=== PATIENT | female | born 1965 | race Caucasian/White ===

== ENCOUNTER → 2023-05-01 10:44 | Outpatient (BNVA) | payer OTHER, SELFPAY | PROVIDERS: Visit Provider Physician Assistant Surgical ==

== ENCOUNTER → 2023-05-14 11:07 | Outpatient (BNVA) | payer OTHER, SELFPAY | PROVIDERS: Visit Provider Surgery ==

== ENCOUNTER 2023-05-21 09:03 | Outpatient (REF) | payer OTHER, SELFPAY ==
--- NOTE | ~2023-05-21 | XR_ITS ---
EXAMINATION: XR CHEST CLINICAL INFORMATION: Morbid obesity. Preop. COMPARISON: None available. TECHNIQUE: 2 views of the chest were obtained. FINDINGS: No significant abnormality is noted involving the heart, lungs, mediastinum, bony thorax or soft tissues. XR/XR chest 2V IMPRESSION: No acute disease.
--- NOTE | 2023-05-21 09:13 | ECG_ITS ---
Test Reason : MORBID OBESITY Blood Pressure : / mmHG Vent. Rate : 080 BPM Atrial Rate : 080 BPM P-R Int : 138 ms QRS Dur : 084 ms QT Int : 394 ms P-R-T Axes : 031 083 018 degrees QTc Int : 454 ms Artifact in tracing Normal sinus rhythm Nonspecific T wave abnormality Abnormal ECG No previous ECGs available Referred By: Trav Florentino Electronically Signed By:CORRINA RUFF
[2023-05-21 09:32] LABS: MANUAL DIFF FLAG NO
[2023-05-21 09:46] LABS: Basophils Percent Auto 0.4 % (0-2); Eosinophils Absolute Auto 0.1 X10*3/uL (0.0-0.4); Eosinophils Percent Auto 0.7 % (0-4); Hematocrit 38.1 % (37.0-47.0); Imm Gran Abs Auto 0.02 X10*3/uL (0.00-0.03); Imm Gran Pct Auto 0.2 % (0.0-0.4); Lymphocytes Absolute Auto 1.6 X10*3/uL (1.2-4.9); Lymphocytes Percent Auto 16.3 % (20-40); Mean Corpuscular HGB Conc 34.1 g/dl (31.0-35.0); Mean Corpuscular Hemoglobin 27.8 pg (27.0-33.0); Mean Corpuscular Volume 81.4 fL (80.0-98.0); Mean Platelet Volume 12.5 fL (9.4-12.3); Monocytes Absolute Auto 0.8 X10*3/uL (0.1-1.2); Monocytes Percent Auto 8.2 % (2-11); Neutrophils Absolute Auto 7.2 x10*3/uL (2.0-8.3); Neutrophils Percent Auto 74.2 % (45-73); Platelet Count 185 X10*3/uL (160-400); Red Blood Count 4.68 X10*6/uL (4.20-5.50); Red Cell Distribution Width 13.2 % (11.0-16.0); White Blood Count 9.7 X10*3/uL (4.8-10.8)
[2023-05-21 10:15] LABS: Estimated Average Glucose 114 mg/dL; Hemoglobin A1c % 5.6 %
[2023-05-21 11:19] LABS: Folate 10.3 ng/mL (> or = 4.0); Vitamin B12 399 pg/mL (200-900)
[2023-05-21 12:02] LABS: Alanine Aminotransferase 20 U/L (0-31); Albumin Level 4.3 g/dL (3.5-5.0); Alkaline Phosphatase 89 U/L (39-117); Anion Gap 14 (12-20); Aspartate Amino Transferase 21 U/L (5-31); Blood Urea Nitrogen 16 mg/dL (9-16); Carbon Dioxide 30 mmol/L (22-29); Chloride 102 mmol/L (96-108); Cholesterol 157 mg/dL; Estimated Glomerular Filt Rate > 60; Glucose Random 108 mg/dL (60-115); HDL Cholesterol 33 mg/dL; Iron 46 mcg/dL (30-160); LDL Cholesterol Calculated 100 mg/dl; Percent Iron Saturation 17 % (15-50); Potassium 3.6 mmol/L (3.3-5.1); Sodium 142 mmol/L (135-145); Total Iron Binding Capacity 264 mcg/dL (228-428); Total Protein 7.5 g/dL (6.5-8.0); Triglycerides 120 mg/dL; Unsaturated Iron Binding 218 ug/dL
[2023-05-21 12:21] LABS: Ferritin 161 ng/mL (10-250); TSH reflex Free T4 2.05 uIU/mL (0.32-4.0); Vitamin D 25-OH Total 40.5 ng/mL (>30)
[2023-05-21 12:42] LABS: Insulin 13 uU/mL (2-29)
[2023-05-22 20:38] LABS: Calcium (PTHI) 9.5 mg/dL (8.6-10.4); PTHI 76 pg/mL (16-77)
[2023-05-24 06:13] LABS: Zinc 79 mcg/dL (60-130)
[2023-05-24 23:48] LABS: Vitamin A 48 mcg/dL (38-98)
[2023-05-25 14:48] LABS: Vitamin B1 9 nmol/L (8-30)
== END 2023-05-21 09:04 | disposition home or self-care (01) ==
LOC: HO.LAB 09:03
PROVIDERS: PCP Internal Medicine; Visit Provider Surgery
DX: E03.9 Hypothyroidism, unspecified (principal); E66.01 Morbid (severe) obesity due to excess calories; I10 Essential (primary) hypertension; E78.5 Hyperlipidemia, unspecified
CPT/HCPCS: 36415; 71046; 80053; 80061; 82306; 82607; 82728; 82746; 83036; 83525; 83540; 83970; 84425; 84443; 84590; 84630; 85025; 86140; 93005

== ENCOUNTER 2023-05-28 08:38 | Outpatient (REF) | payer OTHER, SELFPAY ==
--- NOTE | ~2023-05-28 | US_ITS ---
EXAMINATION: US COMPLETE ABDOMEN WITH LIVER ELASTOGRAPHY CLINICAL INFORMATION: Morbid obesity. COMPARISON: None available. TECHNIQUE: Real-time imaging of the abdominal viscera. Noninvasive ultrasound liver fibrosis assessment is performed using Tree ElastPQ point quantification shear wave elastography (2D-SWE) with a C5-2 MHz transducer. Multiple elastography samples are obtained. FINDINGS: PANCREAS: Normal. The visualized pancreatic head and body are normal in appearance. The remainder of the pancreas is obscured from visualization by the overlying bowel gas. ABDOMINAL AORTA: The proximal, middle, and distal aortic segments are normal in caliber. INFERIOR VENA CAVA: Visualized portions are normal. LIVER: The liver has diffuse increased echogenicity consistent with fatty infiltration/hepatocellular disease. No focal mass or intrahepatic bile duct dilatation is seen. The right lobe measures 15.7 cm in length. The left lobe measures 8.9 cm in length. Portal flow is hepatopedal. Shear wave liver elastography median stiffness is 2.04 m/s (reference: normal median stiffness is 1.3 m/s or less). IQR/median stiffness to assess sampling precision is 0.19 (reference: good quality data set is IQR/median stiffness of 0.15 or less). Elasticity measurements were limited due to difficulty to get accurate areas to sample. GALLBLADDER: Cholelithiasis is present. There appears to be an echogenic focus consistent with cholesterol crystal. With the gallbladder wall not being thickened and with lack of multiple echogenic foci with twinkle artifact I do not feel that this is related to adenomyomatosis. COMMON BILE DUCT: Normal in caliber measuring 0.5 cm in diameter. RIGHT KIDNEY: Normal. No hydronephrosis. No renal calculi or focal parenchymal lesions. The kidney measures 10.6 cm in maximum dimension. LEFT KIDNEY: Normal without hydronephrosis. No renal calculi or focal parenchymal lesions identified. The kidney measures 11.3 cm in maximum dimension. SPLEEN: Normal. The spleen measures 11.4 cm in maximum dimension. FREE FLUID: None. US/US abdomen comp w elastography IMPRESSION: 1. Diffuse increased echogenicity of the liver consistent with fatty infiltration/hepatocellular disease. Cholelithiasis with cholesterol polyp. 2. Liver elastography: Although measurements are suggestive of compensated advanced chronic liver disease, there is statistical variability of the sampling which decreases accuracy. REFERENCE: Society of Radiologists in Ultrasound Liver Stiffness Thresholds (2020): LIVER STIFFNESS THRESHOLDS: *Liver Stiffness equal or less than 1.3 m/s: High probability of being normal. *Liver Stiffness less than 1.7 m/s: In the absence of other known clinical signs, rules out compensated advanced chronic liver disease. *Liver Stiffness 1.7-2.1 m/s: Suggestive of compensated advanced chronic liver disease but need further test for confirmation. *Liver Stiffness over 2.1 m/s: Rules in compensated advanced chronic liver disease. *Liver Stiffness over 2.4 m/s: Suggestive of clinically significant portal hypertension. QUALITY OF DATA SET: *IQR/Median value equal or less than 0.15 implies a quality data set. *IQR/Median value over 0.15 implies a poor quality data set. SIGNIFICANT CHANGE FROM PRIOR EXAM: Significant change if liver stiffness measurement is 10% or greater from prior exam. OTHER CONSIDERATIONS: The stage of liver fibrosis may be overestimated in the setting of acute hepatitis, liver inflammation, elevated liver function tests, hepatic vascular congestion, obstructive cholestasis, non-fasting state, and infiltrative diseases such as amyloidosis and lymphoma. In some patients with NAFLD, the liver stiffness thresholds for compensated advanced chronic liver disease may be lower. In causes other than viral hepatitis and NAFLD, liver stiffness thresholds are not well established.
== END 2023-05-28 08:39 | disposition home or self-care (01) ==
LOC: HO.US 08:38
PROVIDERS: PCP Internal Medicine; Visit Provider Surgery
DX: E66.01 Morbid (severe) obesity due to excess calories (principal); E03.9 Hypothyroidism, unspecified; I10 Essential (primary) hypertension
CPT/HCPCS: 76705; 76981

== ENCOUNTER 2023-06-05 13:14 | Outpatient (AMB) | payer OTHER, SELFPAY ==
--- NOTE | 2023-06-05 13:06 | MHC.AMNUTRGE ---
Intake VS Expanded 06/05/23 13:11 Height 5 ft 3 in Weight 222 lb BMI 39.3 Intake Visit Reasons: VIDEO Initial Nutrition SWL Blocker Heated Metal Forms Required: No Allergies No Known Allergies Allergy (Verified 05/14/23 11:36) HPI Nutrition Presentation Details [employer]CH[employer] weight 05/14/23 - 229# Current weight 222# Reason for consult elevated BMI Diet Assmnt Details 2 protein shakes Zone perfect bar dinner: 8 forks of protein, and same amount of salad zone perfect bar Exercise: doing a variety of things , stationary bike, swimming, walking SWL online classes: completed. scored well Patient shares she really appreciates the support that the program provides. This attracted her to our program initially. Dietary counseling reduction Who buys your food self Who prepares/cooks your food self Meal frequency regular: lunch (avocado toast), dinner (protein and veg) and snacks (portuguese yogurt) and irregular: breakfast Lifestyle Eating out 1-3 times/week Family support Yes (she is having a family reunion ) Food frequency Dairy: daily, Fruit: daily, Vegetables: daily, Grains/pasta/breads/cereal (carbs): daily, Meats/poultry/fish (protein): daily, Meat substitutes/nuts/seeds/legumes: daily, Processed foods/meats: daily and Restaurants/fast foods: several times weekly (pizza, lithuanian food or grinders . Used to dine out and get salmon, chicken, chicken parm) Diagnosis Nutrition problem #1 overweight/obesity As related to (etiology) #1 excess energy intake and physical inactivity As evidenced by (sign/symptom) #1 high BMI Monitoring/Goals Nutrition problem monitoring total energy intake, level of knowledge/skill, total PRO intake, total CHO intake and weight Outcome progress progressing Learning/Education Readiness to learn excellent Stages of change action Educational materials provided Yes Most Recent Diabetes Results: Cholesterol 157 mg/dL 05/21/23 HDL Cholesterol 33 mg/dL 05/21/23 Triglycerides 120 mg/dL 05/21/23 Creatinine 0.84 mg/dL (0.5-1.4) 05/21/23 Blood Urea Nitrogen 16 mg/dL (9-16) 05/21/23 Sodium 142 mmol/L (135-145) 05/21/23 Potassium 3.6 mmol/L (3.3-5.1) 05/21/23 Chloride 102 mmol/L (96-108) 05/21/23 Carbon Dioxide 30 mmol/L (22-29) H 05/21/23 Calcium 10.0 mg/dL (8.4-10.2) 05/21/23 AST 21 U/L (5-31) 05/21/23 ALT 20 U/L (0-31) 05/21/23 Total Protein 7.5 g/dL (6.5-8.0) 05/21/23 Albumin 4.3 g/dL (3.5-5.0) 05/21/23 [facility] Medical History (Updated 05/25/23 @ 21:49 by Trav Florentino MD) DJD (degenerative joint disease) Hyperlipidemia Hypertension Hypothyroidism Morbid obesity Surgical History (Updated 05/01/23 @ 10:52 by SOFIA Daley) History of salpingo-oophorectomy Hx of section Hx of tonsillectomy Family History (Updated 05/01/23 @ 11:00 by SOFIA Daley) Mother Cancer Father Cancer Brother No problems noted. Brother No problems noted. Brother No problems noted. Brother No problems noted. Brother No problems noted. Sister No problems noted. Sister No problems noted. Son No problems noted. Daughter No problems noted. Daughter Hyperthyroidism Social History (Updated 05/01/23 @ 10:51 by SOFIA Daley) Alcohol intake: never Patient Tobacco Use Status: Never used Tobacco Assessment & Plan Assessment & Plan (1) Morbid obesity: Code(s): E66.01 - Morbid (severe) obesity due to excess calories Patient Instructions: Patient is cleared from a nutrition standpoint for bariatric surgery. Educational requirements have been completed. Reviewed vitamin supplementation and commitment to protein shake for several months post surgery. Encouraged communication with office as needed. Telehealth Telehealth Location of provider rendering services: practice address Location of patient: address on file Patient Identification confirmed using: Name, : Yes Telehealth method: video Patient verbally consented to treatment: Yes Patient verbally consented to billing insurance company: Yes Patient informed of any privacy concerns related to visit: Yes Minutes spent on Phone/Video with Pt.: 30 Coding Level of Care Code Nutr Indiv Subseq (46040) Diagnoses Morbid obesity E66.01 Time Spent (min) 30
[2023-06-05 13:11] VITALS: BMI 39.3
== END 2023-06-05 13:36 | disposition home or self-care (01) ==
LOC: HO.HBS 13:14
PROVIDERS: PCP Internal Medicine; Visit Provider Dietitian, Registered
DX: E66.01 Morbid (severe) obesity due to excess calories (principal)

== ENCOUNTER → 2023-06-05 13:14 | Outpatient (BNVA) | payer OTHER, SELFPAY | PROVIDERS: PCP Internal Medicine; Visit Provider Dietitian, Registered | DX: E66.01 Morbid (severe) obesity due to excess calories (principal); Z68.39 Body mass index [BMI] 39.0-39.9, adult; Z71.3 Dietary counseling and surveillance | CPT/HCPCS: 97803 ==

== ENCOUNTER 2023-06-18 08:30 | Outpatient (AMB) | payer OTHER, SELFPAY ==
--- NOTE | 2023-06-18 08:47 | A.OFFWM_ITS ---
Intake Intake Visit Reasons: VIDEO BH Intake Allergies No Known Allergies Allergy (Verified 05/14/23 11:36) [facility] Medical History (Updated 06/18/23 @ 09:23 by Kay Iraheta) DJD (degenerative joint disease) Hyperlipidemia Hypertension Hypothyroidism Morbid obesity Surgical History (Updated 05/01/23 @ 10:52 by SOFIA Daley) History of salpingo-oophorectomy Hx of section Hx of tonsillectomy Family History (Updated 05/01/23 @ 11:00 by SOFIA Daley) Mother Cancer Father Cancer Brother No problems noted. Brother No problems noted. Brother No problems noted. Brother No problems noted. Brother No problems noted. Sister No problems noted. Sister No problems noted. Son No problems noted. Daughter No problems noted. Daughter Hyperthyroidism Social History (Updated 05/01/23 @ 10:51 by SOFIA Daley) Alcohol intake: never Patient Tobacco Use Status: Never used Tobacco Behavioral Health Assessment Weight Management Therapy Therapy Notes Details Patient is looking to have weight loss surgery to help improve her health and quality of life. She reported years a go over 20 years ago, she was in therapy due to dysfunctional marriage, she used therapy for support and to cope. She denied any inpatient psychiatric admissions, or problems with drugs. She reported a distant past with alcohol (binge drinking but has not drank for 14 years). No eating disorder diagnosis per her report. Presenting Concerns Referral Source provider Reason for referral weight loss surgery evaluation Precipitating Event obesity Living Situation Current Living Situation Own At risk of losing current housing? No Satisfied with current living situation? Yes Comments Pt lives with her 22 year old daughter and her . Food/Weight/Diet Expectations of change weight loss and maintenance. History/Relationship with food Pt stated that she cut out bread and rice years ago. She reported eating pasta, ice cream every night, Kyrgyz yogurt with gra montse, avocado toast, multigrain crackers and fruit, or chips, meats, potatoes, veggies of all kind. She would stop eating around 7pm. She reported eating large portions some of the time. History/Relationship with weight Pt stated that after menopause she struggled with her weight. However always struggled with weight fluctuations. History/Relationship with dieting She stated that several years ago she cut out white carbs and exercised but could not prevent weight gain post menopause. Binge Eating Do you frequently eat large amounts of food in short periods of time, not feeling physically hungry? Yes Do you feel out of control when you eat a large amount of food in a short period of time? No Do you eat large amounts of food rapidly and typically alone? No Night Eating Do you wake up at least once during the night to eat? No If you wake up in the night, do you find that it is necessary to eat something in order to fall back asleep? No Do you have little or no appetite in the morning and feel very hungry in the evening, often overeating between dinner and when you go to bed? No Social History Family history and relationship Patient is to her second . She has two step daughters and two biological adult children. She was born and raised in [place] [facility] by her parents, she is one of 8 children. Parental/Familial solar installer obligations none Developmental history and status none noted Social support family, , children Community support oriental orthodox Restorationist/Spirituality Baptist Cultural/Ethnic information Korean Legal Involvement and History Current or historical involvement with the legal system? none reported Education Preferred learning style Auditory, Verbal, Written, Learn by doing and Visual Currently enrolled in educational program? No Interested in further educational program? 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 No Meaningful activities exercise, swimming, Financial Situation Describe current financial situation Occasional struggle Financial assistance? None Service Service? No Mental Health and Addiction Treatment Current/Past substance abuse? No Current/Past addictive behavior concerns? No Medical and Physical Health Summary Physical exam in the last year? Yes Pain Screening Current pain? No Pain in the last few months? No Medications Is the patient compliant with medications? Yes Does the patient have Polo Guardian in place? Not applicable Does the patient use complimentary health approaches? No Trauma/Abuse History History of trauma? No Questionnaires PHQ-9 Over the last 2 weeks, how often have you been bothered by any of the following problems? 1. Little interest or pleasure in doing things: not at all 2. Feeling down, depressed, or hopeless: not at all 3. Trouble falling or staying asleep, or sleeping too much: several days 4. Feeling tired or having little energy: several days 5. Poor appetite or overeating: several days 6. Feeling bad about yourself - or that you are a failure or have let yourself or your family down: not at all 7. Trouble concentrating on things, such as reading the newspaper or watching television: not at all 8. Moving or speaking so slowly that other people could have noticed. Or the opposite - being so fidgety or restless that you have been moving around a lot more than usual: not at all 9. Thoughts that you would be better off or of hurting yourself in some way: not at all Total score: 3 Depression Screening Interpretation: Negative Source: Developed by Drs. Christian Sosa, Kathryn Rodarte, Quinton Fang and colleagues, with an educational mark from [employer]. Binge Eating Scale Group 1 A. I don't feel self-conscious about my wt. or body size when I'm with others. B. I feel concerned about how I look to others, but it normally does not make me fell disappointed with myself C. I do get self-conscious about my appearance and wt. which makes me feel disappointed in myself. D. I feel very self-conscious about my wt. and frequently I feel intense shame and disgust for myself. I try to avoid social contacts because of my self- consciousness. Response Group 1: C Group 2 A. I don't have any difficulty eating slowly in the proper manner. B. Although I seem to gobble down foods, I don't end up feeling stuffed because of eating to much. C. At times, I tend to eat quickly and then, I feel uncomfortably full afterwards. D. I have the habit of bolting down my food, without really chewing it. When this happens I usually feel uncomfortably stuffed because I've eaten to much. Response Group 2: C Group 3 A. I feel capable to control my eating urges when I want to. B. I feel like I have failed to control my eating more than the average person. C. I feel utterly helpless when it comes to feeling in control of my eating urges. D. Because I feel so helpless about controlling my eating I have become very desperate about trying to get control. Response Group 3: A Group 4 A. I don't have the habit of eating when I'm bored. B. I sometimes eat when I'm bored, but often I'm able to get busy and get my mind off food. C. I have a regular habit of eating when I'm bored, but occasionally, I can use some other activity to get my mind off eating. D. I have a strong habit of eating when I'm bored. Nothing seems to help me breath the habit. Response Group 4: B Group 5 A. I'm usually physically hungry when I eat something. B. Occasionally, I eat something on impulse even though I really am not hungry. C. I have the regular habit of eating foods, that I might not really enjoy, to satisfy a hungry feeling even though physically, I don't need the food. D. Although I'm not physically hungry, I get a hungry feeling in my mouth that only seems to be satisfied when I eat a food, like sandwich, that fills my mouth. Sometimes, when I eat the food to satisfy my mouth hunger, I then spit the food out so I won't gain weight. Response Group 5: B Group 6 A. I don't feel any guilt or self-hate after I overeat. B. After I overeat, occasionally I feel guilt or self-hate. C. Almost all the time I experience strong guilt or self-hate after I overeat. Response Group 6: A Group 7 A. I don't lose total control of my eating when dieting even after periods when I overeat. B. Sometimes when I eat a forbidden food on a diet, I feel like I blew it and eat even more. C. Frequently, I have the habit of saying to myself, I've blown it now, why not go all the way, when I overeat on a diet. When that happens I eat more. D. I have a regular habit of starting a strict diets for myself but I break the diets by going on an eating binge. My life seems to be either a feast or famine. Response Group 7: A Group 8 A. I rarely eat so much food that I feel uncomfortably stuffed afterwards. B. Usually about once a month, I each such a quantity of food, I end up feeling very stuffed. C. I have regular periods during the month when I eat large amounts of food, either at mealtime or at snacks. D. I eat so much food that I regularly feel quite uncomfortable after eating and sometimes a bit nauseous. Response Group 8: B Group 9 A. My level of calorie intake does not go up very high or go down very low on a regular basis. B. Sometimes after I overeat, I will try to reduce my caloric intake to almost nothing to compensate for the excess calories I've eaten. C. I have a regular habit of overeating during the night. It seems that my routine is not to be hungry in the morning but overeat in the evening. D. In my adult years, I have had week-long periods where I practically starve myself. This follows periods when I overeat. It seems I live a life of either feast or famine. Response Group 9: A Group 10 A. I usually am able to stop eating when I want to. I know when enough is enough. B. Every so often, I experience a compulsion to eat which I can't seem to control. C. Frequently, I experience strong urges to eat which I seem unable to control, but at other times I can control my eating urges. D. I feel incapable of controlling urges to eat. I have a fear of not being able to stop eating voluntarily. Response Group 10: A Group 11 A. I don't have any problem stopping eating when I feel full. B. I usually can stop eating when I feel full but occasionally overeat leaving me feeling uncomfortably stuffed. C. I have a problem stopping eating once I start and usually I feel uncomfortably stuffed after I eat a meal. D. Because I have a problem not being able to stop eating when I want, I sometimes have to induce vomiting to relieve my stuffed feeling. Response Group 11: B Group 12 A. I seem to eat just as much when I'm with others, Family social gatherings as when I'm by myself. B. Sometimes, when I'm with other persons, I don't eat as much as I want to eat because I'm self-conscious about my eating. C. Frequently, I eat only a small amount of food when others are present, because I'm very embarrassed about my eating. D. I feel so ashamed about overeating that I pick times to overeat when I know no one will see me. I feel like a closet eater. Response Group 12: A Group 13 A. I eat three meals a day with only an occasional between meal snack. B. I eat 3 meals a day, but I also normally snack between meals. C. When I am snacking heavily, I get in the habit of skipping regular meals. D. There are regular periods when I seem to be continually eating, with no planned meals. Response Group 13: A Group 14 A. I don't think much about trying to control unwanted eating urges. B. At least some of the time, I feel my thoughts are pre-occupied with trying to control my eating urges. C. I feel that frequently I spend much time thinking about how much I ate or about trying not to eat anymore. D. It seems to me that most of my waking hours are pre-occupied by thoughts about eating or not eating. I feel like I'm constantly struggling not to eat. Response Group 14: B Group 15 A. I don't think about food a great deal. B. I have strong craving for food but they last only for brief periods of time. C. I have days when I can't seem to think about anything else but food. D. Most of my days seem to be pre-occupied with thoughts about food. I feel like I live to eat. Response Group 15: A Group 16 A. I usually know whether or not I'm physically hungry. I take the right portion of food to satisfy me. B. Occasionally, I feel uncertain about knowing whether or not I'm physically hungry. A these times it's hard to know how much food I should take to satisfy me. C. Even though I might know how many calories I should eat, I don't have any idea what is a normal amount of food for me. Response Group 16: A Binge Eating Score: 9 Score less than 17 Minimal Risk Score between 18-26 Moderate Risk Score between 27-46 High Risk Assessment & Plan Assessment & Plan (1) Adjustment disorder, unspecified: Code(s): F43.20 - Adjustment disorder, unspecified (2) Morbid obesity: Code(s): E66.01 - Morbid (severe) obesity due to excess calories Plan Patient is doing very well in the program. She is committed, motivated, and disciplined. She would make an excellent surgical candidate and is cleared for surgery when ready. Telehealth Telehealth Location of provider rendering services: practice address Location of patient: address on file Patient Identification confirmed using: Name, : Yes Telehealth method: video Patient verbally consented to treatment: Yes Patient verbally consented to billing insurance company: Yes Patient informed of any privacy concerns related to visit: Yes Minutes spent on Phone/Video with Pt.: 45 Coding Level of Care Code Tele Psy Diag Eval (12371) Diagnoses Adjustment disorder, unspecified F43.20 Morbid obesity E66.01 Time Spent (min) 45
== END 2023-06-18 09:18 | disposition home or self-care (01) ==
LOC: HO.HBST 09:16
PROVIDERS: PCP Internal Medicine; Visit Provider Counselor Mental Health
DX: F43.20 Adjustment disorder, unspecified (principal); E66.01 Morbid (severe) obesity due to excess calories
CPT/HCPCS: 90791

== ENCOUNTER → 2023-06-18 08:30 | Outpatient (BNVA) | payer OTHER, SELFPAY | PROVIDERS: PCP Internal Medicine; Visit Provider Counselor Mental Health ==

== ENCOUNTER 2023-06-19 09:14 | Outpatient (REF) | payer OTHER, SELFPAY ==
[2023-06-24 14:57] LABS: H Pylori Breath Test Negative (Negative)
== END 2023-06-19 09:15 | disposition home or self-care (01) ==
LOC: HO.LNP 09:14
PROVIDERS: Surgery; PCP Internal Medicine; Visit Provider Physician Assistant Surgical
DX: E66.01 Morbid (severe) obesity due to excess calories (principal)
CPT/HCPCS: 83013

== ENCOUNTER 2023-06-19 09:14 | Outpatient (AMB) | payer OTHER, SELFPAY ==
--- NOTE | 2023-06-19 09:27 | A.OFFVIS_ITS ---
Intake VS Expanded 06/19/23 09:33 Height 5 ft 3 in Weight 215 lb 9.6 oz BMI 38.2 BP 148/69 H Blood Pressure Location Rt brachial Blood Pressure Position Sitting Pulse 72 Pulse Source Pulse Oximeter Temp 97.4 F Temperature Source Temporal Artery Scan Pulse Oximetry 98 Oxygen Delivery Method Room Air Body Fat 105.6 Body Fat Percentage 49.0 Free Fat Mass 109.8 Muscle Mass 104.2 Visceral Mass 15.0 Water Mass 77.8 BMR 1,561 Intake Visit Reasons: (OV) F/U SWL & H. Pylori X Ray Technician Required: No Allergies No Known Allergies Allergy (Verified 06/19/23 09:32) Medication List - Last Reconciled 06/19/23 by NATE Pena [AIRBORNE IMMUNE SUPPORT PO] atorvastatin 10 mg PO DAILY levothyroxine 50 mcg PO DAILY lisinopril 30 mg PO DAILY mecobalamin (vitamin B12) 1,000 mcg sublingual DAILY HPI HPI Comments History of Present Illness Details 58 yo female returns for Pre-op care Initial weight on 05/14/23 was 229 pounds with a BMI of 40.6 Weight today is: 215.6 pounds with a BMI of 38.2 weight loss: 13.4 pounds or 5.8 % TBWL She states she was decreased on her BP med lisinopril by her PCP about 2 weeks ago. She still experiences 1-2 x per week a lightheaded feeling upon arising from a seated position. BP at home 100s-110/50s-60s after the decrease of her lisinopril. She is still taking HCTZ 12.5 mg daily. States following meal plan exactly but notices some hunger in the morning and before dinner. meal plan: 2 plant-based organic Orgain protein (buy at [employer], [employer], [employer], [employer]) shakes (HALF scoop EACH in 8oz low fat unsweetened almond milk each) at 5am-7am and 8am-10am, 2 protein bars (Zone Perfect protein bars, buy at [employer], [employer], [employer], or [employer]) at 11am-1pm and 2pm-4pm, dinner at 5pm (8 forks of protein and 8 forks of salad/vegetables) AND one more protein bar after dinner at 7pm-9pm. Drinking 64 oz water daily exercise plan: walking 3-4 x per week 30-45 minutes, about 300 calories bike, 3 x per week 15 minutes, 50 calories walking in pool 3 x per week, 20-30 minutes [facility] Medical History (Updated 06/19/23 @ 10:11 by NAET Pena) DJD (degenerative joint disease) Hyperlipidemia Hypertension Hypothyroidism Morbid obesity Surgical History History of salpingo-oophorectomy Hx of section Hx of tonsillectomy Family History Mother Cancer Father Cancer Brother No problems noted. Brother No problems noted. Brother No problems noted. Brother No problems noted. Brother No problems noted. Sister No problems noted. Sister No problems noted. Son No problems noted. Daughter No problems noted. Daughter Hyperthyroidism Social History Alcohol intake: never Patient Tobacco Use Status: Never used Tobacco Review of Systems Const All systems reviewed & are unremarkable except as noted in HPI and below Physical Exam Const General: healthy appearing and no acute distress Resp Effort & Inspection: normal respiratory effort Auscultation: clear to auscultation bilaterally Cardio Rate: regular rate Rhythm: regular rhythm GI Auscultation: normal bowel sounds Extrem General: Yes normal to inspection Assessment & Plan Assessment & Plan (1) Obesity (BMI 30-39.9): Code(s): E66.9 - Obesity, unspecified Plan: change meal plan to: 2 plant-based organic Orgain protein shakes (HALF scoop EACH in 8oz low fat unsweetened almond milk each) at 5am-7am and 8am-10am, 2 protein bars (Zone Perfect protein bars) at 11am-1pm and 2pm-4pm, dinner at 5pm (8 forks of protein and 8 forks of salad/vegetables) AND 1/2 protein bar after dinner at 7pm-8pm. Cleared by RD/BH awaiting UGI continue exercises reminded of upcoming appt w Dr Hicks (2) Hypertension: Code(s): I10 - Essential (primary) hypertension Plan: Lisinopril decreased to 30 mg and pt still sx suggested to stop HCTZ She wanted to discuss with Dr Hicks Coding Level of Care Code Est Pt Level 3 (59660) Diagnoses Obesity (BMI 30-39.9) E66.9 Hypertension I10
[2023-06-19 09:33] VITALS: BP 148/69; PULSE 72; TEMP 36.3; O2SAT 98; BMI 38.2
== END 2023-06-19 10:14 | disposition home or self-care (01) ==
PROVIDERS: PCP Internal Medicine; Visit Provider Physician Assistant Surgical
DX: E66.9 Obesity, unspecified (principal); Z68.38 Body mass index [BMI] 38.0-38.9, adult; I10 Essential (primary) hypertension
CPT/HCPCS: 99213

== ENCOUNTER 2023-07-04 08:02 | Outpatient (AMB) | payer OTHER, SELFPAY ==
--- NOTE | 2023-07-04 08:49 | MHC.OFFVISWM ---
Intake VS Expanded 07/04/23 08:59 Height 5 ft 3 in Weight 210 lb 6 oz BMI 37.3 Body Fat 104.8 Body Fat Percentage 49.8 Free Fat Mass 105.8 Visceral Mass 19 Water Mass 72.4 BMR 1,403 Intake Visit Reasons: TV Follow Up SWL Allergies No Known Allergies Allergy (Verified 06/19/23 09:32) HPI TV Follow Up SWL HPI Details Start time: 8.45am, End time: 9.01am ?I spent 11 minutes speaking with the patient on the phone plus an additional 5 minutes reviewing and updating records for a total of 16 minutes HPI Comments History of Present Illness Details Overall weight loss: 18.4lbs, or 8.03% TBWL Is doing 2 Orgain protein shakes (1/2 scoop each in 8oz almond milk), 2-3 Zone Perfect protein bars, and one meal (8 forks of meat and 8 forks of salad or vegetables) Exercise: walking for 30 minutes, swimming for 30 minutes, stationary bike for 30 minutes for 300 calories per day or more PFSH Medical History (Updated 07/04/23 @ 08:58 by Trav Florentino MD) DJD (degenerative joint disease) Hyperlipidemia Hypertension Hypothyroidism Morbid obesity Surgical History History of salpingo-oophorectomy Hx of section Hx of tonsillectomy Family History Mother Cancer Father Cancer Brother No problems noted. Brother No problems noted. Brother No problems noted. Brother No problems noted. Brother No problems noted. Sister No problems noted. Sister No problems noted. Son No problems noted. Daughter No problems noted. Daughter Hyperthyroidism Social History Alcohol intake: never Patient Tobacco Use Status: Never used Tobacco Assessment & Plan Assessment & Plan (1) Obesity (BMI 30-39.9): Code(s): E66.9 - Obesity, unspecified Plan: 1. Continue same nutritional plan of 2 Orgain protein shakes (1/2 scoop each in 8oz almond milk), 2-3 Zone Perfect protein bars, and one meal (8 forks of meat and 8 forks of salad or vegetables) 2. Exercise: Continue walking for 30 minutes, swimming for 30 minutes, stationary bike for 30 minutes for 300 calories per day or more per day 3. Continue to send me weight measurements weekly on Wednesdays (2) BMI 37.0-37.9, adult: Code(s): Z68.37 - Body mass index [BMI] 37.0-37.9, adult Telehealth Telehealth Location of provider rendering services: practice address Location of patient: address on file Patient Identification confirmed using: Name, : Yes Telehealth method: voice only Patient verbally consented to treatment: Yes Patient verbally consented to billing insurance company: Yes Patient informed of any privacy concerns related to visit: Yes Minutes spent on Phone/Video with Pt.: 16 Coding Level of Care Code Tele Est Pt Level 2 (22546) Diagnoses Obesity (BMI 30-39.9) E66.9 BMI 37.0-37.9, adult Z68.37 Time Spent (min) 16
[2023-07-04 08:59] VITALS: BMI 37.3
== END 2023-07-04 09:02 | disposition home or self-care (01) ==
LOC: HO.HBS 08:02
PROVIDERS: PCP Internal Medicine; Visit Provider Surgery
DX: E66.9 Obesity, unspecified (principal); Z68.37 Body mass index [BMI] 37.0-37.9, adult
CPT/HCPCS: 99212

== ENCOUNTER → 2023-07-04 08:02 | Outpatient (BNVA) | payer OTHER, SELFPAY | PROVIDERS: PCP Internal Medicine; Visit Provider Surgery ==

== ENCOUNTER → 2023-07-06 08:43 | Outpatient (REF) | payer OTHER, SELFPAY ==
--- NOTE | ~2023-07-06 | NM_ITS ---
Exercise Myocardial perfusion study Indication: Abnormal EKG to evaluate for myocardial ischemia Technique: The patient was brought in for an exercise perfusion study on 07/06/2023. Patient performed exercise as per Barrett protocol and was injected 30 mCi of sestamibi was given intravenously one target HR was achieved. Images were obtained using the SPECT gamma camera interlaced with the gating device. Images were obtained in supine position. Resting perfusion study was performed on 07/10/2023. Patient was administered 30 mCi of sestamibi intravenously at rest. Images were then obtained in supine position. Images obtained with and without CT attenuation. Total DLP 157 mGy-cm. Images were processed with the software and compared side to side in short axis, horizontal long axis and vertical long axis views. Findings: The stress perfusion study showed both attenuated as well as non attenuated corrected images show normal uptake of radiotracer in all segments of LV myocardium. The gated study shows normal LV systolic function with calculated LVEF of greater than 70%. LV cavity is normal in size. The gated study shows normal systolic wall thickening and contraction of all segments. There is no transient ischemic dilation. Resting study shows both attenuated as well as non attenuated images show mildly reduced uptake in the apex of the LV myocardium. Gating at rest reveals normal systolic wall motion with ejection fraction at greater than 70%. The findings are consistent with normal myocardial perfusion. NM/NM cardiolite stress test Impression: 1. Normal myocardial perfusion 2. Gated LVEF is greater than 70% 3. Transient ischemic dilatation not present Stress EKG is suggestive of ischemia
--- NOTE | 2023-07-06 08:48 | CA_ITS ---
Acquisition Time: 2023-07-06 10:28:18 Total Exercise Time: 00:05:01 Test Indications: Abnornmal EKG Medications: Protocol: CHENG Max HR: 166 BPM 103% of Pred: 160 BPM Max BP: 144/082 mmHG Max Work Load: 7.0 METS Exercise stress test exercise 5 min 1 sec of Cheng protocol achieving 103% MPHR, with moderate SOB, no chest discomfort, without arrhythmias, with normotensive response to exercise, with downsloping ST lead 3, aVF, V4-V6 Nuclear images pending. Test reviewed with Dr. Crouch. Referred By: Trav Florentino Overread By: Tabitha Cornelius
--- NOTE | 2023-07-06 08:48 | CA_ITS ---
Transthoracic Echocardiogram Patient (Last, First, Middle): Molly Spann, Gender: Female Date of : 1965 Age: 58 Procedure Date: 07/06/2023 Procedure Type: Transthoracic Echocardiogram Location: OP Height: 160.02 cm Weight: 94.8 kg BSA: 1.97 m2 Heart Rate: bpm BP: 117 / 60 mmHg Assistant To The Vice President: TO Referring MD: Trav Florentino MD Symptoms: R94.31 - Abnormal electrocardiogram [ECG] [EKG] Study Quality: Fair/Contrast Conclusions: - Normal left ventricular size and systolic function. There is mildly increased left ventricular wall thickness. The visually estimated ejection fraction is between 55-60%. There is no evidence of regional wall motion abnormalities. Diastolic function is normal for age. - Normal right ventricular cavity size and systolic function. Findings Procedure Information Contrast agent, definity, is being given per protocol without apparent complications. Left Ventricle Normal left ventricular size and systolic function. There is mildly increased left ventricular wall thickness. The visually estimated ejection fraction is between 55-60%. There is no evidence of regional wall motion abnormalities. Diastolic function is normal for age. Right Ventricle Normal right ventricular cavity size and systolic function. Atria The left atrium is normal in size. The right atrium is normal in size. Aortic Valve Normal aortic valve structure and function. There is no aortic valve stenosis. There is no aortic valve regurgitation. Mitral Valve The mitral valve appears normal. There is no mitral valve regurgitation. There is no mitral valve stenosis. Pulmonic Valve The pulmonic valve is likely normal. Tricuspid Valve Normal tricuspid valve structure. There is trace tricuspid valve regurgitation. Tricuspid regurgitation envelope is inadequate for calculation of right ventricular systolic pressure. Normal right atrial pressure. Venous The inferior vena cava is normal in size and collapses greater than 50% with inspiration. Pericardium/Pleural There is no evidence of pericardial effusion. Prior Study Comparison No prior study available for comparison. Measurements 2D Linear Measurements IVSd: 1.10 0.6-0.9/0.6-1.0 cm LVIDd: 4.67 3.9-5.3/4.2-5.9 cm LVIDd Index: 2.37 2.4-3.2/2.2-3.1 cm/m2 LVIDs: 2.95 2.0-3.6 cm LVPWd: 1.04 0.7-1.1 cm LA Diam: 3.90 2.7-3.8/3.0-4.0 cm LAIDs Index: 1.98 1.5-2.3 cm/m2 LV Mass: 222.53 67-162/88-224 g LV Mass Index: 112.96 43-95/49-115 g/m2 LVOT Diam: 2.00 3.0+(-)1.3 cm 2D Systolic Function EF 4C: 61.10 >55% EF 2C: 64.70 >55% EF BiP: 64.10 >55% Mitral Valve MV Pk E: 0.65 MV PK A: 0.63 MV Decel Time: 167.00 E/A: 1.00 E'Lateral: 13.50 E'Medial: 8.70 E/E' Med: 7.40 E/E' Lat: 4.80 PHT: 49.00 MVA PHT: 4.49 Decel [place]: 3.87 Aortic Valve AoV Pk Graeme: 1.25 AoV Mn Graeme: 0.86 AoV VTI: 0.28 AoV Pk Grad: 6.00 Aov Mn Grad: 3.00 POLINA Cont.VTI: 2.28 LVOT LVOT Pk Graeme: 0.91 LVOT Mn Graeme: 0.57 LVOT VTI: 0.20 LVOT Pk Grad: 3.00 LVOT Mn Grad: 2.00 LVOT Diam: 2.00 LVOT Area: 3.14 Diastolic Function MV Pk E: 0.65 MV Pk A: 0.63 E/A: 1.00 E'Medial: 8.70 E/E' Med: 7.40 E' Laterial: 13.50 E/E' Lat: 4.80 Right Ventricle TAPSE (mm): 21.20 TVS' Graeme: 10.70 Tricuspid Valve RA Press: 3.00 Great Vessels Aorta Sinus of Valsalva: 2.82 2.0-3.[address] Ridge: 2.42 1.7-3.4 cm Ao Asc: 3.00 2.1-3.4 cm Updated in Other Vendor System with Status of Final Misbah Crouch MD electronically signed on 07/08/2023 5:42:08 PM with status of Final
== END ==
LOC: HO.CARD 08:43
PROVIDERS: Visit Provider Surgery
DX: R94.31 Abnormal electrocardiogram [ECG] [EKG] (principal)
CPT/HCPCS: 78452; 93017; 93306; A9500; Q9957

== ENCOUNTER → 2023-07-06 08:48 | Outpatient (BNV) | payer OTHER, SELFPAY | PROVIDERS: Visit Provider Nurse Practitioner | DX: R94.31 Abnormal electrocardiogram [ECG] [EKG] (principal) | CPT/HCPCS: 78452; 93016; 93018; 93306 ==

== ENCOUNTER 2023-07-19 09:37 | Outpatient (AMB) | payer OTHER, SELFPAY ==
[2023-07-19 09:55] VITALS: BP 140/80; PULSE 73; BMI 36.9
--- NOTE | 2023-07-19 09:55 | MHC.OFFVIS ---
Intake Vital Signs 07/19/23 09:55 Height 5 ft 3 in Weight 208 lb 1.862 oz BMI 36.9 BP 140/80 H Blood Pressure Location Lt brachial Position Sitting Pulse 73 Intake Visit Reasons: NPV/Abnormal cardiac function study/IChari Hillulos Intake Note: NPV Seo Marketing Specialist Required: No Accompanied by: Self / Same As Patient Allergies No Known Allergies Allergy (Verified 07/19/23 09:56) Medication List - Last Reconciled 07/19/23 by Everardo Varma MD [AIRBORNE IMMUNE SUPPORT PO] atorvastatin 10 mg PO DAILY levothyroxine 50 mcg PO DAILY lisinopril-hydrochlorothiazide 10-12.5 mg 1 tab PO DAILY mecobalamin (vitamin B12) 1,000 mcg sublingual DAILY HPI HPI Comments History of Present Illness Details Thank you for referring Molly in cardiology consultation today for preoperative cardiovascular risk stratification prior to bariatric surgery. She is a pleasant 58-year-old woman with prior S2 history of hypertension, hyperlipidemia has gender bariatric program and with the medical weight loss has lost about 22 lb and has been very motivated to pursue laparoscopic gastric sleeve correction. She was referred for preoperative cardiovascular risk stratification through your office. She underwent a treadmill stress test which at moderate workload was negative for any symptoms but EKG positive. Subsequent myocardial perfusion imaging shows normal myocardial perfusion suggestive false-positive EKG changes. She also had an echocardiogram which shows normal LV systolic function without major valvular abnormality and no obstructive physiology. Patient denies any cardiac symptoms. She says she exercise on a regular basis and walks for more than 30 minutes and performs aerobic exercise without any complaints. Her exercise capacity on the stress test was greater than 6 METs. She has no symptoms of heart failure. She has no symptoms of angina. No prolonged palpitation irregular heartbeat. Since medical intervention, she says a blood pressure has been reducing and she has cut down her antihypertensives. PFSH Medical History DJD (degenerative joint disease) Hyperlipidemia Hypertension Hypothyroidism Morbid obesity Surgical History History of salpingo-oophorectomy Hx of section Hx of tonsillectomy Family History Mother Cancer Father Cancer Brother No problems noted. Brother No problems noted. Brother No problems noted. Brother No problems noted. Brother No problems noted. Sister No problems noted. Sister No problems noted. Son No problems noted. Daughter No problems noted. Daughter Hyperthyroidism Social History Alcohol intake: never Patient Tobacco Use Status: Never used Tobacco Review of Systems Const Denies chills, Denies daytime sleepiness, Denies fatigue, Denies fever(s), Denies frequent falls, Denies night sweats, Denies snoring, Denies weakness, Denies weight gain and Denies weight loss Eyes Denies loss of vision ENT Denies dizziness and Denies hearing loss Card Denies chest pain, Denies chest pain with activity, Denies syncope, Denies rapid heart rate, Denies edema, Denies claudication, Denies leg edema, Denies lightheadedness, Denies palpitations, Denies dyspnea, Denies dyspnea on exertion and Denies orthopnea Resp Denies cough, Denies excessive phlegm production, Denies dyspnea, Denies dyspnea on exertion, Denies snoring and Denies wheezing GI Denies abdominal pain, Denies hematochezia, Denies change in bowel habits, Denies change in stool character, Denies heartburn, Denies nausea and Denies vomiting Denies hematuria, Denies urinary frequency and Denies dysuria Musc Denies arthralgias, Denies muscle weakness, Denies numbness and Denies tingling Skin/Breast Denies nail changes and Denies rash Neuro Denies Abnormal speech present, Denies dizziness, Denies syncope, Denies frequent falls, Denies loss of vision, Denies memory loss, Denies numbness, Denies tingling and Denies weakness Psych Denies depression and Denies memory loss Endo Denies fatigue and Denies palpitations Aller/Immun Denies wheezing Physical Exam Vital Signs: Last Vital Signs Pulse 73 07/19/23 09:55 BP 140/80 H 07/19/23 09:55 BMI result Body Mass Index 36.9 Const General: cooperative, comfortable, no acute distress, alert, awake, Physically active, anxious and well groomed Nutritional Appearance: obese Orientation/consciousness: patient oriented x3 Limitations: no limitations HEENT Head: Yes normocephalic and Yes atraumatic Neck Neck: Yes trachea midline, Yes supple and Yes no JVD Resp Effort & Inspection: normal respiratory effort Auscultation: clear to auscultation bilaterally Cardio Jugular venous distension: no JVD Palpation: normal PMI Rate: regular rate Rhythm: regular rhythm Heart sounds: S1 normal heart sound present, S2 normal heart sound present, no click, no gallops and no murmurs GI Auscultation: normal bowel sounds Skin General skin exam: no rashes or lesions noted Neuro General: patient oriented x3 and no focal motor deficits Speech: No Abnormal speech present Extrem General: Yes no clubbing, cyanosis or edema Assessment & Plan Assessment & Plan (1) Preoperative cardiovascular examination: Code(s): Z01.810 - Encounter for preprocedural cardiovascular examination Plan: Preoperative cardiovascular risk stratification in this middle-aged woman with multiple risk factors to undergo bariatric correction for weight management. She has already seen benefits with weight loss in treatment of hypertension. She is very excited and looking forward to the surgery. She underwent a myocardial perfusion imaging with exercise treadmill stress test with about 6 Mets physical capacity with normal myocardial perfusion. EKG was positive during the stress test but most likely related to false-positive results either due to gender and/or hypertension. Her echocardiogram shows normal LV systolic function without major valvular abnormality. She has no cardiac symptoms. Currently she is optimized to undergo surgery with low risk for perioperative cardiovascular morbidity mortality. Continue her antihypertensives in the perioperative. . No further workup is indicated at this point time. This was discussed with the patient and she was quite delighted to hear this. She is looking forward to have further interventions to improve her body weight and improve her medical comorbidities. Will follow up in the clinic if need be. Thank you for allowing me to partake in her care Coding Level of Care Code New Pt Level 4 (47989) Diagnoses Preoperative cardiovascular examination Z01.810
== END 2023-07-19 10:16 | disposition home or self-care (01) ==
PROVIDERS: Visit Provider Internal Medicine Cardiovascular Disease
DX: Z01.810 Encounter for preprocedural cardiovascular examination (principal); E66.01 Morbid (severe) obesity due to excess calories; Z68.37 Body mass index [BMI] 37.0-37.9, adult
CPT/HCPCS: 99203

== ENCOUNTER → 2023-07-19 09:37 | Outpatient (BNVA) | payer OTHER, SELFPAY | PROVIDERS: Visit Provider Internal Medicine Cardiovascular Disease ==

== ENCOUNTER 2023-07-20 09:12 | Outpatient (REF) | payer OTHER, SELFPAY ==
--- NOTE | ~2023-07-20 | FL_ITS ---
PROCEDURE: XR FLUOROSCOPY UPPER GI WITH AIR CLINICAL INFORMATION: Morbid/severe obesity due to excess calories. COMPARISON: None available. TECHNIQUE: Routine upper GI air-contrast study was performed in upright and lying position. FINDINGS: Following oral administration of thick barium and effervescent granules there is normal propagation of barium from the oral cavity through the pharynx, esophagus into stomach. No obstruction narrowing seen. A small nonobstructive esophageal webs along the anterior wall of the pharynx. On placing supine and prone lying the course, caliber and peristalsis of the stomach and the duodenal bulb is normal. There is mild gastroesophageal reflux without hiatal hernia. Incidental finding of 2 radiopaque gallstones in the right upper quadrant are noted. FLUOROSCOPY TIME: 1.9 minutes DOSE AREA PRODUCT: 37.202 uGy-m2 (microgray-meter squared) FL/FL upper GI w air IMPRESSION: Unremarkable upper GI air-contrast study.
== END 2023-07-20 09:13 | disposition home or self-care (01) ==
LOC: HO.XRAY 09:12
PROVIDERS: Visit Provider Surgery
DX: E66.01 Morbid (severe) obesity due to excess calories (principal); E03.9 Hypothyroidism, unspecified; E78.5 Hyperlipidemia, unspecified; I10 Essential (primary) hypertension
CPT/HCPCS: 74246

== ENCOUNTER → 2023-07-20 09:16 | Outpatient (BNV) | payer OTHER, SELFPAY | PROVIDERS: Visit Provider Radiology Diagnostic Radiology | DX: Z01.818 Encounter for other preprocedural examination (principal) | CPT/HCPCS: 74246 ==

== ENCOUNTER 2023-08-01 08:04 | Outpatient (AMB) | payer OTHER, SELFPAY ==
--- NOTE | 2023-08-01 11:39 | MHC.OFFVISWM ---
Intake VS Expanded 08/01/23 11:46 Height 5 ft 3 in Weight 200 lb BMI 35.4 Body Fat 93.8 Body Fat Percentage 46.9 Free Fat Mass 106.2 Visceral Mass 18 Water Mass 72.8 BMR 1,413 Intake Visit Reasons: TV Follow Up SWL Allergies No Known Allergies Allergy (Verified 07/19/23 09:56) HPI TV Follow Up SWL HPI Details Start time: 11.31am, End time: 11.51am ?I spent 15 minutes speaking with the patient on the phone plus an additional 5 minutes reviewing and updating records for a total of 20 minutes HPI Comments History of Present Illness Details Overall weight loss: 29lbs, or 12.66% TBWL Is doing 2 Orgain protein shakes (1/2 scoop in 8oz almond milk), 2 Zone Perfect protein bars and one meal (8 forks of protein and 8 forks of salad or vegetables) Exercise: walking outside for 200-300 calories for 5 days per week and stationary bike for 100 calories daily PFSH Medical History DJD (degenerative joint disease) Hyperlipidemia Hypertension Hypothyroidism Morbid obesity Surgical History History of salpingo-oophorectomy Hx of section Hx of tonsillectomy Family History Mother Cancer Father Cancer Brother No problems noted. Brother No problems noted. Brother No problems noted. Brother No problems noted. Brother No problems noted. Sister No problems noted. Sister No problems noted. Son No problems noted. Daughter No problems noted. Daughter Hyperthyroidism Social History Alcohol intake: never Patient Tobacco Use Status: Never used Tobacco Assessment & Plan Assessment & Plan (1) Obesity (BMI 30-39.9): Code(s): E66.9 - Obesity, unspecified Plan: 1. Plan for lap sleeve gastrectomy including upper GI endoscopy. All tests has been completed and reviewed and the patient is cleared for the surgery. ?If diaphragmatic or ventral hernias are present at time of surgery, these will be repaired laparoscopically as well. Risks and complications were discussed in detail including possible conversion to an open procedure, anastomotic leak, bleeding requiring transfusion, small bowel obstruction, , DVT and pulmonary embolism, cardiac, or pulmonary complications, as joint terminal attack controller complications such as anastomotic ulcer, insufficient weight loss and vitamin deficiencies. I emphasized the importance of close follow-up, adherence to instructions and good communication. So far she has proven to be an excellent communicator and very compliant with all our directions accomplishing a great weight loss. I believe that she is an excellent candidate and she is ready. 2. Continue same nutritional plan of shakes (1/2 scoop in 8oz almond milk), 2 Zone Perfect protein bars and one meal (8 forks of protein and 8 forks of salad or vegetables) 3. Exercise: continue walking outside for 200-300 calories for 5 days per week and stationary bike for 100 calories daily 4. Continue to send me weight measurements weekly on Wednesdays (2) BMI 35.0-35.9,adult: Code(s): Z68.35 - Body mass index [BMI] 35.0-35.9, adult Telehealth Telehealth Location of provider rendering services: practice address Location of patient: address on file Patient Identification confirmed using: Name, : Yes Telehealth method: voice only Patient verbally consented to treatment: Yes Patient verbally consented to billing insurance company: Yes Patient informed of any privacy concerns related to visit: Yes Minutes spent on Phone/Video with Pt.: 20 Coding Level of Care Code Tele Est Pt Level 3 (53067) Diagnoses Obesity (BMI 30-39.9) E66.9 BMI 35.0-35.9,adult Z68.35 Time Spent (min) 20
[2023-08-01 11:46] VITALS: BMI 35.4
== END 2023-08-01 11:52 | disposition home or self-care (01) ==
LOC: HO.HBS 08:04
PROVIDERS: Visit Provider Surgery
DX: E66.9 Obesity, unspecified (principal); Z68.35 Body mass index [BMI] 35.0-35.9, adult
CPT/HCPCS: 99213

== ENCOUNTER → 2023-08-01 08:04 | Outpatient (BNVA) | payer OTHER, SELFPAY | PROVIDERS: Visit Provider Surgery ==

== ENCOUNTER 2023-08-17 10:55 | Outpatient (AMB) | payer OTHER, SELFPAY ==
--- NOTE | 2023-08-17 10:48 | MHC.OFFVISWM ---
Intake VS Expanded 08/17/23 11:00 Height 5 ft 3 in Weight 197 lb 6 oz BMI 35.0 Body Fat 91.2 Body Fat Percentage 46.2 Free Fat Mass 106.4 Visceral Mass 17 Water Mass 72.9 BMR 1,403 Intake Visit Reasons: TV Pre Op LSG 08/28/23 Allergies No Known Allergies Allergy (Verified 08/17/23 10:48) Medication List - Last Reconciled 08/17/23 by Trav Florentino MD [[facility] IMMUNE SUPPORT PO] atorvastatin 10 mg PO DAILY levothyroxine 50 mcg PO DAILY lisinopril-hydrochlorothiazide 10-12.5 mg 1 tab PO DAILY mecobalamin (vitamin B12) 1,000 mcg sublingual DAILY ondansetron 4 mg PO Q12H pantoprazole 40 mg PO DAILY polyethylene glycol 3350 (Miralax) 17 grams PO DAILY sucralfate 10 mL PO BID HPI TV Pre Op LSG 08/28/23 HPI Details Start time: 10.40am, End time: 11.08am ?I spent 23 minutes speaking with the patient on the phone plus an additional 5 minutes reviewing and updating records for a total of 28 minutes HPI Comments History of Present Illness Details Overall weight loss: 31.4lbs, or 13.7% TBWL Is doing 4 Orgain protein shakes (1/2 scoop in almond milk) and one Swedish yogurt or a fruit Exercise: is doing stationary bike x6 days per week to 100-150 calories PFSH Medical History DJD (degenerative joint disease) Hyperlipidemia Hypertension Hypothyroidism Morbid obesity Surgical History History of salpingo-oophorectomy Hx of section Hx of tonsillectomy Family History Mother Cancer Father Cancer Brother No problems noted. Brother No problems noted. Brother No problems noted. Brother No problems noted. Brother No problems noted. Sister No problems noted. Sister No problems noted. Son No problems noted. Daughter No problems noted. Daughter Hyperthyroidism Social History Alcohol intake: never Patient Tobacco Use Status: Never used Tobacco Assessment & Plan Assessment & Plan (1) Obesity (BMI 30-39.9): Code(s): E66.9 - Obesity, unspecified Plan: 1. Plan for lap sleeve gastrectomy including upper GI endoscopy. All tests has been completed and reviewed and the patient is cleared for the surgery. ?If diaphragmatic or ventral hernias are present at time of surgery, these will be repaired laparoscopically as well. Risks and complications were discussed in detail including possible conversion to an open procedure, anastomotic leak, bleeding requiring transfusion, small bowel obstruction, , DVT and pulmonary embolism, cardiac, or pulmonary complications, as keno terminal operator complications such as anastomotic ulcer, insufficient weight loss and vitamin deficiencies. I emphasized the importance of close follow-up, adherence to instructions and good communication. So far she has proven to be an excellent communicator and very compliant with all our directions accomplishing a great weight loss. I believe that she is an excellent candidate and she is ready. 2. Preop prescriptions were provided and explained the purpose of each one. Need to be purchased preop. Start Pantoprazole now as you get it from the pharmacy, 1 pill per day. Sucralfate and Zofran are for after surgery as needed. 3. Bowel prep: please do 7 packets ?of Miralax mixing each one with a an 8oz glass of water, crystal light, gatorade zero, or propel ?on 08/26/23 and the same amount on 08/27/23. Continue the protein shakes during? the bowel prep. 4. Needs to purchase 1oz medicine cups . 5. Needs to purchase Children's liquid Tylenol for postop pain control. 6. Avoid aspirin, motrin, Advil, Aleve, Ibuprofen, Naproxyn. Tylenol is OK. 7. She needs to purchase the Celebrate 4:1 protein shakes from the hospital's gift shop. 8. Importance of adherence to postop folllow-up and recommendations was underscored and she understands that. 9. Stop food and bars as of tomorrow 08/18/23 and continue with 5 Orgain protein shakes (ONE scoop EACH in 8oz almond milk) [id number], 9am-11am, 12pm-2pm, 3pm-5pm and 6pm-8pm. 10. No soups, broths or V8 11. The patient's?medical?history has been reviewed and they are considered low risk for post op DVT and therefore DVT prophylaxis is not considered necessary. Travel after surgery was reviewed. The patient has not disclosed any travel plans during the first 30 days after surgery and they have been advised that within the first 30 days after surgery any bus, plane, train or car travel over 2 hours in duration is contraindicated due to the possibility of developing blood clots from immobility. Any travel, needs to include periods of ambulation of 10 minutes in duration every 2 hours.? Patient was instructed to discuss any plans for travel during this period with their bariatric surgeon.? 12. Please take at the day of surgery the following medications: 13. Absolutely no smoking or vaping, or marijuana until the surgery and for at least the first 4 weeks. Only nicotine patches are allowed. 14. Send me weight measurements on Sunday and then on Sunday08/28/23 the day of surgery before you go to the hospital. 15. Avoid any steroids by mouth for any reason. Let me know if someone prescribes them to you (2) BMI 31.0-31.9,adult: Code(s): Z68.31 - Body mass index [BMI] 31.0-31.9, adult Medications: New pantoprazole 40 mg PO DAILY 30 tabs 2RF K21.9 - Gastro-esophageal reflux disease without esophagitis sucralfate 10 mL PO BID 400 mL 2RF K21.9 - Gastro-esophageal reflux disease without esophagitis ondansetron Only take one every 12 hours as needed if you have nausea 4 mg PO Q12H 20 tabs 0RF nausea and vomiting R11.0 - Nausea polyethylene glycol 3350 (Miralax) Mix each packet with 8oz of water, Crystal light, or Gatorade zero, or Propel and do 7 packets on 08/26/23 and another 7 packets on 08/27/23 17 grams PO DAILY 14 ea 0RF Z01.818 - Encounter for other preprocedural examination Telehealth Telehealth Location of provider rendering services: practice address Location of patient: address on file Patient Identification confirmed using: Name, : Yes Telehealth method: voice only Patient verbally consented to treatment: Yes Patient verbally consented to billing insurance company: Yes Patient informed of any privacy concerns related to visit: Yes Minutes spent on Phone/Video with Pt.: 28 Coding Level of Care Code Tele Est Pt Level 3 (69479) Diagnoses Obesity (BMI 30-39.9) E66.9 BMI 31.0-31.9,adult Z68.31 Time Spent (min) 28
[2023-08-17 11:00] VITALS: BMI 35.0
== END 2023-08-17 11:09 | disposition home or self-care (01) ==
LOC: HO.HBS 10:55
PROVIDERS: PCP Internal Medicine; Visit Provider Surgery
DX: E66.9 Obesity, unspecified (principal); Z68.31 Body mass index [BMI] 31.0-31.9, adult
CPT/HCPCS: 99213

== ENCOUNTER → 2023-08-17 10:55 | Outpatient (BNVA) | payer OTHER, SELFPAY | PROVIDERS: PCP Internal Medicine; Visit Provider Surgery | DX: K21.9 Gastro-esophageal reflux disease without esophagitis (principal); R11.0 Nausea; Z01.818 Encounter for other preprocedural examination ==

== ENCOUNTER 2023-08-28 06:40 | Day surgery (SDC) | payer OTHER, SELFPAY ==
[2023-08-17 08:34] LABS: MANUAL DIFF FLAG NO
[2023-08-17 09:11] LABS: Basophils Percent Auto 0.3 % (0-2); Eosinophils Percent Auto 0.3 % (0-4); Hematocrit 38.1 % (37.0-47.0); Hemoglobin 13.2 g/dl (12.0-16.0); Imm Gran Abs Auto 0.02 X10*3/uL (0.00-0.03); Imm Gran Pct Auto 0.3 % (0.0-0.4); Lymphocytes Absolute Auto 1.1 X10*3/uL (1.2-4.9); Mean Corpuscular HGB Conc 34.6 g/dl (31.0-35.0); Mean Corpuscular Hemoglobin 27.6 pg (27.0-33.0); Mean Corpuscular Volume 79.5 fL (80.0-98.0); Mean Platelet Volume 13.4 fL (9.4-12.3); Monocytes Absolute Auto 0.5 X10*3/uL (0.1-1.2); Neutrophils Absolute Auto 6.1 x10*3/uL (2.0-8.3); Neutrophils Percent Auto 78.1 % (45-73); Platelet Count 155 X10*3/uL (160-400); Red Blood Count 4.79 X10*6/uL (4.20-5.50); Red Cell Distribution Width 13.1 % (11.0-16.0); White Blood Count 7.7 X10*3/uL (4.8-10.8)
[2023-08-17 09:20] LABS: INTERNATIONAL NORM RATIO 1.1 (0.9-1.1); Prothrombin Time 13.4 SEC (11.1-13.3)
[2023-08-17 09:22] LABS: Partial Thromboplastin Time 37.9 SEC (26.0-36.4)
[2023-08-17 09:23] LABS: Estimated Average Glucose 111 mg/dL; Hemoglobin A1c % 5.5 % (<6.0)
[2023-08-17 10:11] LABS: Alanine Aminotransferase 24 U/L (0-31); Albumin Level 4.3 g/dL (3.5-5.0); Alkaline Phosphatase 72 U/L (39-117); Anion Gap 15 (12-20); Aspartate Amino Transferase 29 U/L (5-31); Bilirubin Total 0.8 mg/dL (0.0-1.0); Blood Urea Nitrogen 8 mg/dL (9-16); C Reactive Protein 1.88 mg/dL (< or = 0.50); Calcium 9.9 mg/dL (8.4-10.2); Carbon Dioxide 26 mmol/L (22-29); Chloride 97 mmol/L (96-108); Cholesterol 118 mg/dL (<200); Estimated Glomerular Filt Rate > 60; Glucose Random 95 mg/dL (60-115); HDL Cholesterol 38 mg/dL (>40); Iron 47 mcg/dL (30-160); LDL Cholesterol Calculated 68 mg/dL (<100); Percent Iron Saturation 18 % (15-50); Potassium 3.8 mmol/L (3.3-5.1); Sodium 134 mmol/L (135-145); Total Iron Binding Capacity 257 mcg/dL (228-428); Total Protein 7.4 g/dL (6.5-8.0); Triglycerides 64 mg/dL (<150); Unsaturated Iron Binding 210 ug/dL
[2023-08-17 10:28] LABS: Vitamin B12 1012 pg/mL (200-900)
[2023-08-17 10:30] LABS: Ferritin 252 ng/mL (10-250); Vitamin D 25-OH Total 41.6 ng/mL (>30)
[2023-08-20 14:38] LABS: Calcium (PTHI) 9.9 mg/dL (8.6-10.4); PTHI 50 pg/mL (16-77)
[2023-08-21 06:39] LABS: Zinc 84 mcg/dL (60-130)
[2023-08-23 06:13] LABS: Vitamin B1 7 nmol/L (8-30)
[2023-08-23 12:49] LABS: Vitamin A 39 mcg/dL (38-98)
[2023-08-24 10:13] VITALS: BMI 33.5
--- NOTE | 2023-08-24 22:45 | MHC.SHP ---
Pre-Procedural Eval Section A Date of Service: 08/24/23 The patient is an INPATIENT: No The History & Physical has been completed within 30 days and I have reviewed it.: Yes Section B Chief Complaint: Obesity, unspecified Relevant Family History (Specify if Yes): No Relevant Social History: None Present Medications: None Medical History: No relevant PMH History of Previous Operations: No relevant previous surgery Allergies: Allergies Allergy/AdvReac Type Severity Reaction Status Date / Time No Known Allergies Allergy Verified 08/17/23 10:48 Review of Systems Sugical H&P ROS: Negative: Constitution, Cardiovascular, Respiratory, Neurological, Psychiatric, Hem-Onc, Allergic/Immunologic, Gastrointestinal, Genitourinary, Musculoskeletal, Integumentary, Endocrine and Eyes/Ears/Nose/Throat Exam Surgical H&P Exam: Normal: HEENT, Normal: Heart, Normal: Lungs, Normal: Extremities, Normal: Abdomen, Normal: Skin and Normal: Neurological Plan Diagnosis/Plan: Unchanged I have reviewed the history and physical and performed a pertinent physical examination on my patient. No changes have occurred unless specified. Time Spent With Patient Time: Total time managing care of this patient today ____ minutes.
--- NOTE | 2023-08-27 08:19 | HO.ANESPROP2 ---
Documented by User: Susan Marroquin NP 08/27/23 08:22 HPI - Anesthesia Eval Consult details Narrative: 58yo F for Gastrectomy Sleeve, EGD, possible diaphragmatic hernia, possible ventral hernia, possible open Cardiac optimized (false positive EKG changes on exercise stress test) FORMERLY [facility], [facility] Active Problems Active Problems: All Active Problems (Updated 08/24/23 @ 10:11 by Rekha Thomason RN) BMI 31.0-31.9,adult (Acute) Pre-op exam (Acute) BMI 35.0-35.9,adult (Acute) Preoperative cardiovascular examination (Acute) Abnormal stress test (Acute) BMI 37.0-37.9, adult (Acute) Obesity (BMI 30-39.9) (Acute) Adjustment disorder, unspecified (Acute) Vitamin B12 deficiency (Acute) Abnormal EKG (Acute) DJD (degenerative joint disease) (Acute) Hyperlipidemia (Acute) Hypothyroidism (Acute) Hypertension (Acute) Morbid obesity (Acute) Past Medical History Medical History (Updated 08/24/23 @ 10:11 by Rekha Thomason RN) Pericarditis DJD (degenerative joint disease) Hyperlipidemia Hypothyroidism Hypertension Morbid obesity Family History Family History Mother Cancer Father Cancer Brother No problems noted. Brother No problems noted. Brother No problems noted. Brother No problems noted. Brother No problems noted. Sister No problems noted. Sister No problems noted. Son No problems noted. Daughter No problems noted. Daughter Hyperthyroidism Surgical History Surgical History (Updated 08/24/23 @ 10:13 by Rekha Thomason RN) H/O colonoscopy History of salpingo-oophorectomy Hx of section Hx of tonsillectomy Social History Social History Are you a primary home health care respiratory therapist to a significant other at home: No Do you presently have visiting nurse or other home services: No Alcohol intake: never Patient Tobacco Use Status: Former Tobacco user Quit Date: 2010 Tobacco use type: Cigarette Years Smoked: 20 Use of substances other than those prescribed or required for medical reasons: No Have you been hit, kicked, punched, or otherwise hurt by someone within the past year? If so, by whom?: No Are you DNR?: No Advance Directives: No (states is primary contact) Advance Directives Information Provided: Yes (brochure mailed) Advance Directives on File: No Recently lost weight without trying: No Eating poorly because of decreased appetite: No Nutrition Risks: No Nutritional Risk FDLMP: N/A Poor oral hygiene: No (upper & lower partials) Meds Allergies Allergy/AdvReac Type Severity Reaction Status Date / Time No Known Allergies Allergy Verified 08/17/23 10:48 Home Medications Medication Instructions Recorded Confirmed Last Taken Type atorvastatin 10 mg tablet 10 mg PO BEDTIME 05/01/23 08/24/23 08/27/23 History lisinopril 10 1 tab PO DAILY 07/19/23 08/24/23 08/27/23 History mg-hydrochlorothiazide 12.5 mg tablet levothyroxine 25 mcg tablet 25 mcg PO QAM 08/24/23 08/24/23 08/28/23 History pantoprazole 40 mg tablet,delayed 40 mg PO BEDTIME 08/24/23 08/24/23 08/27/23 History release Exam Exam Date and Time: August 27, 2023 0819 Height,Weight and Vital Signs: Height 5 ft 3 in Weight 85.729 kg Pertinent Lab Results Pertinent Lab Results: Laboratory Tests 08/17/23 08/17/23 08:27 08:31 WBC 7.7 RBC 4.79 Hgb 13.2 Hct 38.1 MCV 79.5 L MCH 27.6 MCHC 34.6 RDW 13.1 Plt Count 155 L MPV 13.4 H Immature Gran % (Auto) 0.3 Neut % (Auto) 78.1 H Lymph % (Auto) 14.0 L [place] % (Auto) 7.0 Eos % (Auto) 0.3 Baso % (Auto) 0.3 Lymph # (Auto) 1.1 L [place] # (Auto) 0.5 Eos # (Auto) 0.0 Baso # (Auto) 0.0 Abs Immat Gran (auto) 0.02 Absolute Neuts (auto) 6.1 Absolute Nucleated RBC 0.000 Nucleated RBC % (auto) 0.0 PT 13.4 H INR 1.1 APTT 37.9 H Sodium 134 L Potassium 3.8 Chloride 97 Carbon Dioxide 26 Anion Gap 15 BUN 8 L Creatinine 0.71 Estim Creat Clear Calc TNP Estimated GFR > 60 Random Glucose 95 Estimat Average Glucose 111 Hemoglobin A1c % 5.5 Calcium 9.9 Iron 47 TIBC 257 % Saturation 18 Unsat Iron Binding 210 Ferritin 252 H Total Bilirubin 0.8 AST 29 ALT 24 Alkaline Phosphatase 72 C-Reactive Protein 1.88 H Total Protein 7.4 Albumin 4.3 Triglycerides 64 Cholesterol 118 LDL Cholesterol, Calc 68 HDL Cholesterol 38 L Vitamin A 39 Vitamin B1 7 L Vitamin B12 1012 H 25-OH Vitamin D Total 41.6 TSH 2.10 PTH Intact 50 Calcium (PTH Intact) 9.9 Zinc 84 Blood Type O Positive Antibody Screen NEGATIVE Narrative Narrative: EKG 04/2023 Vent. Rate : 080 BPM Atrial Rate : 080 BPM P-R Int : 138 ms QRS Dur : 084 ms QT Int : 394 ms P-R-T Axes : 031 083 018 degrees QTc Int : 454 ms Artifact in tracing Normal sinus rhythm Nonspecific T wave abnormality Abnormal ECG No previous ECGs available ECHO 06/2023 Conclusions: - Normal left ventricular size and systolic function. There is mildly increased left ventricular wall thickness. The visually estimated ejection fraction is between 55-60%. There is no evidence of regional wall motion abnormalities. Diastolic function is normal for age. - Normal right ventricular cavity size and systolic function. NM cardiolite stress test Impression: 1. Normal myocardial perfusion 2. Gated LVEF is greater than 70% 3. Transient ischemic dilatation not present Stress EKG is suggestive of ischemia Assessment and Plan Assessment Anesthesia Assessment: Chart Reviewed Documented by User: Julia Jimenez MD 08/28/23 09:09 FORMERLY [facility], [facility] Past Medical History Medical History (Updated 08/24/23 @ 10:11 by Rekha Thomason RN) Pericarditis DJD (degenerative joint disease) Hyperlipidemia Hypothyroidism Hypertension Morbid obesity Family History Family History Mother Cancer Father Cancer Brother No problems noted. Brother No problems noted. Brother No problems noted. Brother No problems noted. Brother No problems noted. Sister No problems noted. Sister No problems noted. Son No problems noted. Daughter No problems noted. Daughter Hyperthyroidism Family history of problems with anesthesia: No Surgical History Surgical History (Updated 08/24/23 @ 10:13 by Rekha Thomason RN) H/O colonoscopy History of salpingo-oophorectomy Hx of section Hx of tonsillectomy History of Problems with Anesthesia: No Social History Social History Are you a primary home health care respiratory therapist to a significant other at home: No Do you presently have visiting nurse or other home services: No Alcohol intake: never Patient Tobacco Use Status: Former Tobacco user Quit Date: 2010 Tobacco use type: Cigarette Years Smoked: 20 Use of substances other than those prescribed or required for medical reasons: No Have you been hit, kicked, punched, or otherwise hurt by someone within the past year? If so, by whom?: No Are you DNR?: No Advance Directives: No (states is primary contact) Advance Directives Information Provided: Yes (brochure mailed) Advance Directives on File: No Recently lost weight without trying: No Eating poorly because of decreased appetite: No Nutrition Risks: No Nutritional Risk FDLMP: N/A Poor oral hygiene: No (upper & lower partials) Meds Allergies Allergy/AdvReac Type Severity Reaction Status Date / Time No Known Allergies Allergy Verified 08/17/23 10:48 Home Medications Medication Instructions Recorded Confirmed Last Taken Type atorvastatin 10 mg tablet 10 mg PO BEDTIME 05/01/23 08/24/23 08/27/23 History lisinopril 10 1 tab PO DAILY 07/19/23 08/24/23 08/27/23 History mg-hydrochlorothiazide 12.5 mg tablet levothyroxine 25 mcg tablet 25 mcg PO QAM 08/24/23 08/24/23 08/28/23 History pantoprazole 40 mg tablet,delayed 40 mg PO BEDTIME 08/24/23 08/24/23 08/27/23 History release Exam Airway Mallampati Class: I TM Dist: >3cm Neck ROM: Full Partial: Upper and Lower Assessment and Plan Assessment Anesthesia Assessment: Anesthesia Plan Discussed Final Anesthetic Review Family History of Problems with Anesthesia: No History of Problems with Anesthesia: No NPO: Yes ASA Class: III Final Preanesthetic Review: No Changes in Pt Med Stat, Meds/Allgs Chart Reviewed, Consent Obtained/Reviewed and Anes Risks/Benef Reviewed Patient Risk: Intermediate Procedure Risk: Intermediate Anesthetic Plan Anesthetic Plan: GA Disposition: Standard PACU
[2023-08-28] VITALS (11 sets, daily range): BP systolic 132–181; BP diastolic 58–95; PULSE 55–100; RESP 12–20; TEMP 36.1–37.2; O2SAT 93–100; BMI 33.0; BMI 35.9
[2023-08-28] MEDS: Lactated Ringers 1,000 ML 999 ML IV (08:17)
[2023-08-28] MEDS: Lactated Ringers 1,000 ML 100 ML IVCONT ×2 (08:17→14:39)
[2023-08-28] MEDS: Aprepitant 32 MG/4.4 ML VIAL IVPUSH (08:18)
--- NOTE | 2023-08-28 09:48 | PC.NURSE ---
one liter bolus given and documented in the i/0
--- NOTE | 2023-08-28 10:57 | P.BOP_ITS ---
Brief Operative Note Date of Service: 08/28/23 Pre-op diagnosis: Severe obesity with comorbidities Post-op diagnosis: same Procedure: INITIAL PATIENT BMI ON PRESENTATION AT OUR OFFICE: 35 kg/m2 LAST BMI BEFORE SURGERY: 31.4 kg/m2 COMORBIDITIES: hyperlipidemia, hypothyroidism, hypertension, DJD, liver steatosis, LVH, liver fibrosis ?The patient presented to the Weight Management Program with significant obesity that was negatively impacting the patient's comorbidities as listed above.? The program is a phased program with a special focus on preoperative medical weight management to promote substantial weight loss and prepare the patients for the second phase of the program: bariatric surgery. The patient participated in an intensive weekly lifestyle ?intervention and exercise program during which the patient ?has lost between the initial office visit and the last preoperative visit 31.4lbs, or 13.7% of initial actual body weight. It was deemed appropriate for the patient to now have bariatric surgery. In light of the current Covid-19 pandemic and the well documented strong association of obesity and increased risk of worse outcomes if infected with Covid-19 (REFERENCES: https://pubmed.ncbi.nlm.nih.gov/72312131/ ,? https://pubmed.ncbi.nlm.nih.gov/65343584/ ), any delay in undergoing bariatric surgery may lead to the patient's worsening health condition and increased?risk of more severe Covid-19 disease if infected. In addition a recent?study from [facility] published in [facility] on 11/21/2021 ([email or web address]) found that, among patients with obesity, substantial weight loss achieved with surgery was associated with improved outcomes of COVID-19 infection. The findings suggest that obesity can be a modifiable risk factor for the severity of COVID-19 infection. In addition, the patient met the BMI-criteria for bariatric surgery based on the BMI on initial presentation. The patient should not be penalized for achieving such weight loss because ?it is not sustainable long-term without surgical intervention and it was achieved in preparation for bariatric surgery ?under my direction and based on my published research ([email or web address]).[email or web address] and? https://www.soard.org/article/[email or web address](64)17190-X/pdf ) ?that a 10% preo perative weight loss improves long-term weight loss after surgery and reduces perioperative complications.? Insurance carriers such as [facility] have endorsed my recommendations ?and have included in their policies criteria to include a 10% preoperative weight loss requirement. PROCEDURE: Esophago-gastroscopy, laparoscopic?sleeve?gastrectomy and laparoscopic gastropexy INDICATIONS: This is a 58 year-old female who was electively scheduled for laparoscopic, possibly open?sleeve?gastrectomy. The risks and complications of the procedure were discussed with the patient in advance, particularly the pos sibility of ; pulmonary embolism; staple line leak; bleeding; GERD; cardiac, pulmonary, or renal complications; as well as long-term problems such as insufficient weight loss, vitamin deficiency, strictures, or ulcers. The patient understood all the risks, and was in agreement to proceed with surgery. DESCRIPTION OF PROCEDURE: After informed consent was obtained from the patient, the patient was given preoperative antibiotics, and was transferred to the operating room. After successful induction of general anesthesia, pneumatic compression devices were placed on both lower extremities. An upper endoscopy was performed next. The oropharynx and esophagus appeared to be within normal limits. There was no diaphragmatic hernia present consistent with the findings of the preoperative upper GI. The stomach was entered. Then after all fluid and air were suctioned and the stomach was fully decompressed, the scope was withdrawn and secured in the mid esophagus. The patient was then prepped and draped in the usual sterile manner, and abdominal access was established at the right upper quadrant with the Ambika technique. A 12 mm blunt port was inserted, and the abdomen was insufflated with CO2 to a pressure of 15 mmHg. Under direct visualization, additional ports were placed, specifically two 5 mm Versi-step ports to the left upper quadrant, and a 5 mm Versi-Step port to the right upper quadrant. 1% lidocaine plain was used to infiltrate all port sites as well as all fascia defects. Following that, the patient was placed in a steep reverse Trendelenburg position. An additional 5 mm port was placed to the right flank for the Mediflex retractor that was used to retract the left lobe of the liver. The gastro-esophageal fat pad was opened with the ultrasonic device ([employer]brahimabe at, [employer]) and the anterior esophagus and hiatus were exposed. The angle of His was opened with the ultrasonic device the fundus of the stomach from any diaphragmatic and splenic attachments. I then opened the gastrocolic ligament between the transverse colon and the greater curvature of the stomach with the ultrasonic device to enter the lesser sac and facilitate the ligation of the short gastric vessels. I started at a mid-point along the greater curvature and using the Thunderbeat, all short gastric vessels were divided all the way to the angle of His until the left natanael was completely dissected at its entirety. I then divided the gastro-colic ligament distally to a distance of about 3-4?cm proximal to the esophagus. The stomach was then divided transversely with one Endo GHADA-45 purple and four GHADA-60 articulating purple loads using the DympolIA stapler and loads. Every effort was made that the gastric?sleeve?had a tubular shape and an even caliber throughout. Once the?sleeve?resection was completed, the staple line of the gastric?sleeve?was reinforced with Hemoclips. The resected stomach was retrieved without difficulty from the Ambika port. A gastropexy was then performed in order to prevent postoperative GERD and partial gastric volvulus. Several interrupted 2.0 Surgidac sutures were placed between the?sleeve's staple line and the previously divided greater omentum and gastro-colic ligament using the Endo-Stitch device. ?An upper endoscopy was performed. There was no narrowing at the GE junction. The scope was easily advanced all the way to the pylorus which was clearly visualized. There was no narrowing anywhere and the?sleeve's caliber was even throughout. The?sleeve's staple line was inspected and there was no evidence of ischemia, bleeding or dehiscence. At that point the gastroscope was withdrawn from the patient?s mouth while we were decompressing the bowel and the stomach from any remaining air. I looked into the lesser sac to see how the?sleeve?was situating and it was situating well. There was no bleeding from the staple line, spleen, or short gastric vessels. The Mediflex retractor was removed, and the undersurface of the liver was inspected and there was no bleeding. The patient was placed in supine position. I closed the fascial defect of the 12 mm port site with a figure of eight #1 Polysorb suture. Then 30cc Ropivacaine plain with 10 mg of Dexamethasone were used to infiltrate the fascial closure as well as all skin incisions. A total of 7ml Zynrelef was applied in the Ambika wound. At this point, the abdomen was def lated, all ports were removed under direct vision, and no bleeding was noted from any of the port sites. The skin incisions were irrigated with saline and were closed with?4-0 absorbable monofilament sutures. Steri-Strips and OpSites were used to cover all incisions. The patient was extubated and was transferred in stable condition to the recovery room for further care. I was present and performed all taveras parts of the procedure. Ms. Good was the tv production assistant. There were no residents to assist with this case. Leonides Florentino MD, PhD, FACS Surgeon: Trav Florentino MD Anesthesia: GETA, local and other (TAP block and 7ml Zynrelef) Was an Coin Machine Servicer Repairer used for this Procedure?: No Coin Machine Servicer Repairer: Colette Good Estimated blood loss (mL): 10 IV fluids (mL): 2,500 Urine output (mL): 0 (No Hummel to record output) Pathology: other (Stomach) Condition: stable Disposition: PACU
--- NOTE | 2023-08-28 11:00 | P.PNGS_ITS ---
Subjective Subjective Date of Service: 08/29/23 Interval history: Feels well. Mild incisional pain. She is tolerating phase 1 bariatric diet Physical Exam 2 Vital Signs: Vital Signs: Last Vital Signs Temp 97 F 08/28/23 07:51 Pulse 100 08/28/23 07:51 Resp 20 08/28/23 07:51 BP 144/87 H 08/28/23 07:51 Pulse Ox 99 08/28/23 07:51 O2 Del Method Room Air 08/28/23 07:51 BMI result Body Mass Index 33.0 GI: Inspection: Yes normal to inspection, Yes incision (clean, dry and intact) and Yes obesity Palpation (GI): Soft to palpation Extrem: Right lower extremity: normal to inspection (no calf tenderness) L eft lower extremity: normal to inspection (no calf tenderness) Objective Data Active Medications Hydromorphone HCl (Hydromorphone Hcl 0.5 Mg/0.5 Ml Syringe) 0.5 mg IVPUSH Q5M PRN; Protocol PRN Reason: Pain, Severe (Pain Scale 7-10) Lactated Ringer's (Lr) 1,000 mls @ 100 mls/hr IVCONT .Q10H KALEE Last Admin: 08/28/23 08:17 Dose: 100 mls/hr Documented By: ELLIOT Ondansetron HCl (Ondansetron Hcl 4 Mg/2 Ml Vial) 4 mg IVPUSH ONCE PRN PRN Reason: Nausea and Vomiting Labs 08/29/23 05:47 08/29/23 05:47 Procedures Date of Service Date of Service: 08/29/23 Progress Note: A&P Assessment and plan (1) Obesity (BMI 30-39.9): Status: Acute Assessment and Plan: s/p laparoscopic sleeve gastrectomy and gastropexy Doing well Will check am labs and if OK the patient will be discharged home (2) BMI 31.0-31.9,adult: Status: Acute (3) Hypertension: Status: Acute (4) Hypothyroidism: Status: Acute (5) Hyperlipidemia: Status: Acute (6) DJD (degenerative joint disease): Status: Acute (7) LVH (left ventricular hypertrophy): Status: Acute (8) Liver fibrosis: Status: Acute (9) Steatosis, liver: Status: Acute (10) Cholelithiasis: Status: Acute (11) S/P laparoscopic sleeve gastrectomy: Status: Acute Time Spent With Patient Time: Total time managing care of this patient today ____ minutes. Quality Stroke Does the patient have a stroke diagnosis?: No VTE Prior VTE?: No VTE Risk Level:: Surgical - moderate VTE Device Contraindication: N/A - Device Ordered VTE Drug Contraindication: Treatment Not Indicated
--- NOTE | 2023-08-28 13:06 | PM.DS ---
DS: Providers Provider Date of Service: 08/29/23 Primary care physician: Jose Hermosillo MD DS: Diagnosis Discharge Diagnosis (1) Obesity (BMI 30-39.9): Status: Acute (2) BMI 31.0-31.9,adult: Status: Acute (3) Hypertension: Status: Acute (4) Hypothyroidism: Status: Acute (5) Hyperlipidemia: Status: Acute (6) DJD (degenerative joint disease): Status: Acute (7) LVH (left ventricular hypertrophy): Status: Acute (8) Liver fibrosis: Status: Acute (9) Steatosis, liver: Status: Acute (10) Cholelithiasis: Status: Acute (11) S/P laparoscopic sleeve gastrectomy: Status: Acute DS: Summary Hospital Course Hospital Course: ADMITTING DIAGNOSIS: morbid obesity, HTN, Hypothyroid, HLD DISCHARGE DIAGNOSIS: same, s/p laparoscopic sleeve gastrectomy PAST SURGICAL HISTORY: section PROCEDURE: upper endoscopy, laparoscopic sleeve gastrectomy DISCHARGE SUMMARY: History of Present Illness: The patient is a 58 year-old woman with a BMI of 40.6 kg/m2 and associated co-morbidities as described above. The patient had extensive work-up, lost 31.4 lbs preoperatively and was electively scheduled for laparoscopic, possible open sleeve gastrectomy and gastropexy. Risks and complications of the surgery were discussed with the patient in advance, particularly the possibility of , pulmonary embolism, anastomotic leak, bleeding, bowel injury, GERD, cardiac, renal or pulmonary complications. The patient understood all the risks and was in agreement with the surgical plan. Hospital Course: The patient underwent an uneventful laparoscopic sleeve gastrectomy with gastropexy on the day of admission. Postoperatively, the patient was transferred to the surgical floor. The patient received IV Acetaminophen and IV dilaudid for pain control. Patient was started on bariatric phase 1 diet POD #0. On postoperative day one, the patient was feeling well without nausea, vomiting, fevers, or tachycardia. The patient had some mild incisional pain and the abdomen was soft. On the morning of postoperative day one, the patient was continued on 1 ounce of water or ice every half hour. During the day, the patient did fairly well, having some incisional pain, but able to ambulate adequately and to tolerate liquids well. Since the patient is doing well, we decided that the patient was ready to be discharged. The patient was given instructions to follow-up with me next week and to call my office for any fever over 101, persistent abdominal pain, nausea, vomiting, GERD, symptoms of DVT such as calf tenderness, or leg swelling, or pulmonary embolism such as chest pain or shortness of breath. The patient was also instructed to drink 40-60 ounces of liquids per day using the 1-ounce cups. The patient had been given prescriptions for Tylenol for pain, Zofran prn for nausea, and pantoprazole and carafate previously. The patient was encouraged to ambulate and use the incentive spirometer. The patient was allowed to shower, but no baths, and encouraged to stay active at home. All of these instructions were given to the patient personally. All questions were answered and the patient understood all instructions, the instructions were also given to the patient in print. Time Spent with Patient Time attestation: Total time managing care of this patient today ____ minutes. Discharge coordination time: Less than 30 minutes Quality: Safe Use of Opioids Does Pt have an Active Cancer Diagnosis on the Problem List?: No Quality: Stroke Does the patient have a stroke diagnosis?: No Physical Exam Vital Signs: Vital Signs: Last Vital Signs Temp 97 F 08/28/23 07:51 Pulse 100 08/28/23 07:51 Resp 20 08/28/23 07:51 BP 144/87 H 08/28/23 07:51 Pulse Ox 99 08/28/23 07:51 O2 Del Method Room Air 08/28/23 07:51 BMI result Body Mass Index 33.0 DS: Data Data Completed and Pending Pending studies at discharge: Pending at discharge 08/28/23 12:17 Surgical [PTH] Routine Discharge Plan Discharge Patient Disposition: Home, Self-Care Referrals: Jose Hermosillo MD [Primary Care Provider] - 1 Week Discharge Medications: Held lisinopril-hydrochlorothiazide 10-12.5 mg tablet 1 tab PO DAILY Hold Instructions: Resume on 08/30/23. Check your blood pressure every evening and send it to Dr. Florentino. Do not take the medication before you hear from Dr. Florentino. Do not take the medication if your blood pressure is below 120/70 mmHg. No Action mecobalamin (vitamin B12) 1,000 mcg tablet,disintegrating 1,000 mcg sublingual DAILY Qty: 30 2RF Rx Instructions: place tablet under tongue and allow to dissolve for at least30 secs before swallowing levothyroxine 25 mcg Tablet 25 mcg PO QAM pantoprazole 40 mg tablet,delayed release (DR/EC) 40 mg PO BEDTIME sucralfate 100 mg/mL suspension 10 ml PO BID Qty: 400 2RF ondansetron 4 mg tablet,disintegrating 4 mg PO Q12H Qty: 20 0RF Rx Instructions: Only take one every 12 hours as needed if you have nausea atorvastatin 10 mg tablet 10 mg PO BEDTIME Discharge Orders: Discharge Order (Routine); Ordered 08/29/23 Ordered By: Trav Florentino Activity on Discharge: No heavy lifting Activity Restrictions/Additional Instructions: No tub baths, sex or returning to work until discussed at first post op appointment. No exercise, alcohol, tobacco or illegal drug use. Continue to use incentive spirometer hourly while awake. Walk in home for 5- 10 minutes every 2 hours during the first week. Continue phase 1 diet today and start phase 2 diet tomorrow morning. Follow all instructions in the bariatric handbook and call with any questions. 1. Please call your doctor or come back to the emergency room should any new symptoms arise. 2. You will receive a courtesy call from [facility] 24-48 hours after discharge. 3. Activity: abstain from alcohol, practice limited stair climbing, no bending, no driving, no exercise, no illicit substances, no lifting, no sex, no tub bath, no work. 4. Diet: continue as discussed with bariatric team.. 5. Dressing Change/Wound Care: Do not change or remove surgical dressings unless they are wet or soiled. 6. Call your doctor if: - Your temperature exceeds 101.5 F - You experience excessive pain or swelling - You have an unexpected reaction to medication - You have excessive bleeding - You experience continued vomiting/nausea - Your incision begins to separate - Your incision shows signs of infection such as increased redness, swelling, excessive pain, heat, or drainage (light blood or clear fluid is normal) 7. General instructions: No lifting greater than 5 lbs for 1 week and not more than 20lbs the next 3?weeks. No driving until seen at the office in 5-7 days after surgery. If you do not move your bowels in the next 2 days, please tell?Dr. Florentino. Please walk around your home every hour or two to prevent blood clots from forming in your legs. You do not need to wake from sleeping to walk. Please sleep in a bed or couch to prevent kinking at the hips and knees. Please take your incentive spirometer (your lung labor relations director) home with you and use it for the next few days to prevent pneumonia. You may shower, no hot tubs, baths or swimming pools.?Please follow the post op diet instructions you are?given by Dr Fabiola hughes? and text me daily at 5-6pm for an update.?If you have any issues or concerns or questions please communicate this to him via text.? The Celebrate shakes have all of the bariatric vitamins you need if you consume these shakes. If you are drinking other protein shakes, you will need to purchase the Celebrate multivitamins and calcium that are available in the hospital gift shop on the first floor of the [facility].??Do not take anything without first discussing with Dr Florentino. Please make sure you are consuming at least 40 ounces of fluids per day starting the?day AFTER your discharge from the hospital. Always drink 1-2 ml per minute using the 5ml?syringe. If you drink faster you may experience?bloating,?gas pain, burping, nausea or heartburn. In that case please slow down your pace and use the syringe to?understand better the?proper?pace and volume of drinking. Do not hesitate to contact the office with any questions at . The patient's medical history has been reviewed and they are considered low risk for post op DVT and therefore DVT prophylaxis is not considered necessary. Travel after surgery was reviewed. The patient has not disclosed any travel plans during the first 30 days after surgery and they have been advised that within the first 30 days after surgery any bus, plane, train or car travel over 2 hours in duration is contraindicated due to the possibility of developing blood clots from immobility. Any travel, needs to include periods of ambulation of 10 minutes in duration every 2 hours. The patient was instructed to discuss any plans for travel during this period with their bariatric surgeon.
[2023-08-28] MEDS: ondansetron HCL 4 MG/2 ML VIAL IVPUSH (13:09)
[2023-08-28 13:48] LABS: Hematocrit 35.1 % (37.0-47.0); Hemoglobin 11.9 g/dl (12.0-16.0)
[2023-08-28 14:08] LABS: Anion Gap 15 (12-20); Blood Urea Nitrogen 8 mg/dL (9-16); Calcium 8.7 mg/dL (8.4-10.2); Carbon Dioxide 23 mmol/L (22-29); Chloride 100 mmol/L (96-108); Creatinine Clr Calc Pharmacy 94.7; Estimated Glomerular Filt Rate > 60; Glucose Random 129 mg/dL (60-115); Potassium 3.2 mmol/L (3.3-5.1); Sodium 135 mmol/L (135-145)
[2023-08-28] MEDS: Famotidine/PF 20 MG/2 ML VIAL IVPUSH ×2 (14:38→20:02)
[2023-08-28] MEDS: Acetaminophen 1,000 MG/100 ML PIGGYBACK 16.7 MG IV ×2 (14:38→21:14)
[2023-08-28] MEDS: ceFAZolin Sodium/Dextrose,Iso 2 GM/50 ML PIGGYBACK IV (16:01)
[2023-08-28] MEDS: Potassium Chloride/H20 10 MEQ/100 ML PIGGYBACK 100 MEQ IV ×4 (16:54→20:02)
[2023-08-28] MEDS: 0.9 % Sodium Chloride Flush 3 ML SYRINGE IVFLUSH (20:02)
[2023-08-29] MEDS: Lactated Ringers 1,000 ML 100 ML IVCONT (00:01)
[2023-08-29] MEDS: Acetaminophen 1,000 MG/100 ML PIGGYBACK 16.7 MG IV (03:05)
[2023-08-29 03:29] VITALS: BP 126/68; PULSE 70; RESP 16; TEMP 36.2; O2SAT 98
[2023-08-29 05:57] LABS: MANUAL DIFF FLAG NO
[2023-08-29] MEDS: lisinopriL 10 MG TABLET PO (05:59)
[2023-08-29] MEDS: Levothyroxine Sodium 25 MCG TABLET PO (05:59)
[2023-08-29 06:26] LABS: Anion Gap 14 (12-20); Blood Urea Nitrogen 10 mg/dL (9-16); Calcium 9.1 mg/dL (8.4-10.2); Carbon Dioxide 23 mmol/L (22-29); Chloride 103 mmol/L (96-108); Creatinine Clr Calc Pharmacy 100.6; Estimated Glomerular Filt Rate > 60; Glucose Random 119 mg/dL (60-115); Potassium 3.9 mmol/L (3.3-5.1); Sodium 136 mmol/L (135-145)
[2023-08-29 06:46] VITALS: BP 142/70; PULSE 76; RESP 16; TEMP 36.6; O2SAT 98
[2023-08-29 06:52] LABS: Basophils Percent Auto 0.1 % (0-2); Hematocrit 34.5 % (37.0-47.0); Hemoglobin 11.6 g/dl (12.0-16.0); Imm Gran Abs Auto 0.03 X10*3/uL (0.00-0.03); Imm Gran Pct Auto 0.3 % (0.0-0.4); Lymphocytes Absolute Auto 0.9 X10*3/uL (1.2-4.9); Lymphocytes Percent Auto 8.5 % (20-40); Mean Corpuscular HGB Conc 33.6 g/dl (31.0-35.0); Mean Corpuscular Volume 80.2 fL (80.0-98.0); Mean Platelet Volume 13.8 fL (9.4-12.3); Monocytes Absolute Auto 0.5 X10*3/uL (0.1-1.2); Monocytes Percent Auto 4.6 % (2-11); Neutrophils Absolute Auto 9.4 x10*3/uL (2.0-8.3); Neutrophils Percent Auto 86.5 % (45-73); Platelet Count 150 X10*3/uL (160-400); Red Cell Distribution Width 13.4 % (11.0-16.0); White Blood Count 10.9 X10*3/uL (4.8-10.8)
[2023-08-29 06:53] VITALS: BP 135/78; PULSE 54; RESP 18; TEMP 36.6; O2SAT 95
[2023-08-29] MEDS: Famotidine/PF 20 MG/2 ML VIAL IVPUSH (08:38)
--- NOTE | 2023-08-29 09:08 | MHC.CM.PN ---
pt dcd home no skilled services ordered by
--- NOTE | 2023-08-29 09:49 | HO.POSTANES ---
Post Anesthesia Evaluation Post Anesthesia Evaluation Date of Service: 08/29/23 Vital Signs: Vital Signs Temp Pulse Resp BP Pulse Ox O2 Del Method 08/29/23 06:53 98 F 54 18 135/78 95 Room Air 08/29/23 06:46 98 F 76 16 142/70 H 98 Room Air 08/29/23 03:29 97.1 F 70 16 126/68 98 Room Air 08/28/23 23:39 97 F 66 18 136/72 97 Room Air Anesthesia: General Endotracheal-GETA Mental Status: Awake Pain Control: Satisfactory Nausea/Vomiting: None Hydration: Adequate Anesthesia-Related Issues: No Anes. Related Issues
== END 2023-08-29 10:04 | disposition home or self-care (01) ==
LOC: HO.SSS 13:05 → HO.S3 13:20
PROVIDERS: Physician Assistant; PCP Internal Medicine; Visit Provider Surgery
PROC: (CPT 43845; principal; 2023-08-28 10:10)
DX: E66.01 Morbid (severe) obesity due to excess calories (principal); Z68.35 Body mass index [BMI] 35.0-35.9, adult; K21.9 Gastro-esophageal reflux disease without esophagitis; K76.0 Fatty (change of) liver, not elsewhere classified; K74.00 Hepatic fibrosis, unspecified; K80.20 Calculus of gallbladder without cholecystitis without obstruction; I51.7 Cardiomegaly; I10 Essential (primary) hypertension; E03.9 Hypothyroidism, unspecified; E78.5 Hyperlipidemia, unspecified; M19.90 Unspecified osteoarthritis, unspecified site; Z86.79 Personal history of other diseases of the circulatory system; Z79.899 Other long term (current) drug therapy; Z87.891 Personal history of nicotine dependence
CPT/HCPCS: 43775; 43659; 36415; 80048; 80053; 80061; 82306; 82607; 82728; 83036; 83540; 83970; 84425; 84443; 84590; 84630; 85014; 85018; 85025; 85610; 85730; 86140; 86850; 86900; 86901; 88304; 88307; 88342; A4649; C9088; C9145; J0131; J0690; J1100; J1170; J2250; J2405; J2550; J2795; J3010

== ENCOUNTER → 2023-08-28 06:40 | Outpatient (BNV) | payer OTHER, SELFPAY | PROVIDERS: PCP Internal Medicine; Visit Provider Surgery | DX: E66.9 Obesity, unspecified (principal); Z68.31 Body mass index [BMI] 31.0-31.9, adult | CPT/HCPCS: 43659; 43775; 99024; 99499 ==

== ENCOUNTER 2023-09-04 12:33 | Outpatient (AMB) | payer OTHER, SELFPAY ==
--- NOTE | 2023-09-04 12:45 | MHC.OFFVISWM ---
Intake VS Expanded 09/04/23 12:53 BP 138/79 Blood Pressure Location Rt brachial Blood Pressure Position Sitting Pulse 98 Pulse Source Pulse Oximeter Temp 96.8 F Temperature Source Tympanic Pulse Oximetry 99 Oxygen Delivery Method Room Air Height 5 ft 3 in Weight 178 lb 12.8 oz BMI 31.7 Body Fat % 47.6 Body Fat Mass 85.0 Fat Free Mass 93.6 Visceral Fat Rating 12.0 Body Water % 37.1 Body Water Mass 66.4 Muscle Mass/Score 88.8 Basal Metabolic Rate/Score 1,336 Intake Visit Reasons: (OV) 7 Days PO LSG 08/28/23 Clothes Marker Required: No Allergies No Known Allergies Allergy (Verified 09/04/23 13:00) Medication List - Last Reconciled 09/04/23 by NATE Pena atorvastatin 10 mg PO BEDTIME levothyroxine 25 mcg PO QAM lisinopril-hydrochlorothiazide 10-12.5 mg 1 tab PO DAILY mecobalamin (vitamin B12) 1,000 mcg sublingual DAILY pantoprazole 40 mg PO BEDTIME sucralfate 10 mL PO BID HPI HPI Comments History of Present Illness Details But he patient is a pleasant 58-year-old female who returns to the office today, she is postop day 7, status post sleeve gastrectomy on 08/28/2023. She reports intermittent lightheadedness approximately an hour after taking her blood pressure medication. She reports blood pressures have been 120s to 140s over 70s and she has been taking her full dose of her blood pressure medication. Meal plan includes 3 celebrate 4 in 1 shakes with 1 screw beach in 8 oz of almond milk. She is tolerating 40-60 oz of fluids daily. She does report constipation with last bowel movement approximately 1 week ago. [facility] Medical History (Updated 08/28/23 @ 11:02 by Trav Florentino MD) Pericarditis DJD (degenerative joint disease) Hyperlipidemia Hypothyroidism Hypertension Morbid obesity Surgical History Hx of laparoscopic partial gastrectomy H/O colonoscopy History of salpingo-oophorectomy Hx of section Hx of tonsillectomy Family History Mother Cancer Father Cancer Brother No problems noted. Brother No problems noted. Brother No problems noted. Brother No problems noted. Brother No problems noted. Sister No problems noted. Sister No problems noted. Son No problems noted. Daughter No problems noted. Daughter Hyperthyroidism Social History Household Members: Spouse and Family Housing: House Are you a primary managed care director to a significant other at home: No Do you presently have visiting nurse or other home services: No Alcohol intake: never Patient Tobacco Use Status: Former Tobacco user Quit Date: 2010 Tobacco use type: Cigarette Years Smoked: 20 Physical Exam Vital Signs: Last Vital Signs Temp 96.8 F 09/04/23 12:53 Pulse 98 09/04/23 12:53 BP 138/79 09/04/23 12:53 Pulse Ox 99 09/04/23 12:53 Oxygen Delivery Method Room Air 09/04/23 12:53 BMI result Body Mass Index 31.7 GI Inspection: Yes incision (Clean, dry, intact.) Assessment & Plan Assessment & Plan (1) S/P laparoscopic sleeve gastrectomy: Code(s): Z98.84 - Bariatric surgery status Plan: POD 7 s/p LSG on 08/28/[address] Florentino Weight loss prior to surgery was 40.5 pounds or 17.6% TBWL. Original weight on 05/14/2023 was 229 pounds and op weight was 188.5 pounds. Be sure to text Dr Florentino exactly 1 week after surgery your weight from your home scale so he can adjust your meal plan. Continue meal plan until f/u w [facility] in 2 weeks May shower, no submersion in bath for another week Continue abdominal binder with activity and exercise for the next 2 weeks. Exercise prior to surgery was walking and stationary bike, may resume No abdominal exercises for 6 weeks post operatively Will be emailed link to post op video for review Reminded of the pace of drinking, 2 mL per minute, 1 oz/15 min. She will check her blood pressure before and after her medication. She was instructed to take half dose of her lisinopril/hydrochlorothiazide with the intention of likely eliminating the hydrochlorothiazide component and prescribing a new 5 mg lisinopril dose. Add senna 2 tabs at HS and p.r.n. Dulcolax. Medications: New sennosides (senna) 17.2 mg (2 x 8.6 mg) PO BEDTIME PRN 60 tabs 0RF constipation bisacodyl (Dulcolax (bisacodyl)) 10 mg AL DAILY PRN 12 ea 0RF constipation Coding Level of Care Code Global (49936) Diagnoses S/P laparoscopic sleeve gastrectomy Z98.84
[2023-09-04 12:53] VITALS: BP 138/79; PULSE 98; TEMP 36; O2SAT 99; BMI 31.7
== END 2023-09-04 13:36 | disposition home or self-care (01) ==
PROVIDERS: Visit Provider Physician Assistant Surgical
DX: E66.9 Obesity, unspecified (principal); Z68.31 Body mass index [BMI] 31.0-31.9, adult; Z90.3 Acquired absence of stomach [part of]; Z98.84 Bariatric surgery status
CPT/HCPCS: 99024

== ENCOUNTER → 2023-09-04 12:33 | Outpatient (BNVA) | payer OTHER, SELFPAY | PROVIDERS: Visit Provider Physician Assistant Surgical ==

== ENCOUNTER 2023-09-21 11:45 | Outpatient (AMB) | payer OTHER, SELFPAY ==
--- NOTE | 2023-09-21 11:49 | MHC.OFFVISWM ---
Intake VS Expanded 09/21/23 12:03 BP 155/78 H Blood Pressure Location Rt brachial Blood Pressure Position Sitting Pulse 84 Pulse Source Pulse Oximeter Temp 96.2 F L Temperature Source Temporal Artery Scan Pulse Oximetry 98 Oxygen Delivery Method Room Air Height 5 ft 3 in Weight 174 lb 6.4 oz BMI 30.9 Body Fat % 42.2 Body Fat Mass 71.2 Fat Free Mass 100.8 Visceral Fat Rating 11.0 Body Water % 40.8 Body Water Mass 71.2 Muscle Mass/Score 95.6 Basal Metabolic Rate/Score 1,399 Intake Visit Reasons: (OV) PO LSG 08/28/23 Mobility Developer Required: No Allergies No Known Allergies Allergy (Verified 09/21/23 11:53) Medication List - Last Reconciled 09/21/23 by NATE Pena atorvastatin 10 mg PO BEDTIME levothyroxine 25 mcg PO QAM lisinopril-hydrochlorothiazide 10-12.5 mg 1 tab PO DAILY mecobalamin (vitamin B12) 1,000 mcg sublingual DAILY pantoprazole 40 mg PO BEDTIME sucralfate 10 mL PO BID HPI HPI Comments History of Present Illness Details This?a?58?yo female who is s/p LSG without hiatal hernia repair on?08/28/23. Presents for 3 week post op visit. Weight today is 174.4 pounds, with a BMI of 30.9. There has been a 54.6 pound weight loss,(initial weight 229 pounds) since starting the program on 05/14/23 reflecting a 23% total body weight loss and a weight loss of 14.1 pounds since surgery (operative weight 188.5 pounds) reflecting a 7.4% TBWL since surgery. No complaints of nausea, emesis, abdominal pain or reflux. Reports infrequent but normal bowel movements every 4 days days and uses stool softeners regularly. She had significant difficulty with constipation that is now improved with use of MiraLax. She has additionally going to add 1 fiber gummy daily. Blood pressure has been exceptionally well controlled at home off all medications for the last 2 weeks with blood pressure readings in the 1 teens/70s Since last being seen she has seen endocrinology at [facility] in [place], Dr Julian, dx with Hashimotos thyroiditis and levothryoxine was increased to 50 mcg 2 days per week and 25 mcg 5 days per week. F/U 03/14/24. Present meal plan includes: Celebrate 4 in 1 1 scoop w 8 oz almond milk 10-12 2 scoops w 8 oz almond milk 2-4 zone perfect bar 5-8 Drinking 50 oz daily ? Exercise routine includes: bike daily 330 calories walking 4 days per week, 2 miles 170 [address] [facility] Medical History (Updated 09/06/23 @ 00:02 by Kaila Tran) Cholelithiasis BMI 31.0-31.9,adult Pericarditis DJD (degenerative joint disease) Hyperlipidemia Hypothyroidism Hypertension Morbid obesity Surgical History Hx of laparoscopic partial gastrectomy H/O colonoscopy History of salpingo-oophorectomy Hx of section Hx of tonsillectomy Family History Mother Cancer Father Cancer Brother No problems noted. Brother No problems noted. Brother No problems noted. Brother No problems noted. Brother No problems noted. Sister No problems noted. Sister No problems noted. Son No problems noted. Daughter No problems noted. Daughter Hyperthyroidism Social History Household Members: Spouse and Family Housing: House Are you a primary pediatric critical care nurse to a significant other at home: No Do you presently have visiting nurse or other home services: No Alcohol intake: never Patient Tobacco Use Status: Former Tobacco user Quit Date: 2010 Tobacco use type: Cigarette Years Smoked: 20 Physical Exam GI Inspection: Yes incision (Healing well) Assessment & Plan Assessment & Plan (1) S/P laparoscopic sleeve gastrectomy: Code(s): Z98.84 - Bariatric surgery status Plan: She will continue with her meal plan as outlined by Dr. Florentino. Continue exercise. Return to clinic in 3 weeks. Coding Level of Care Code Global (10345) Diagnoses S/P laparoscopic sleeve gastrectomy Z98.84
[2023-09-21 12:03] VITALS: BP 155/78; PULSE 84; TEMP 35.7; O2SAT 98; BMI 30.9
== END 2023-09-21 12:37 | disposition home or self-care (01) ==
PROVIDERS: Visit Provider Physician Assistant Surgical
DX: E66.9 Obesity, unspecified (principal); Z68.30 Body mass index [BMI] 30.0-30.9, adult; Z90.3 Acquired absence of stomach [part of]; Z98.84 Bariatric surgery status
CPT/HCPCS: 99024

== ENCOUNTER → 2023-09-21 11:45 | Outpatient (BNVA) | payer OTHER, SELFPAY | PROVIDERS: Visit Provider Physician Assistant Surgical ==

== ENCOUNTER 2023-10-22 08:20 | Outpatient (AMB) | payer OTHER, SELFPAY ==
--- NOTE | 2023-10-22 08:28 | A.OFFVIS_ITS ---
Intake VS Expanded 10/22/23 08:34 BP 163/62 H Blood Pressure Location Rt brachial Blood Pressure Position Sitting Pulse 74 Pulse Source Pulse Oximeter Temp 97.0 F Temperature Source Temporal Artery Scan Pulse Oximetry 99 Oxygen Delivery Method Room Air Height 5 ft 3 in Weight 166 lb 6.4 oz BMI 29.5 Body Fat % 36.2 Body Fat Mass 60.2 Fat Free Mass 106.0 Visceral Fat Rating 9.0 Body Water % 45.27 Body Water Mass 75.2 Muscle Mass/Score 100.8 Basal Metabolic Rate/Score 1,439 Intake Visit Reasons: (OV) PO LSG 08/28/23 Forensic Accountant Required: No Allergies No Known Allergies Allergy (Verified 10/22/23 08:32) Medication List - Last Reconciled 10/22/23 by NATE Pena levothyroxine 25 mcg PO QAM lisinopril-hydrochlorothiazide 10-12.5 mg 1 tab PO DAILY pantoprazole 40 mg PO BEDTIME sucralfate 10 mL PO BID HPI HPI Comments History of Present Illness Details This?a?58?yo female who is s/p LSG without hiatal hernia repair on?08/28/23. Presents for 2 months post op visit. Weight today is 166.4 pounds, with a BMI of 29.5. There has been a 62.6 pound weight loss,(initial weight 229 pounds) since starting the program on 05/14/23 reflecting a 27.3% total body weight loss and a weight loss of 22.1 pounds since surgery (operative weight 188.5 pounds) reflecting a 11.7% TBWL since surgery. No complaints of nausea, emesis, abdominal pain or reflux. Reports infrequent but normal bowel movements every 4 days days and uses stool softeners regularly. She had significant difficulty with constipation that is now improved with use of 1/2 cap MiraLax. She states that she did hit a plateau although with communication with Dr. Hicks, she has increased her stationary bike calorie burn and has begun losing weight again. Blood pressure has been exceptionally well controlled at home off all medications since surgery with blood pressure readings in the 120s/70s. She has noticed an isolated, non-painful, intermittent left ankle swelling. She also notices a LUQ discomfort , not a pain but a discomfort since surgery. No radiation of the pain and not positional. Improving overall. Since last being seen she has seen endocrinology at [facility] [address] in [place], Dr Julian, dx with Hashimotos thyroiditis and levothryoxine was increased to 50 mcg 2 days per week and 25 mcg 5 days per week. F/U 03/14/24. States rarely eats entire bar at night but does have 1/2 Taking a celebrate MVI Present meal plan includes: Celebrate 4 in 1 1/2 scoop w 8 oz almond milk 10-12 zp bar 1 scoop w 8 oz almond milk 2-4 4 forks protein and 4 forks cooked veg zp bar Drinking 44-50 oz daily ? Exercise routine includes: bike daily 500 calories, split in two sessions PFSH Medical History Cholelithiasis BMI 31.0-31.9,adult Pericarditis DJD (degenerative joint disease) Hyperlipidemia Hypothyroidism Hypertension Morbid obesity Surgical History Hx of laparoscopic partial gastrectomy H/O colonoscopy History of salpingo-oophorectomy Hx of section Hx of tonsillectomy Family History Mother Cancer Father Cancer Brother No problems noted. Brother No problems noted. Brother No problems noted. Brother No problems noted. Brother No problems noted. Sister No problems noted. Sister No problems noted. Son No problems noted. Daughter No problems noted. Daughter Hyperthyroidism Household Members: Spouse and Family Housing: House Are you a primary child care supervisor to a significant other at home: No Do you presently have visiting nurse or other home services: No Alcohol intake: never Patient Tobacco Use Status: Former Tobacco user Quit Date: 2010 Tobacco use type: Cigarette Years Smoked: 20 Review of Systems Const All systems reviewed & are unremarkable except as noted in HPI and below Physical Exam Const General: healthy appearing and no acute distress Resp Effort & Inspection: normal respiratory effort Auscultation: clear to auscultation bilaterally Cardio Rate: regular rate Rhythm: regular rhythm GI Auscultation: normal bowel sounds Extrem General: Yes normal to inspection Right upper extremity: edema (Trace left pedal and ankle edema) Assessment & Plan Assessment & Plan (1) S/P laparoscopic sleeve gastrectomy: Code(s): Z98.84 - Bariatric surgery status Plan: As she is only taking half zone perfect bar at night, will increase the morning shake to 1 scoop. Meal plan: Celebrate 4 in 1, 1 scoop Zone perfect bar Another shake Meal, 4 forks protein, 4 forks vegetables Half bar Increase fluids to 64 oz total per day. Return to clinic for a 3 month postoperative follow-up at the beginning of November with Dr. Florentino by telephone and then return to me as I will be on vacation at that time. (2) Hypertension: Code(s): I10 - Essential (primary) hypertension Plan: She will continue to check her blood pressure, if her blood pressure remains greater than 125 systolic Mala or 75 diastolically, she will take 1/2 tablet of her lisinopril/hydrochlorothiazide 10/12.5 mg and recheck her blood pressure in the evening. Should she be symptomatic at all she will no longer take her blood pressure medication. She will continue to text numbers. Coding Level of Care Code Global (08007) Diagnoses S/P laparoscopic sleeve gastrectomy Z98.84 Hypertension I10
[2023-10-22 08:34] VITALS: BP 163/62; PULSE 74; TEMP 36.1; O2SAT 99; BMI 29.5
== END 2023-10-22 09:13 | disposition home or self-care (01) ==
PROVIDERS: Visit Provider Physician Assistant Surgical
DX: E66.9 Obesity, unspecified (principal); Z68.29 Body mass index [BMI] 29.0-29.9, adult; Z90.3 Acquired absence of stomach [part of]; Z98.84 Bariatric surgery status; I10 Essential (primary) hypertension
CPT/HCPCS: 99024

== ENCOUNTER → 2023-10-22 08:20 | Outpatient (BNVA) | payer OTHER, SELFPAY | PROVIDERS: Visit Provider Physician Assistant Surgical ==

== ENCOUNTER 2023-12-07 12:44 | Outpatient (AMB) | payer OTHER, SELFPAY ==
--- NOTE | 2023-12-07 13:00 | MHC.OFFVISWM ---
Intake VS Expanded 12/07/23 13:09 BP 138/74 Blood Pressure Location Rt brachial Blood Pressure Position Sitting Pulse 77 Pulse Source Pulse Oximeter Temp 97.1 F Temperature Source Tympanic Pulse Oximetry 99 Oxygen Delivery Method Room Air Oxygen Flow Rate 77 Height 5 ft 3 in Weight 146 lb BMI 25.9 Body Fat % 33.1 Body Fat Mass 48.2 Fat Free Mass 97.6 Visceral Fat Rating 8.0 Body Water % 47.3 Body Water Mass 69.0 Muscle Mass/Score 92.6 Basal Metabolic Rate/Score 1,320 Intake Visit Reasons: (OV) PO LSG 08/28/23 *LUQ Discomfort* Allergies No Known Allergies Allergy (Verified 12/07/23 13:01) HPI HPI Comments History of Present Illness Details 58-year-old female returns to the office in follow-up. She is status post sleeve gastrectomy performed on 08/28/2023. Weight today is 146 with a BMI of 25.9.There has been a 83 pound weight loss,(initial weight 229 pounds) since starting the program on 05/14/23 reflecting a 36.2% total body weight loss and a weight loss of 42.5 pounds since surgery (operative weight 188.5 pounds) reflecting a 22.5% TBWL since surgery. No complaints of nausea, emesis, or reflux. Reports infrequent but normal bowel movements every 4 days days and uses stool softeners regularly. She had significant difficulty with constipation that is now improved with use of 1/2 cap MiraLax. She has been having intermittent left upper quadrant abdominal pain, more specifically mid axillary pain. This occurs on a daily basis and has increased in frequency. She describes it as a 4/10 aching pain without significant radiation although does notice some radiation to the midline but not frequently. The pain is worse with sitting on the sofa or laying on her left side, improved with time. She has not taken any Tylenol for this. She denies any pain with standing up or with bicycling. She has been following the same meal plan and has no change in bowel or bladder habits. She has no urinary symptoms. Of note, she does have a history of lipomas. States rarely eats entire bar at night but does have 1/2 Taking a celebrate MVI Present meal plan includes: Celebrate 4 in 1, 1 scoop Zone perfect bar Another shake Meal, 4 forks protein, 4 forks vegetables Half bar Drinking 44-50 oz daily ? Exercise routine includes: bike daily 500 calories, split in two sessions PFS Medical History Cholelithiasis BMI 31.0-31.9,adult Pericarditis DJD (degenerative joint disease) Hyperlipidemia Hypothyroidism Hypertension Morbid obesity Surgical History Hx of laparoscopic partial gastrectomy H/O colonoscopy History of salpingo-oophorectomy Hx of section Hx of tonsillectomy Family History Mother Cancer Father Cancer Brother No problems noted. Brother No problems noted. Brother No problems noted. Brother No problems noted. Brother No problems noted. Sister No problems noted. Sister No problems noted. Son No problems noted. Daughter No problems noted. Daughter Hyperthyroidism Social History Household Members: Spouse and Family Housing: House Are you a primary director of healthcare systems to a significant other at home: No Do you presently have visiting nurse or other home services: No Alcohol intake: never Patient Tobacco Use Status: Former Tobacco user Quit Date: 2010 Tobacco use type: Cigarette Years Smoked: 20 Physical Exam Vital Signs: Last Vital Signs Temp 97.1 F 12/07/23 13:09 Pulse 77 12/07/23 13:09 BP 138/74 12/07/23 13:09 Pulse Ox 99 12/07/23 13:09 Oxygen Delivery Method Room Air 12/07/23 13:09 Oxygen Flow Rate 77 12/07/23 13:09 BMI result Body Mass Index 25.9 Back/Spine/Pelvis Other: Nontender spine, paraspinal muscles. No pain with AP or lateral thoracic compression. Skin Other: Approximately 1.5 cm nodule appreciated in the left mid axillary line along the most inferior rib. This is tender to palpation, somewhat rubbery in texture. Assessment & Plan Assessment & Plan (1) LUQ abdominal pain: Code(s): R10.12 - Left upper quadrant pain Plan: Left upper quadrant abdominal pain, more consistently reproducible along the left mid axillary line. Differential diagnosis includes nodule, lipoma, much less likely sarcoma. We will order an AP and lateral chest x-ray Orders: Orders US abdomen limited Today R10.12 - Left upper quadrant pain XR chest 2V Today R10.12 - Left upper quadrant pain Coding Level of Care Code Est Pt Level 3 (06424) Diagnoses LUQ abdominal pain R10.12
[2023-12-07 13:09] VITALS: BP 138/74; PULSE 77; TEMP 36.2; O2SAT 99; BMI 25.9
== END 2023-12-07 14:39 | disposition home or self-care (01) ==
PROVIDERS: Visit Provider Physician Assistant Surgical
DX: R10.12 Left upper quadrant pain (principal)
CPT/HCPCS: 99213

== ENCOUNTER → 2023-12-07 12:44 | Outpatient (BNVA) | payer OTHER, SELFPAY | PROVIDERS: Visit Provider Physician Assistant Surgical ==

== ENCOUNTER 2023-12-18 09:23 | Outpatient (REF) | payer OTHER, SELFPAY ==
--- NOTE | ~2023-12-18 | US_ITS ---
EXAMINATION: US ABDOMEN LIMITED CLINICAL INFORMATION: Left lumbar/upper quadrant pain. Palpable abnormality left lateral side. COMPARISON: None available. TECHNIQUE: Real-time imaging of the left mid/abdomen and soft tissues left lower back in the areas indicated by patient. FINDINGS: Spleen measures 9.18 cm and is unremarkable in appearance. Left kidney measures 10.9 cm. No hydronephrosis, renal calculi or space-occupying lesion seen. No free fluid identified. Soft tissues of the left lower back were scanned and revealed no cystic or solid lesion, fluid, fluid collections or lymphadenopathy. US/US abdomen limited IMPRESSION: Unremarkable ultrasound for further evaluation of left upper quadrant/lateral abdominal pain and possible left mid axillary palpable abnormality.
--- NOTE | ~2023-12-18 | XR_ITS ---
EXAMINATION: XR CHEST CLINICAL INFORMATION: Left upper quadrant pain COMPARISON: Chest x-ray May 21, 2023 TECHNIQUE: 2 views of the chest were obtained. FINDINGS: Cardiac silhouette is normal in size. The lungs are well aerated. There is no lobar consolidation. No pleural effusion or pneumothorax. No acute osseous abnormality. Numerous surgical clips project over the stomach. XR/XR chest 2V IMPRESSION: No acute pulmonary pathology.
== END 2023-12-18 09:24 | disposition home or self-care (01) ==
LOC: HO.HMGCX 09:23
PROVIDERS: PCP Internal Medicine; Visit Provider Physician Assistant Surgical
DX: R10.12 Left upper quadrant pain (principal)
CPT/HCPCS: 71046; 76705

== ENCOUNTER 2023-12-25 09:16 | Outpatient (AMB) | payer OTHER, SELFPAY ==
--- NOTE | 2023-12-25 09:22 | MHC.OFFVISWM ---
Intake VS Expanded 12/25/23 09:29 BP 182/77 H Blood Pressure Location Rt brachial Blood Pressure Position Sitting Pulse 64 Pulse Source Pulse Oximeter Temp 97.8 F Temperature Source Temporal Artery Scan Pulse Oximetry 100 Oxygen Delivery Method Room Air Height 5 ft 3 in Weight 140 lb 9.6 oz BMI 24.9 Body Fat % 30.1 Body Fat Mass 42.4 Fat Free Mass 98.2 Visceral Fat Rating 7.0 Body Water % 49.3 Body Water Mass 69.2 Muscle Mass/Score 93.0 Basal Metabolic Rate/Score 1,315 Intake Visit Reasons: (OV) PO LSG 08/28/23 Film Process Operator Required: No Allergies No Known Allergies Allergy (Verified 12/25/23 09:24) Medication List - Last Reconciled 12/25/23 by NATE Pena [celebrate MVI PO .qd] levothyroxine 25 mcg PO QAM lisinopril-hydrochlorothiazide 10-12.5 mg 1 tab PO DAILY HPI HPI Comments History of Present Illness Details 58-year-old female returns to the office in follow-up. She is 3.5 months status post sleeve gastrectomy performed on 08/28/2023. Weight today is 140.6 with a BMI of 24.9.There has been a 88.4 pound weight loss,(initial weight 229 pounds) since starting the program on 05/14/23 reflecting a 38.6% total body weight loss and a weight loss of 47.9 pounds since surgery (operative weight 188.5 pounds) reflecting a 25.4% TBWL since surgery. No complaints of nausea, emesis, or reflux. Reports infrequent but normal bowel movements every 4 days days and uses stool softeners regularly. She had significant difficulty with constipation that is now improved with use of 1/2 cap MiraLax. She has been having intermittent left upper quadrant abdominal pain, more specifically mid axillary pain. This occurs on a daily basis and has increased in frequency. She describes it as a 4/10 aching pain without significant radiation although does notice some radiation to the midline but not frequently. The pain is worse with sitting on the sofa or laying on her left side, improved with time. She has not taken any Tylenol for this. She denies any pain with standing up or with bicycling. She has been following the same meal plan and has no change in bowel or bladder habits. She has no urinary symptoms. Of note, she does have a history of lipomas. Chest x-ray and ultrasound were done 12/18/2023 and negative for acute pathology or soft tissue mass or fluid collection. She states that she continues to have discomfort in the left upper quadrant/rib, mid axillary area. Unrelated to bowel movements, urination or position. There is no specific pattern to this discomfort and happens multiple times per day. She wishes to have further diagnostic imaging by way of a CT scan to evaluate intestines and further evaluation of possible soft tissue mass. She does state that she has had difficulty with constipation throughout her life due to thyroid disease, but is currently moving her bowels daily with the use of MiraLax. Taking a celebrate MVI Present meal plan includes: Celebrate 4 in 1, 1 scoop Zone perfect bar Meal, 4 forks protein, 4 forks vegetables another meal Drinking 60 oz daily ? Exercise routine includes: bike daily 500 calories, split in two sessions 6 days per week. [facility] Medical History Cholelithiasis BMI 31.0-31.9,adult Pericarditis DJD (degenerative joint disease) Hyperlipidemia Hypothyroidism Hypertension Morbid obesity Surgical History Hx of laparoscopic partial gastrectomy H/O colonoscopy History of salpingo-oophorectomy Hx of section Hx of tonsillectomy Family History Mother Cancer Father Cancer Brother No problems noted. Brother No problems noted. Brother No problems noted. Brother No problems noted. Brother No problems noted. Sister No problems noted. Sister No problems noted. Son No problems noted. Daughter No problems noted. Daughter Hyperthyroidism Social History Household Members: Spouse and Family Housing: House Are you a primary senior caregiver to a significant other at home: No Do you presently have visiting nurse or other home services: No Alcohol intake: never Patient Tobacco Use Status: Former Tobacco user Quit Date: 2010 Tobacco use type: Cigarette Years Smoked: 20 Review of Systems Const All systems reviewed & are unremarkable except as noted in HPI and below Physical Exam Const General: healthy appearing and no acute distress Resp Effort & Inspection: normal respiratory effort Auscultation: clear to auscultation bilaterally Cardio Rate: regular rate Rhythm: regular rhythm GI Auscultation: normal bowel sounds Skin General skin exam: no rashes or lesions noted Extrem General: Yes normal to inspection Assessment & Plan Assessment & Plan (1) S/P laparoscopic sleeve gastrectomy: Code(s): Z98.84 - Bariatric surgery status Plan: Patient wishes to continue the use of celebrate 4 in 1 protein shake as well as zone perfect protein bar. She continues a bariatric multivitamin daily. Shake 1 scoop Bar Meal 5 forks of protein and 6 forks of vegetables x 2 May have half a cup of fresh berries or an apple or kiwi. Continue exercise using her stationary bike for 500 calories 4 times a week and increase weight training for muscle tone. (2) LUQ abdominal pain: Code(s): R10.12 - Left upper quadrant pain Plan: CT with oral and IV contrast rule out visceral involvement or soft tissue abnormality not seen on ultrasound. Orders: Orders CT abdomen pelvis w IV con Today R10.12 - Left upper quadrant pain, Z98.84 - Bariatric surgery status Coding Level of Care Code Est Pt Level 4 (00775) Diagnoses S/P laparoscopic sleeve gastrectomy Z98.84 LUQ abdominal pain R10.12 Time Spent (min) 40
[2023-12-25 09:29] VITALS: BP 182/77; PULSE 64; TEMP 36.6; O2SAT 100; BMI 24.9
== END 2023-12-25 09:59 | disposition home or self-care (01) ==
PROVIDERS: PCP Internal Medicine; Visit Provider Physician Assistant Surgical
DX: R10.12 Left upper quadrant pain (principal); Z90.3 Acquired absence of stomach [part of]; Z98.84 Bariatric surgery status
CPT/HCPCS: 99214

== ENCOUNTER → 2023-12-25 09:16 | Outpatient (BNVA) | payer OTHER, SELFPAY | PROVIDERS: Visit Provider Physician Assistant Surgical ==

== ENCOUNTER 2024-01-15 08:35 | Outpatient (REF) | payer OTHER, SELFPAY ==
[2024-01-15 09:35] LABS: Anion Gap 12 (12-20); Blood Urea Nitrogen 16 mg/dL (9-16); Calcium 9.3 mg/dL (8.4-10.2); Carbon Dioxide 31 mmol/L (22-29); Chloride 102 mmol/L (96-108); Estimated Glomerular Filt Rate > 60; Glucose Random 100 mg/dL (60-115); Potassium 3.9 mmol/L (3.3-5.1); Sodium 141 mmol/L (135-145)
== END 2024-01-15 08:36 | disposition home or self-care (01) ==
LOC: HO.LAB 08:35
PROVIDERS: Visit Provider Physician Assistant Surgical
DX: Z01.818 Encounter for other preprocedural examination (principal)
CPT/HCPCS: 36415; 80048

== ENCOUNTER 2024-01-30 13:09 | Outpatient (REF) | payer OTHER, SELFPAY ==
--- NOTE | ~2024-01-30 | CT_ITS ---
EXAMINATION: CT ABDOMEN AND PELVIS WITH CONTRAST CLINICAL INFORMATION: Left upper quadrant pain. COMPARISON: None available. TECHNIQUE: Multidetector volumetric images were obtained from the superior aspect of the liver through the pubic symphysis following administration 85 mL of Omnipaque 350 intravenous contrast. Sagittal and coronal reformatted images were obtained on the technologist's workstation. Oral contrast: No This CT examination was performed using dose optimization techniques as appropriate, variously including the following: *Automated exposure control *Adjustment of mA and/or kV according to patient size (this includes techniques or standardized protocols for targeted exams where dose is matched to indication/reason for exam; i.e. extremities or head) *Use of iterative reconstruction technique DLP: 300 mGy-cm FINDINGS: LUNG BASES: There is a 4 mm subpleural left lower lobe pulmonary nodule (4:14). Some small perifissural lymph nodes are noted in the left lower lobe along the major fissure (4:22, 28 and 58), the largest measuring 3 mm (4:58). No pleural effusions or infiltrates. LIVER, GALLBLADDER, AND BILIARY TREE: The liver is enlarged at 18.2 cm in cephalocaudad dimension with decreased attenuation suggesting hepatic steatosis. No focal hepatic lesion or biliary ductal dilatation is present. The gallbladder contains 2 calcified gallstones, the largest measuring 1.3 cm without pericholecystic inflammatory changes. PANCREAS: Unremarkable. SPLEEN: Unremarkable. ADRENAL GLANDS: Unremarkable. KIDNEYS AND URETERS: The kidneys are normal in size, shape, and attenuation. No hydronephrosis, hydroureter, or calculi seen. No perinephric stranding. BLADDER: Unremarkable. GASTROINTESTINAL TRACT: Status post gastric surgery with presumed gastric sleeve. Moderate stool burden present in the colon. The small and large bowel are otherwise unremarkable. The appendix is not identified with certainty but there is certainly no evidence of appendicitis. ABDOMINAL WALL: No significant hernia is appreciated. LYMPH NODES: Normal. VASCULAR: There is a rim calcified 1.2 cm splenic artery aneurysm in the splenic martin. Vasculature otherwise unremarkable. PELVIC VISCERA: The uterus and adnexa are unremarkable. OSSEOUS STRUCTURES: There is a mild scoliosis and degenerative changes are present in the spine most marked at L4-L5. No bony destructive lesions. CT/CT abdomen pelvis w IV con IMPRESSION: 1. A cause for the patient's left upper quadrant pain has not been found. 2. Enlarged fatty liver. 3. Cholelithiasis without cholecystitis. 4. Status post gastric sleeve. 5. A 1.2 cm rim calcified splenic artery aneurysm. A follow-up CT scan in one year should be considered. 6. A 4 mm left lower lobe pulmonary nodule. Fleischner guidelines were followed.
[2024-01-30] MEDS: iohexoL 350 MG/ML 100 ML INFUS..BTL IV (15:31)
[2024-01-30] MEDS: Barium Sulfate Oral (Berry) 450 ML ORAL.SUSP 900 ML PO (15:32)
== END 2024-01-30 13:10 | disposition home or self-care (01) ==
LOC: HO.CT 13:09
PROVIDERS: PCP Internal Medicine; Visit Provider Physician Assistant Surgical
DX: R10.12 Left upper quadrant pain (principal); Z98.84 Bariatric surgery status
CPT/HCPCS: 74177; Q9967

== ENCOUNTER 2024-02-05 09:29 | Outpatient (AMB) | payer OTHER, SELFPAY ==
[2024-02-05 08:41] VITALS: BMI 23.9
--- NOTE | 2024-02-05 08:41 | A.OFFVIS_ITS ---
Intake VS Expanded 02/05/24 08:41 Height 5 ft 3 in Weight 135 lb 3.2 oz BMI 23.9 Body Fat % 29.2 Body Fat Mass 39.4 Fat Free Mass 95.6 Visceral Fat Rating 7 Body Water % 48.6 Body Water Mass 65.6 Muscle Mass/Score 90 Basal Metabolic Rate/Score 1,295 Intake Visit Reasons: (TV) PO LSG 08/28/23 Residential Subcontractor Required: No Allergies No Known Allergies Allergy (Verified 12/25/23 09:24) Medication List - Last Reconciled 02/05/24 by NATE Pena [celebrate MVI PO .qd] levothyroxine 25 mcg PO QAM lisinopril-hydrochlorothiazide 10-12.5 mg 1 tab PO DAILY HPI HPI Comments History of Present Illness Details 58-year-old female returns to the office in follow-up. She is 5 months status post sleeve gastrectomy performed on 08/28/2023. Weight today is 135.2 with a BMI of 23.9.There has been a 93.8 pound weight loss,(initial weight 229 pounds) since starting the program on 05/14/23 reflecting a 40.9% total body weight loss and a weight loss of 53.3 pounds since surgery (operative weight 188.5 pounds) reflecting a 28.2% TBWL since surgery. No complaints of nausea, emesis, or reflux. Reports infrequent but normal bowel movements every 4 days days and uses stool softeners regularly. She had significant difficulty with constipation that is now improved with use of 1/2 cap MiraLax. She has been having intermittent left upper quadrant abdominal pain, more specifically mid axillary pain. This occurs on a daily basis and has increased in frequency. She describes it as a 4/10 aching pain without significant radiation although does notice some radiation to the midline but not frequently. The pain is worse with sitting on the sofa or laying on her left side, improved with time. She has not taken any Tylenol for this. She denies any pain with standing up or with bicycling. She has been following the same meal plan and has no change in bowel or bladder habits. She has no urinary symptoms. Of note, she does have a history of lipomas. Chest x-ray and ultrasound were done 12/18/2023 and negative for acute pathology or soft tissue mass or fluid collection. She states that she continues to have discomfort in the left upper quadrant/rib, mid axillary area. Unrelated to bowel movements, urination or position. There is no specific pattern to this discomfort and happens multiple times per day. She wishes to have further diagnostic imaging by way of a CT scan to evaluate intestines and further evaluation of possible soft tissue mass. She does state that she has had difficulty with constipation throughout her life due to thyroid disease, but is currently moving her bowels daily with the use of MiraLax. She continues to check her blood pressure at home. Typically 1 teens 120s over 70s. She takes 1/2 tablet daily of her combination lisinopril hyd rochlorothiazide pill CT scan 01/30/24 done: 1. A cause for the patient's left upper quadrant pain has not been found. 2. Enlarged fatty liver. 3. Cholelithiasis without cholecystitis. 4. Status post gastric sleeve. 5. A 1.2 cm rim calcified splenic artery aneurysm. A follow-up CT scan in one year should be considered. 6. A 4 mm left lower lobe pulmonary nodu le. Taking a celebrate MVI Present meal plan includes: Celebrate 4 in 1, 1/2 scoop in 8 oz almond milk, 7-9 am 2 ZP bars 10-12 pm, 2-4 Meal 5 forks of protein and 6 forks of vegetables x 2, 1 pm and 5 pm May have half a cup of fresh berries or an apple or kiwi. Drinking 60 oz daily ? Exercise routine includes: bike 4 x per wee 500 calories, other days walk outside, HR 140, calories 300-500 but does extra biking on walk days to get to 500 calores burned. [facility] Medical History Cholelithiasis BMI 31.0-31.9,adult Pericarditis DJD (degenerative joint disease) Hyperlipidemia Hypothyroidism Hypertension Morbid obesity Surgical History Hx of laparoscopic partial gastrectomy H/O colonoscopy History of salpingo-oophorectomy Hx of section Hx of tonsillectomy Family History Mother Cancer Father Cancer Brother No problems noted. Brother No problems noted. Brother No problems noted. Brother No problems noted. Brother No problems noted. Sister No problems noted. Sister No problems noted. Son No problems noted. Daughter No problems noted. Daughter Hyperthyroidism Social History Household Members: Spouse and Family Housing: House Are you a primary child care center assistant director to a significant other at home: No Do you presently have visiting nurse or other home services: No Alcohol intake: never Patient Tobacco Use Status: Former Tobacco user Quit Date: 2010 Tobacco use type: Cigarette Years Smoked: 20 Assessment & Plan Assessment & Plan (1) S/P laparoscopic sleeve gastrectomy: Code(s): Z98.84 - Bariatric surgery status Plan: She wishes to continue her current meal plan that was adjusted slightly by Dr. Hicks. She continues to exercise vigorously and is doing very well. Overall she is extremely satisfied with her results. We will have her return to the office in person in approximately 1 month for six-month postop visit and I will order labs now that she can obtain prior to her next visit so we may discuss it at her visit in February. (2) LUQ abdominal pain: Code(s): R10.12 - Left upper quadrant pain Plan: No definitive etiology although may be stool burden. Chest x-ray, abdominal ultrasound, CT scan showed no significant underlying pathology except stool burden. There was an incidental splenic artery aneurysm noted for which repeat CT scan in 1 year was recommended. She states that she has been discussing with her sister who is a nurse practitioner who suggested having a GI consult. This is reasonable to do given stool burden. Additionally discussed that it may be related to her intake of the zone perfect bars however she wishes to continue this meal plan. She will follow up with GI. If no underlying etiology determined, she states that she will follow up with her primary care physician. Additionally, she may ask Dr. Hicks to review her case for any additional thoughts he may have. Orders: Orders Insulin Today E03.9 - Hypothyroidism, unspecified, E53.8 - Deficiency of other specified B group vitamins, E78.5 - Hyperlipidemia, unspecified, I10 - Essential (primary) hypertension, K74.00 - Hepatic fibrosis, unspecified, Z98.84 - Bariatric surgery status Lipid Panel Today E03.9 - Hypothyroidism, unspecified, E53.8 - Deficiency of o ther specified B group vitamins, E78.5 - Hyperlipidemia, unspecified, I10 - Essential (primary) hypertension, K74.00 - Hepatic fibrosis, unspecified, Z98.84 - Bariatric surgery status Vitamin B12 and Folate Today E03.9 - Hypothyroidism, unspecified, E53.8 - Deficiency of other specified B group vitamins, E78.5 - Hyperlipidemia, unspecified, I10 - Essential (primary) hypertension, K74.00 - Hepatic fibrosis, unspecified, Z98.84 - Bariatric surgery status Zinc Today E03.9 - Hypothyroidism, unspecified, E53.8 - Deficiency of other specified B group vitamins, E78.5 - Hyperlipidemia, unspecified, I10 - Essential (primary) hypertension, K74.00 - Hepatic fibrosis, unspecified, Z98.84 - Bariatric surgery status Vitamin B1 Today E03.9 - Hypothyroidism, unspecified, E53.8 - Deficiency of other specified B group vitamins, E78.5 - Hyperlipidemia, unspecified, I10 - Essential (primary) hypertension, K74.00 - Hepatic fibrosis, unspecified, Z98.84 - Bariatric surgery status Basic Metabolic Panel Today E03.9 - Hypothyroidism, unspecified, E53.8 - Deficiency of other specified B group vitamins, E78.5 - Hyperlipidemia, unspecified, I10 - Essential (primary) hypertension, K74.00 - Hepatic fibrosis, unspecified, Z98.84 - Bariatric surgery status Hemoglobin A1c Today E03.9 - Hypothyroidism, unspecified, E53.8 - Deficiency of other specified B group vitamins, E78.5 - Hyperlipidemia, unspecified, I10 - Essential (primary) hypertension, K74.00 - Hepatic fibrosis, unspecified, Z98.84 - Bariatric surgery status Complete Blood Count Auto Diff Today E03.9 - Hypothyroidism, unspecified, E53.8 - Deficiency of other specified B group vitamins, E78.5 - Hyperlipidemia, unspecified, I10 - Essential (primary) hypertension, K74.00 - Hepatic fibrosis, unspecified, Z98.84 - Bariatric surgery status IRON PROFILE Today E03.9 - Hypothyroidism, unspecified, E53.8 - Deficiency of other specified B group vitamins, E78.5 - Hyperlipidemia, unspecified, I10 - Essential (primary) hypertension, K74.00 - Hepatic fibrosis, unspecified, Z98.84 - Bariatric surgery status C Reactive Protein Today E03.9 - Hypothyroidism, unspecified, E53.8 - Deficiency of other specified B group vitamins, E78.5 - Hyperlipidemia, unspecified, I10 - Essential (primary) hypertension, K74.00 - Hepatic fibrosis, unspecified, Z98.84 - Bariatric surgery status Vitamin A Today E03.9 - Hypothyroidism, unspecified, E53.8 - Deficiency of other specified B group vitamins, E78.5 - Hyperlipidemia, unspecified, I10 - Essential (primary) hypertension, K74.00 - Hepatic fibrosis, unspecified, Z98.84 - Bariatric surgery status TSH reflex Free T4 Today E03.9 - Hypothyroidism, unspecified, E53.8 - Deficiency of other specified B group vitamins, E78.5 - Hyperlipidemia, unspecified, I10 - Essential (primary) hypertension, K74.00 - Hepatic fibrosis, unspecified, Z98.84 - Bariatric surgery status Ferritin Today E03.9 - Hypothyroidism, unspecified, E53.8 - Deficiency of other specified B group vitamins, E78.5 - Hyperlipidemia, unspecified, I10 - Essential (primary) hypertension, K74.00 - Hepatic fibrosis, unspecified, Z98.84 - Bariatric surgery status Vitamin D 25-OH Total Today E03.9 - Hypothyroidism, unspecified, E53.8 - Deficiency of other specified B group vitamins, E78.5 - Hyperlipidemia, unspecified, I10 - Essential (primary) hypertension, K74.00 - Hepatic fibrosis, unspecified, Z98.84 - Bariatric surgery status Telehealth Telehealth Location of provider rendering services: practice address Location of patient: address on file Patient Identification confirmed using: Name, : Yes Telehealth method: voice only Patient verbally consented to treatment: Yes Patient verbally consented to billing insurance company: Yes Patient informed of any privacy concerns related to visit: Yes Minutes spent on Phone/Video with Pt.: 20 Coding Level of Care Code Tele Est Pt Level 4 (69591) Diagnoses S/P laparoscopic sleeve gastrectomy Z98.84 LUQ abdominal pain R10.12 Time Spent (min) 30
== END 2024-02-05 10:14 | disposition home or self-care (01) ==
LOC: HO.HBS 09:29
PROVIDERS: PCP Internal Medicine; Visit Provider Physician Assistant Surgical
DX: R10.12 Left upper quadrant pain (principal); Z90.3 Acquired absence of stomach [part of]; Z98.84 Bariatric surgery status
CPT/HCPCS: 99214

== ENCOUNTER → 2024-02-05 09:29 | Outpatient (BNVA) | payer OTHER, SELFPAY | PROVIDERS: PCP Internal Medicine; Visit Provider Physician Assistant Surgical ==

== ENCOUNTER 2024-02-18 11:40 | Outpatient (AMB) | payer OTHER, SELFPAY ==
--- NOTE | 2024-02-18 11:33 | A.OFFVIS_ITS ---
Intake VS Expanded 02/18/24 16:22 Height 5 ft 3 in Weight 132 lb BMI 23.4 Intake Visit Reasons: (TV) PO LSG 08/28/23 Allergies No Known Allergies Allergy (Verified 12/25/23 09:24) HPI Nutrition Presentation Details LSG DOS 08/28/23 MEDICAL TECHNOLOGIST CLINICAL weight 05/14/23 - 229# Pt reports her goal was 140# current weight now 132# Reason for consult elevated BMI Diet Assmnt Details Since surgery, have LUQ pain, seeing MB and Dr. Florentino aware.Not food related. pt would like to maintain weight now 1/2 scoop celebrate powder with 8oz almo nd milk - Has tried Orgain in the past enjoyed it. 1 zone perfect bar . also looking for pr otein bar recs lunch 6 forks protein, 6 forks veg dinner 6 forks protein, 6forks veg she is vbery happy with the above Vitamin: taking celebrate calpsule MVI Exercise: doing a variety of things , stationary bike, swimming, walking Diagnosis Nutrition problem #1 overweight/obesity As related to (etiology) #1 excess energy intake and physical inactivity As evidenced by (sign/symptom) #1 high BMI Monitoring/Goals Nutrition problem monitoring total energy intake, level of knowledge/skill, total PRO intake, total CHO intake and weight Outcome progress progressing Learning/Education Readiness to learn excellent Stages of change action Educational materials provided Yes Most Recent Diabetes Results: Creatinine 0.64 mg/dL (0.5-1.4) 01/15/24 Blood Urea Nitrogen 16 mg/dL (9-16) 01/15/24 Sodium 141 mmol/L (135-145) 01/15/24 Potassium 3.9 mmol/L (3.3-5.1) 01/15/24 Chloride 102 mmol/L (96-108) 01/15/24 Carbon Dioxide 31 mmol/L (22-29) H 01/15/24 Calcium 9.3 mg/dL (8.4-10.2) 01/15/24 [facility] Medical History Cholelithiasis BMI 31.0-31.9,adult Pericarditis DJD (degenerative joint disease) Hyperlipidemia Hypothyroidism Hypertension Morbid obesity Surgical History Hx of laparoscopic partial gastrectomy H/O colonoscopy History of salpingo-oophorectomy Hx of section Hx of tonsillectomy Family History Mother Cancer Father Cancer Brother No problems noted. Brother No problems noted. Brother No problems noted. Brother No problems noted. Brother No problems noted. Sister No problems noted. Sister No problems noted. Son No problems noted. Daughter No problems noted. Daughter Hyperthyroidism Social History Household Members: Spouse and Family Housing: House Are you a primary healthcare or medical to a significant other at home: No Do you presently have visiting nurse or other home services: No Alcohol intake: never Patient Tobacco Use Status: Former Tobacco user Quit Date: 2010 Tobacco use type: Cigarette Years Smoked: 20 Assessment & Plan Assessment & Plan (1) S/P laparoscopic sleeve gastrectomy: Code(s): Z98.84 - Bariatric surgery status Plan see below Patient Instructions: pt now seeking maintanance. she will swtich to orgain powders shake with 2 scoops. can consider adding fruit and PB to it to increase nutrition. We also talked abotu how to add carbs to her meals after bariatric surgery . continue f/u with NATE Telehealth Telehealth Location of provider rendering services: practice address Location of patient: address on file Patient Identification confirmed using: Name, : Yes Telehealth method: voice only Patient verbally consented to treatment: Yes Patient verbally consented to billing insurance company: Yes Patient informed of any privacy concerns related to visit: Yes Minutes spent on Phone/Video with Pt.: 20 Coding Level of Care Code Nutr Indiv Subseq (57808) Diagnoses S/P laparoscopic sleeve gastrectomy Z98.84 Time Spent (min) 20
[2024-02-18 16:22] VITALS: BMI 23.4
== END 2024-02-18 12:12 | disposition home or self-care (01) ==
LOC: HO.HBS 11:40
PROVIDERS: PCP Internal Medicine; Visit Provider Dietitian, Registered
DX: Z98.84 Bariatric surgery status (principal)

== ENCOUNTER → 2024-02-18 11:40 | Outpatient (BNVA) | payer OTHER, SELFPAY | PROVIDERS: PCP Internal Medicine; Visit Provider Dietitian, Registered | DX: Z98.84 Bariatric surgery status (principal); Z71.3 Dietary counseling and surveillance | CPT/HCPCS: 97803 ==

== ENCOUNTER 2024-02-22 08:01 | Outpatient (REF) | payer OTHER, SELFPAY ==
[2024-02-22 08:14] LABS: MANUAL DIFF FLAG NO
[2024-02-22 08:31] LABS: Basophils Percent Auto 0.3 % (0-2); Eosinophils Percent Auto 0.5 % (0-4); Hemoglobin 12.6 g/dl (12.0-16.0); Imm Gran Abs Auto 0.02 X10*3/uL (0.00-0.03); Imm Gran Pct Auto 0.3 % (0.0-0.4); Lymphocytes Absolute Auto 1.4 X10*3/uL (1.2-4.9); Lymphocytes Percent Auto 20.7 % (20-40); Mean Corpuscular HGB Conc 33.2 g/dl (31.0-35.0); Mean Corpuscular Hemoglobin 27.6 pg (27.0-33.0); Mean Corpuscular Volume 83.2 fL (80.0-98.0); Mean Platelet Volume 11.8 fL (9.4-12.3); Monocytes Absolute Auto 0.5 X10*3/uL (0.1-1.2); Monocytes Percent Auto 6.8 % (2-11); Neutrophils Absolute Auto 4.7 x10*3/uL (2.0-8.3); Neutrophils Percent Auto 71.4 % (45-73); Platelet Count 147 X10*3/uL (160-400); Red Blood Count 4.57 X10*6/uL (4.20-5.50); Red Cell Distribution Width 14.4 % (11.0-16.0); White Blood Count 6.6 X10*3/uL (4.8-10.8)
[2024-02-22 08:38] LABS: Estimated Average Glucose 103 mg/dL; Hemoglobin A1c % 5.2 % (<6.0)
[2024-02-22 08:58] LABS: Anion Gap 9 (12-20); Blood Urea Nitrogen 16 mg/dL (9-16); C Reactive Protein 0.91 mg/dL (< or = 0.50); Calcium 9.3 mg/dL (8.4-10.2); Carbon Dioxide 31 mmol/L (22-29); Chloride 103 mmol/L (96-108); Cholesterol 210 mg/dL (<200); Estimated Glomerular Filt Rate > 60; Glucose Random 91 mg/dL (60-115); HDL Cholesterol 47 mg/dL (>40); Iron 74 mcg/dL (30-160); LDL Cholesterol Calculated 151 mg/dL (<100); Percent Iron Saturation 35 % (15-50); Sodium 139 mmol/L (135-145); Total Iron Binding Capacity 211 mcg/dL (228-428); Triglycerides 64 mg/dL (<150); Unsaturated Iron Binding 137 ug/dL
[2024-02-22 09:18] LABS: Ferritin 179 ng/mL (10-250); Insulin 3 uU/mL (2-29); TSH reflex Free T4 2.22 uIU/mL (0.32-4.0); Vitamin D 25-OH Total 53.8 ng/mL (>30)
[2024-02-22 09:29] LABS: Vitamin B12 1073 pg/mL (200-900)
[2024-02-26 01:20] LABS: Zinc 85 mcg/dL (60-130)
[2024-02-27 16:08] LABS: Vitamin A 47 mcg/dL (38-98)
[2024-02-28 06:49] LABS: Vitamin B1 27 nmol/L (8-30)
== END 2024-02-22 08:02 | disposition home or self-care (01) ==
LOC: HO.LAB 08:01
PROVIDERS: Visit Provider Physician Assistant Surgical
DX: K74.00 Hepatic fibrosis, unspecified (principal); E53.8 Deficiency of other specified B group vitamins; E78.5 Hyperlipidemia, unspecified; E03.9 Hypothyroidism, unspecified; I10 Essential (primary) hypertension; Z98.84 Bariatric surgery status
CPT/HCPCS: 36415; 80048; 80061; 82306; 82607; 82728; 82746; 83036; 83525; 83540; 84425; 84443; 84590; 84630; 85025; 86140

== ENCOUNTER 2024-03-14 10:17 | Outpatient (AMB) | payer OTHER, SELFPAY ==
--- NOTE | 2024-03-14 08:48 | A.OFFVIS_ITS ---
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 She is 6 months status post sleeve gastrectomy performed on 08/28/2023. Weight today is 133 with a BMI of 23.6.There has been a 96 pound weight loss,(initial weight 229 pounds) since starting the program on 05/14/23 reflecting a 41.9% total body weight loss and a weight loss of 55.5 pounds since surgery (operative weight 188.5 pounds) reflecting a 29.4% TBWL since surgery. No complaints of nausea, emesis, or reflux. Reports infrequent but normal bowel movements every 4 days days and uses stool softeners regularly. She had significant difficulty with constipation that is now improved with use of 1/2 cap MiraLax. She reports that she feels good overall. She continues to have intermittent left upper quadrant abdominal pain, more specifically mid axillary pain. She describes it as a 4/10 aching pain without significant radiation although does notice some radiation to the midline but not frequently. The pain is worse with sitting on the sofa or laying on her left side, improved with time. She has not taken any Tylenol for this. She denies any pain with standing up or with bicycling. She has been following the same meal plan and has no change in bowel or bladder habits. She has no urinary symptoms. Of note, she does have a history of lipomas. Chest x-ray and ultrasound were done 12/18/2023 and negative for acute pathology or soft tissue mass or fluid collection. She states that she continues to have discomfort in the left upper quadrant/rib, mid axillary area. Unrelated to bowel movements, urination or position. There is no specific pattern to this discomfort and happens multiple times per day. A CT scan was done to evaluate intestines and further evaluation of possible soft tissue mass. She does state that she has had difficulty with constipation throughout her life due to thyroid disease, but is currently moving her bowels daily with the use of MiraLax. Referred to GI for further evaluation. Scheduled for March. CT scan 01/30/24 done: 1. A cause for the patient's left upper quadrant pain has not been found. 2. Enlarged fatty liver. 3. Cholelithiasis without cholecystitis. 4. Status post gastric sleeve. 5. A 1.2 cm rim calcified splenic artery aneurysm. A follow-up CT scan in one year should be considered. 6. A 4 mm left lower lobe pulmonary nodule. She continues to check her blood pressure at home. Typically 1 teens 120s over 70s. She takes 1/2 tablet daily of her combination lisinopril/hydrochlorothiazide pill only if greater than 120/70. This is maybe 1 x per week. She states she has experienced some lightheadedness when taking her BP med. She has restarted her atorvastatin 10 mg daily. She is noted slight increase in her cholesterol panel. This was done fasting. She does report other family members having to take low-dose statin therapy for familial hyperlipidemia. Taking a celebrate MVI Present meal plan includes: Orgain, 1 scoops in 8 oz almond milk, 7-9 am 2 ZP bars 10-12 pm, 2-4 Meal 5 forks of protein and 5 forks of vegetables x 2, 1 pm and 5 pm Drinking 60 oz daily ? Exercise routine includes: 250 juan daily 5-6 days per week, 2-3 mile walk 40 min HR 150-160 or bike [facility] Medical History Cholelithiasis BMI 31.0-31.9,adult Pericarditis DJD (degenerative joint disease) Hyperlipidemia Hypothyroidism Hypertension Morbid obesity Surgical History Hx of laparoscopic partial gastrectomy H/O colonoscopy History of salpingo-oophorectomy Hx of section Hx of tonsillectomy Family History Mother Cancer Father Cancer Brother No problems noted. Brother No problems noted. Brother No problems noted. Brother No problems noted. Brother No problems noted. Sister No problems noted. Sister No problems noted. Son No problems noted. Daughter No problems noted. Daughter Hyperthyroidism Social History Household Members: Spouse and Family Housing: House Are you a primary skin care consultant to a significant other at home: No Do you presently have visiting nurse or other home services: No Alcohol intake: never Patient Tobacco Use Status: Former Tobacco user Quit Date: 2010 Tobacco use type: Cigarette Years Smoked: 20 Telehealth Telehealth Location of provider rendering services: practice address Location of patient: address on file Patient Identification confirmed using: Name, : Yes Telehealth method: voice only Patient verbally consented to treatment: Yes Patient informed of any privacy concerns related to visit: Yes Minutes spent on Phone/Video with Pt.: 20 Assessment & Plan Assessment & Plan (1) S/P laparoscopic sleeve gastrectomy: Code(s): Z98.84 - Bariatric surgery status Category: Surgical Plan: Patient has made excellent progress. Achieved a healthy and stable weight. Labs from the end of January reveal elevated cholesterol levels, consistent with familial hyperlipidemia, correlating with her known family history. She is resumed her atorvastatin 10 mg daily. Suggested stopping her lisinopril, hydrochlorothiazide altogether given the symptomatic complaints when she takes it, possibly only once per week. She will continue to monitor her blood pressure daily for the next month. Regarding the unknown etiology of her left-sided abdominal pain, this may be constipation related. She is scheduled to follow up with GI in March. We will have her return to the office here for her 9 month postop appointment with the understanding that she will contact the office sooner with any questions or concerns.
[2024-03-14 08:49] VITALS: BMI 23.6
== END 2024-03-14 10:23 | disposition home or self-care (01) ==
LOC: HO.HBS 10:17
PROVIDERS: PCP Internal Medicine; Visit Provider Physician Assistant Surgical
DX: R10.12 Left upper quadrant pain (principal); Z90.3 Acquired absence of stomach [part of]; Z98.84 Bariatric surgery status
CPT/HCPCS: 99213

== ENCOUNTER → 2024-03-14 10:17 | Outpatient (BNVA) | payer OTHER, SELFPAY | PROVIDERS: PCP Internal Medicine; Visit Provider Physician Assistant Surgical ==

== ENCOUNTER 2024-04-17 10:34 | Outpatient (AMB) | payer OTHER, SELFPAY ==
--- NOTE | 2024-04-17 10:35 | MHC.OFFVIS ---
Vital Signs 04/17/24 10:37 Height 5 ft 3 in Weight 136 lb 10.986 oz BMI 24.2 BP 167/82 H Blood Pressure Location Lt brachial Position Sitting Pulse 64 Intake Visit Reasons: LUQP Intake Note: Molly presents in the office as a new patient for LUQ pains. CC: She states that she is having LUQ pains. She states that she is having a lot of constipation, gases. She states that she does not have any N/V. 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 She has been seen by previous GI Abdominal ultrasound, Abdominal CT-reviewed with the patient noting splenic aneurysm scheduled to be seen by vascular at [facility] in a couple weeks Colonoscopy 2018- recommend 10 years HX- IBS in her 30s- metamucil- and senakot She has a BM QD- takes miralax-with good response-however years of alternating pattern, very concerned with family history of colon polyps she feels this is dismissed - Large external hemorrhoids- flare frequently- never reduces in size Family history adenomatous polyps- brother 50-as well as her mother No nausea, vomiting, hematemesis, fever or chills PFSH Medical History Cholelithiasis BMI 31.0-31.9,adult Pericarditis DJD (degenerative joint disease) Hyperlipidemia Hypothyroidism Hypertension Morbid obesity Surgical History Hx of laparoscopic partial gastrectomy H/O colonoscopy History of salpingo-oophorectomy Hx of section Hx of tonsillectomy Family History Mother Cancer Father Cancer Brother No problems noted. Brother No problems noted. Brother No problems noted. Brother No problems noted. Brother No problems noted. Sister No problems noted. Sister No problems noted. Son No problems noted. Daughter No problems noted. Daughter Hyperthyroidism Social History (Updated 04/17/24 @ 11:13 by Lin Lynn PA-C) Household Members: Spouse and Family Housing: House Are you a primary child day care center worker to a significant other at home: No Do you presently have visiting nurse or other home services: No Alcohol intake: never Patient Tobacco Use Status: Former Tobacco user Quit Date: 2010 Tobacco use type: Cigarette Years Smoked: 20 Current occupational status: employed Current occupation: school bus- Review of Systems Const All systems reviewed & are unremarkable except as noted in HPI and below Card Denies chest pain GI Reports abdominal pain and Denies heartburn Psych Reports anxiety Physical Exam Vital Signs: Last Vital Signs Pulse 64 04/17/24 10:37 BP 167/82 H 04/17/24 10:37 BMI result Body Mass Index 24.2 Const General: cooperative, healthy appearing, comfortable and no acute distress Orientation/consciousness: patient oriented x3 Limitations: no limitations Eyes Sclerae: sclerae normal Resp Effort & Inspection: normal respiratory effort and able to speak in complete sentences Auscultation: clear to auscultation bilaterally, no rhonchi, no wheezes and breath sounds present Cardio Rate: regular rate Rhythm: regular rhythm Heart sounds: S1 normal heart sound present and S2 normal heart sound present GI Palpation (GI): Soft to palpation and nontender Auscultation: normal bowel sounds Neuro General: patient oriented x3 Extrem General: Yes full ROM Psych Appearance: grossly normal and well kempt Mental Status: mental status grossly normal Speech and movement: Normal speech and movement present and Clear speech present Affect: normal affect Attitude: cooperative Thought process: Normal thought process present Thought content: Normal thought content present Insight: Good insight present (Psych) Judgement: Good judgement present (Psych) Results Reviewed Results Reviewed: CT/CT abdomen pelvis w IV con IMPRESSION: 1. A cause for the patient's left upper quadrant pain has not been found. 2. Enlarged fatty liver. 3. Cholelithiasis without cholecystitis. 4. Status post gastric sleeve. 5. A 1.2 cm rim calcified splenic artery aneurysm. A follow-up CT scan in one year should be considered. 6. A 4 mm left lower lobe pulmonary nodule. US/US abdomen limited IMPRESSION: Unremarkable ultrasound for further evaluation of left upper quadrant/lateral abdominal pain and possible left mid axillary palpable abnormality. FL/FL upper GI w air IMPRESSION: Unremarkable upper GI air-contrast study. Assessment & Plan Assessment & Plan (1) LUQ abdominal pain: Comment: Pleasant, anxious 59-year-old female Reviewed ultrasound CT scan Code(s): R10.12 - Left upper quadrant pain Category: Medical Plan: EGD (2) S/P laparoscopic sleeve gastrectomy: Comment: f/u Dr. Hicks- sent to GI- Code(s): Z98.84 - Bariatric surgery status Category: Surgical (3) Other family history of colon polyps: Comment: Brother 50-adenomas- Mother age unk Code(s): Z83.718 - Other family history of colon polyps Category: Medical Plan: polyp surveillance (4) Hemorrhoids: Code(s): K64.9 - Unspecified hemorrhoids Category: Medical Plan: Ref to surgery for consult avoid straining Metamucil (5) Splenic artery aneurysm: Comment: Awaiting scheduled consult with vascular at [place] Code(s): I72.8 - Aneurysm of other specified arteries Category: Medical Plan: Consult scheduled- 05/[address] Debora Kerns- vascular@ [place] (6) History of IBS: Comment: Schedule EGD colonoscopy discussed procedures, rare risks need for escort Code(s): Z87.19 - Personal history of other diseases of the digestive system Category: Medical Plan: Dietary modification Plan EGD/ colon Ref to surgery Reassurance Orders: Orders EGD/[place] Combo - GI Use Only Today Referrals General Surgery Referral K64.9 - Unspecified hemorrhoids Medications: New bisacodyl (Dulcolax (bisacodyl)) Day before procedure @ 12 noon Take 4 tablets by mouth followed by large glass of water 20 mg (4 x 5 mg) PO ONCE 1 day PRN 4 tabs 0RF colonoscopy prep Z12.11 - Encounter for screening for malignant neoplasm of colon polyethylene glycol 3350 (Miralax) Take as directed by mouth the day before your procedure. 238 grams PO ONCE 1 day PRN 238 grams 0RF laxative effect Patient Instructions: EGD/ colon- discussed procedure, rare risks need for escort MiraLax Gatorade prep, reviewed literature given Refer for surgical consult for hemorrhoid Maintain high-fiber diet Metamucil Avoid straining Follow-up vascular as scheduled Encouraged to call questions or concerns Coding Level of Care Code New Pt Level 4 (81442) Diagnoses LUQ abdominal pain R10.12 S/P laparoscopic sleeve gastrectomy Z98.84 Other family history of colon polyps Z83.718 Hemorrhoids K64.9 Splenic artery aneurysm I72.8 History of IBS Z87.19 Time Spent (min) 35 Comment Second opinion
[2024-04-17 10:37] VITALS: BP 167/82; PULSE 64; BMI 24.2
== END 2024-04-17 11:39 | disposition home or self-care (01) ==
PROVIDERS: PCP Internal Medicine; Visit Provider Physician Assistant
DX: R10.12 Left upper quadrant pain (principal); Z98.84 Bariatric surgery status; Z83.718 Family history of other colon polyps; K64.9 Unspecified hemorrhoids; I72.8 Aneurysm of other specified arteries; Z87.19 Personal history of other diseases of the digestive system
CPT/HCPCS: 99204

== ENCOUNTER → 2024-04-17 10:34 | Outpatient (BNVA) | payer OTHER, SELFPAY | PROVIDERS: PCP Internal Medicine; Visit Provider Physician Assistant ==

== ENCOUNTER 2024-05-15 10:40 | Outpatient (AMB) | payer OTHER, SELFPAY ==
--- NOTE | 2024-05-15 10:55 | MHC.OFFVIS ---
Vital Signs 05/15/24 11:00 Height 5 ft 3 in Weight 137 lb BMI 24.3 BP 147/67 H Blood Pressure Location Lt brachial Position Sitting Intake Visit Reasons: Hemorrhoids Intake Note: This patient presents for an assessment for hemorrhoids. Patient c/o; reports occasional rectal pain after bowel movements, reports had rectal bleeding in the past, reports straining with bowel movements. 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 She says that her hemorrhoids have been ?out? for about 6 months now. She says she feels this outside her anus. She describes frequent pain and swelling. She occasionally sees small amounts of blood. She says that her hemorrhoids have been bothering her because they are ?out? and she wants them removed. She denies constipation. [facility] Medical History (Updated 05/15/24 @ 11:37 by Gustavo Christopher MD) Internal and external prolapsed hemorrhoids Cholelithiasis BMI 31.0-31.9,adult Pericarditis DJD (degenerative joint disease) Hyperlipidemia Hypothyroidism Hypertension Morbid obesity Surgical History Hx of laparoscopic partial gastrectomy H/O colonoscopy History of salpingo-oophorectomy Hx of section Hx of tonsillectomy Family History Mother Cancer Father Cancer Brother No problems noted. Brother No problems noted. Brother No problems noted. Brother No problems noted. Brother No problems noted. Sister No problems noted. Sister No problems noted. Son No problems noted. Daughter No problems noted. Daughter Hyperthyroidism Social History Household Members: Spouse and Family Housing: House Are you a primary progressive care nurse to a significant other at home: No Do you presently have visiting nurse or other home services: No Alcohol intake: never Patient Tobacco Use Status: Former Tobacco user Tobacco use type: Cigarette Years Smoked: 20 Current occupational status: employed Current occupation: school bus- Review of Systems Const Denies chills and Denies fever(s) Card Denies chest pain, Denies dyspnea and Denies dyspnea on exertion Resp Denies cough, Denies dyspnea and Denies dyspnea on exertion GI Denies hematochezia and Denies change in bowel habits Denies hematuria Musc Denies back pain and Denies limited range of motion Neuro Denies focal weakness and Denies convulsions Psych Denies depression and Denies mood swings Physical Exam Vital Signs: Last Vital Signs BP 147/67 H 05/15/24 11:00 BMI result Body Mass Index 24.3 Const General: comfortable and no acute distress Orientation/consciousness: patient oriented x3 Neck Neck: Yes no lymphadenopathy Resp Auscultation: clear to auscultation bilaterally Cardio Rhythm: regular rhythm GI Other: Rectal exam shows moderate size external hemorrhoid on the right posterior Palpation (GI): Soft to palpation, nontender and no guarding Neuro General: patient oriented x3 Office Procedures Anoscopy She was in adryan-knife position. The anoscope was gently inserted. A full examination of the anal canal was done. She has this moderate-sized internal external hemorrhoidal column on the right posterior. She had smaller hemorrhoidal columns on the left. There were no other lesions. There was no fissure or induration. There was no bleeding [id number] Assessment & Plan Assessment & Plan (1) Internal and external prolapsed hemorrhoids: Code(s): K64.8 - Other hemorrhoids Category: Medical Plan: She states that her hemorrhoids have been bothering her and she wants to proceed with hemorrhoidectomy I had a long discussion with her about the technique of exam under anesthesia and hemorrhoidectomy. I reviewed the risks including but not limited to bleeding, Molly infections, postop pain, poor healing, as well as the benefits and alternatives. I also explained to her what to expect postoperatively. Although she says that her hemorrhoids do bother her, she wants to hold off on hemorrhoidectomy for now. She says she will come back to the office down the line if she wants this re-evaluated. Coding Level of Care Code New Pt Level 3 (65647) Diagnoses Internal and external prolapsed hemorrhoids K64.8 CPT Codes Details - CPT: 96079-[id number] ([id number])
[2024-05-15 11:00] VITALS: BP 147/67; BMI 24.3
== END 2024-05-15 11:41 | disposition home or self-care (01) ==
PROVIDERS: PCP Internal Medicine; Visit Provider Surgery
DX: K64.8 Other hemorrhoids (principal)
CPT/HCPCS: 46600; 99203

== ENCOUNTER → 2024-05-15 10:40 | Outpatient (BNVA) | payer OTHER, SELFPAY | PROVIDERS: PCP Internal Medicine; Visit Provider Surgery | DX: K64.8 Other hemorrhoids (principal); K64.4 Residual hemorrhoidal skin tags | CPT/HCPCS: 46600 ==

== ENCOUNTER 2024-06-13 08:43 | Outpatient (AMB) | payer OTHER, SELFPAY ==
--- NOTE | 2024-06-13 08:15 | MHC.OFFVISWM ---
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 She is 9 months status post sleeve gastrectomy performed on 08/28/2023. Weight today is 132.8 with a BMI of 23.5.There has been a 96.2 pound weight loss,(initial weight 229 pounds) since starting the program on 05/14/23 reflecting a 42% total body weight loss and a weight loss of 55.7 pounds since surgery (operative weight 188.5 pounds) reflecting a 29.5% TBWL since surgery. No complaints of nausea, emesis, or reflux. Reports infrequent but normal bowel movements every 4 days days and uses stool softeners regularly. She had significant difficulty with constipation that is now improved with use of 1/2 cap MiraLax. She reports that she feels good overall. She continues to check her blood pressure at home. Typically 1 teens 120s over 70s. She is no longer taking her BP meds She has restarted her atorvastatin 10 mg daily. She is noted slight increase in her cholesterol panel. This was done fasting. She does report other family members having to take low-dose statin therapy for familial hyperlipidemia. SHe states she had an upper GI at [facility] and was told she has reflux and evidence of HH. She has no complaints of reflux at all. Taking a celebrate MVI Present meal plan includes: Orgain, 2 scoops in 8 oz almond milk, 7-9 am 1 ZP bar 10-12 pm Meal 5 forks of protein and 5 forks of vegetables x 2, 1 pm and 5 pm Drinking 60 oz daily ? Exercise routine includes: 250-300 juan daily 5-6 days per week, 2-3 mile walk 40 min HR 150-160 or bike PFSH Medical History (Updated 05/15/24 @ 11:37 by Gustavo Christopher MD) Internal and external prolapsed hemorrhoids Cholelithiasis BMI 31.0-31.9,adult Pericarditis DJD (degenerative joint disease) Hyperlipidemia Hypothyroidism Hypertension Morbid obesity Surgical History Hx of laparoscopic partial gastrectomy H/O colonoscopy History of salpingo-oophorectomy Hx of section Hx of tonsillectomy Family History Mother Cancer Father Cancer Brother No problems noted. Brother No problems noted. Brother No problems noted. Brother No problems noted. Brother No problems noted. Sister No problems noted. Sister No problems noted. Son No problems noted. Daughter No problems noted. Daughter Hyperthyroidism Social History Household Members: Spouse and Family Housing: House Are you a primary property caretaker to a significant other at home: No Do you presently have visiting nurse or other home services: No Alcohol intake: never Patient Tobacco Use Status: Former Tobacco user Tobacco use type: Cigarette Years Smoked: 20 Current occupational status: employed Current occupation: school bus- Telehealth Telehealth Telehealth Platform: Telephone Location of provider rendering services: practice address Location of patient: address on file Patient Identification confirmed using: Name, : Yes Telehealth method: voice only Patient verbally consented to treatment: Yes Patient verbally consented to billing insurance company: Yes Patient informed of any privacy concerns related to visit: Yes Minutes spent on Phone/Video with Pt.: 15 Assessment & Plan Assessment & Plan (1) S/P laparoscopic sleeve gastrectomy: Comment: f/u Dr. Hicks- sent to GI- Code(s): Z98.84 - Bariatric surgery status Category: Surgical Plan: Patient has done extremely well. She is completely satisfied with her outcome. She will continue her current meal plan and exercise plan as she is typically within 1-2 lb of her current weight. She does report continued intermittent left-sided flank pain. She reports that she underwent an upper GI at [facility] and was told that she has evidence of reflux and hiatal hernia. She symptomatically reports no symptoms of reflux at all. I suggested she discuss this with Dr. Florentino. We will have her return to the office in August for her yearly follow-up. We will check labs at that time. She was encouraged to text if any questions or concerns.
[2024-06-13 08:18] VITALS: BMI 23.5
== END 2024-06-13 08:45 | disposition home or self-care (01) ==
LOC: HO.HBS 08:43
PROVIDERS: PCP Internal Medicine; Visit Provider Physician Assistant Surgical
DX: Z71.3 Dietary counseling and surveillance (principal); Z98.84 Bariatric surgery status
CPT/HCPCS: 99213

== ENCOUNTER → 2024-06-13 08:43 | Outpatient (BNVA) | payer OTHER, SELFPAY | PROVIDERS: PCP Internal Medicine; Visit Provider Physician Assistant Surgical ==

== ENCOUNTER 2024-07-08 13:55 | Outpatient (AMB) | payer OTHER, SELFPAY ==
[2024-07-08 10:24] VITALS: BMI 23.6
--- NOTE | 2024-07-08 10:24 | MHC.OFFVISWM ---
VS Expanded 07/08/24 10:24 Height 5 ft 3 in Weight 133 lb BMI 23.6 Body Fat % 28.7 Body Fat Mass 38.2 Fat Free Mass 94.8 Visceral Fat Rating 7 Body Water % 48.9 Body Water Mass 5 Muscle Mass/Score 89.2 Basal Metabolic Rate/Score 1,306 Intake Visit Reasons: (TV) Pre Op Lap Jodee 07/23/24 Allergies No Known Allergies Allergy (Verified 05/15/24 11:02) HPI Comments Details: 59 year-old female returns to the office in follow-up. She is 10 months status post sleeve gastrectomy performed on 08/28/2023. Weight today is 133 with a BMI of 23.6.There has been a 96 pound weight loss,(initial weight 229 pounds) since starting the program on 05/14/23 reflecting a 42% total body weight loss and a weight loss of 55.5 pounds since surgery (operative weight 188.5 pounds) reflecting a 29.5% TBWL since surgery. She does have a known calcified gallstone and is scheduled for laparoscopic cholecystectomy on 07/23/2024. This is her preop appointment. Scheduled for labs on 07/14/24. Meal plan: Orgain 1 scoop at 7-9 Rx bar 10-12 (12 gm protein) another shake 2-4 meal at noon and 5 pm 4 forks protein and 4 forks veg Exercise plan: 300-500 juan 5 days per week [facility] Medical History Internal and external prolapsed hemorrhoids Cholelithiasis BMI 31.0-31.9,adult Pericarditis DJD (degenerative joint disease) Hyperlipidemia Hypothyroidism Hypertension Morbid obesity Surgical History Hx of laparoscopic partial gastrectomy H/O colonoscopy History of salpingo-oophorectomy Hx of section Hx of tonsillectomy Family History Mother Cancer Father Cancer Brother No problems noted. Brother No problems noted. Brother No problems noted. Brother No problems noted. Brother No problems noted. Sister No problems noted. Sister No problems noted. Son No problems noted. Daughter No problems noted. Daughter Hyperthyroidism Social History Household Members: Spouse and Family Housing: House Are you a primary pharmacy care coordinator to a significant other at home: No Do you presently have visiting nurse or other home services: No Alcohol intake: never Patient Tobacco Use Status: Former Tobacco user Tobacco use type: Cigarette Years Smoked: 20 Current occupational status: employed Current occupation: school bus- Physical Exam Vital Signs: BMI result Body Mass Index 23.6 Telehealth Telehealth Telehealth Platform: Telephone Location of provider rendering services: practice address Location of patient: address on file Patient Identification confirmed using: Name, : Yes Telehealth method: voice only Patient verbally consented to treatment: Yes Patient verbally consented to billing insurance company: Yes Minutes spent on Phone/Video with Pt.: 20 Assessment & Plan Assessment & Plan (1) Pre-op exam: Code(s): Z01.818 - Encounter for other preprocedural examination Category: Medical Plan: Overall, patient has done very well. She does have symptomatic cholelithiasis and is scheduled for a laparoscopic cholecystectomy on 07/23/2024. She has been advised to avoid NSAIDs from now until surgery. She certainly may have Tylenol if needed for pain. We have ordered standard preop labs. All questions were answered to her satisfaction Orders: Orders Comprehensive Met. Panel Today Z01.818 - Encounter for other preprocedural examination Vitamin A Today Z01.818 - Encounter for other preprocedural examination Prothrombin Time INR Today Z01.818 - Encounter for other preprocedural examination Lipid Panel Today Z01.818 - Encounter for other preprocedural examination Type and Screen Today Z01.818 - Encounter for other preprocedural examination Vitamin B12 Today Z01.818 - Encounter for other preprocedural examination Partial Thromboplastin Time Today Z01.818 - Encounter for other preprocedural examination Vitamin D 25-OH Total Today Z01.818 - Encounter for other preprocedural examination Complete Blood Count Auto Diff Today Z01.818 - Encounter for other preprocedural examination Zinc Today Z01.818 - Encounter for other preprocedural examination IRON PROFILE Today Z01.818 - Encounter for other preprocedural examination TSH reflex Free T4 Today Z01.818 - Encounter for other preprocedural examination Hemoglobin A1c Today Z01.818 - Encounter for other preprocedural examination Vitamin B1 Today Z01.818 - Encounter for other preprocedural examination C Reactive Protein Today Z01.818 - Encounter for other preprocedural examination Ferritin Today Z01.818 - Encounter for other preprocedural examination
== END 2024-07-08 13:56 | disposition home or self-care (01) ==
LOC: HO.HBS 13:55
PROVIDERS: PCP Internal Medicine; Visit Provider Physician Assistant Surgical
DX: K80.80 Other cholelithiasis without obstruction (principal); Z01.818 Encounter for other preprocedural examination
CPT/HCPCS: 99499

== ENCOUNTER → 2024-07-08 13:55 | Outpatient (BNVA) | payer OTHER, SELFPAY | PROVIDERS: PCP Internal Medicine; Visit Provider Physician Assistant Surgical | DX: Z01.818 Encounter for other preprocedural examination (principal) ==

== ENCOUNTER 2024-07-09 10:28 | Day surgery (SDC) | payer OTHER, SELFPAY ==
--- NOTE | 2024-07-08 11:37 | P.CONAN_ITS ---
Documented by User: Susan Marroquin NP 07/08/24 11:38 HPI - Anesthesia Eval Consult details Narrative: 59yo F for Colonoscopy PMFSH Active Problems Active Problems: All Active Problems Internal and external prolapsed hemorrhoids (Acute) Splenic artery aneurysm (Acute) History of IBS (Acute) Hemorrhoids (Acute) Other family history of colon polyps (Acute) LUQ abdominal pain (Acute) S/P laparoscopic sleeve gastrectomy (Acute) Steatosis, liver (Acute) Liver fibrosis (Acute) LVH (left ventricular hypertrophy) (Acute) Pre-op exam (Acute) BMI 35.0-35.9,adult (Acute) Preoperative cardiovascular examination (Acute) Abnormal stress test (Acute) BMI 37.0-37.9, adult (Acute) Obesity (BMI 30-39.9) (Acute) Adjustment disorder, unspecified (Acute) Vitamin B12 deficiency (Acute) Abnormal EKG (Acute) Hyperlipidemia (Acute) Hypothyroidism (Acute) Hypertension (Acute) Morbid obesity (Acute) Past Medical History Medical History Internal and external prolapsed hemorrhoids Cholelithiasis BMI 31.0-31.9,adult Pericarditis DJD (degenerative joint disease) Hyperlipidemia Hypothyroidism Hypertension Morbid obesity Family History Family History Mother Cancer Father Cancer Brother No problems noted. Brother No problems noted. Brother No problems noted. Brother No problems noted. Brother No problems noted. Sister No problems noted. Sister No problems noted. Son No problems noted. Daughter No problems noted. Daughter Hyperthyroidism Family history of problems with anesthesia: No Surgical History Surgical History Hx of laparoscopic partial gastrectomy H/O colonoscopy History of salpingo-oophorectomy Hx of section Hx of tonsillectomy History of Problems with Anesthesia: No Social History Social History Household Members: Spouse and Family Housing: House Are you a primary resident care aid to a significant other at home: No Do you presently have visiting nurse or other home services: No Alcohol intake: never Patient Tobacco Use Status: Former Tobacco user Tobacco use type: Cigarette Years Smoked: 20 Current occupational status: employed 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 Allergies Allergy/AdvReac Type Severity Reaction Status Date / Time No Known Allergies Allergy Verified 07/09/24 10:55 Home Medications ?Medication ?Instructions ?Recorded ?Confirmed ?Last Taken ?Type celebrate MVI PO .qd 12/25/23 06/13/24 Unknown History atorvastatin 10 mg tablet 10 mg PO BEDTIME 03/14/24 06/13/24 Unknown History levothyroxine 50 mcg tablet 25 mcg PO DAILY 04/17/24 07/09/24 07/09/24 04:30 History Assessment and Plan Assessment Anesthesia Assessment: Chart Reviewed Final Anesthetic Review Family History of Problems with Anesthesia: No History of Problems with Anesthesia: No Documented by User: Linda Crawford MD 07/09/24 11:32 [facility] Past Medical History Medical History Internal and external prolapsed hemorrhoids Cholelithiasis BMI 31.0-31.9,adult Pericarditis DJD (degenerative joint disease) Hyperlipidemia Hypothyroidism Hypertension Morbid obesity Family History Family History Mother Cancer Father Cancer Brother No problems noted. Brother No problems noted. Brother No problems noted. Brother No problems noted. Brother No problems noted. Sister No problems noted. Sister No problems noted. Son No problems noted. Daughter No problems noted. 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 Allergies Allergy/AdvReac Type Severity Reaction Status Date / Time No Known Allergies Allergy Verified 07/09/24 10:55 Home Medications ?Medication ?Instructions ?Recorded ?Confirmed ?Last Taken ?Type celebrate MVI PO .qd 12/25/23 06/13/24 Unknown History atorvastatin 10 mg tablet 10 mg PO BEDTIME 03/14/24 06/13/24 Unknown History levothyroxine 50 mcg tablet 25 mcg PO DAILY 04/17/24 07/09/24 07/09/24 04:30 History Exam Airway Mallampati Class: II TM Dist: >3cm Neck ROM: Full Heart: rrr Lungs: cta Assessment and Plan Assessment Anesthesia Assessment: Anesthesia Plan Discussed Final Anesthetic Review NPO: Yes ASA Class: II Final Preanesthetic Review: No Changes in Pt Med Stat, Meds/Allgs Chart Reviewed and Consent Obtained/Reviewed Patient Risk: Low Procedure Risk: Low Anesthetic Plan Anesthetic Plan: MAC: Disposition: Standard PACU
--- NOTE | 2024-07-09 10:56 | P.HPSUR_ITS ---
Pre-Procedural Eval Section A - 24 Hr Update-Section A only Date of Service: 07/09/24 Section B - Complete if H&P > 30 days Chief Complaint: Bariatric surgery status,hx colon polyps,pain Details of Present Illness: strong FH of colonic polyps Relevant Family History (Specify if Yes): Yes Relevant Social History: None Present Medications: see Short Stay Collaborative assessment Medical History: Significant History (Internal and external prolapsed hemorrhoids Cholelithiasis BMI 31.0-31.9,adult Pericarditis DJD (degenerative joint disease) Hyperlipidemia Hypothyroidism Hypertension Morbid obesity) History of Previous Operations: Relevant previous surgery/procedure and date(s) (Hx of laparoscopic partial gastrectomy H/O colonoscopy History of salpingo- oophorectomy Hx of section Hx of tonsillectomy) Allergies: Allergies Allergy/AdvReac Type Severity Reaction Status Date / Time No Known Allergies Allergy Verified 07/09/24 10:55 Review of Systems Sugical H&P ROS: Negative: Constitution, Cardiovascular, Respiratory, Ashwini rological, Psychiatric, Hem-Onc, Allergic/Immunologic, Gastrointestinal, Genitourinary, Musculoskeletal, Integumentary, Endocrine and Eyes/Ears/Nose/Throat Exam Surgical H&P Exam: Normal: HEENT, Normal: Heart, Normal: Lungs, Normal: Extremities, Normal: Abdomen, Normal: Skin and Normal: Neurological Plan Diagnosis/Plan: Unchanged I have reviewed the history and physical and performed a pertinent physical examination on my patient. No changes have occurred unless specified. Time Spent With Patient Time: Total time managing care of this patient today ____ minutes.
[2024-07-09 11:01] VITALS: BMI 23.2
[2024-07-09 11:19] VITALS: BP 181/92; PULSE 73; RESP 16; TEMP 36.2; O2SAT 99; BMI 23.2
[2024-07-09] MEDS: Lactated Ringers 1,000 ML 100 ML IVCONT (11:23)
[2024-07-09 12:23] VITALS: BP 134/75; PULSE 65; RESP 16; TEMP 36.2; O2SAT 98
--- NOTE | 2024-07-09 12:24 | P.OP_ITS ---
Operative Note Operative Note Date of Service: 07/09/24 Narrative: Operative Information Procedure Description: Colonoscopy Indication: screening Anesthesia: MAC COLONOSCOPY Instrument: Olympus variable stiffness pediatric scope 190L Colonoscopy Monitoring: Vital signs and clinical assessment, continuous EKG monitoring, Pulse oximetry, Carbon Dioxide monitoring and blood pressure monitoring were done throughout the procedure. Colon withdrawal time was 8 minutes. Procedure: The patient was placed in the left lateral decubitis position and pre-procedure medications were administered. After a digital rectal examination of the ano-rectum, the video colonoscope was inserted into the rectum and advanced through the colon to the cecum/TI. The colonoscope was slowly withdrawn in a retrograde panoramic fashion and the colon mucosa was carefully examined including a retroflexed view of the rectum. Findings and interventions are described below. Procedure Difficulty: moderate- rpressure applied Findings: Terminal Ileum-not intubated due to looping Cecum:normal Ascending Colon: normal Transverse Colon -normal Descending Colon:normal Sigmoid Colon: normal Rectum: Retroflexion with large internal hemorrhoids seen, grade I Very tortuous colon Anorectum - normal Intervention: none Colon preparation: [place] Bowel Preparation Scale Right colon; 2 Transverse colon: 2 Left colon; 2 (0 = Unprepared colon segment with mucosa not seen due to solid stool that cannot be cleared. 1 = Portion of mucosa of the colon segment seen, but other areas of the colon segment not well seen due to staining, residual stool and/or opaque liquid. 2 = Minor amount of residual staining, small fragments of stool and/or opaque liquid, but mucosa of colon segment seen well. 3 = Entire mucosa of colon segment seen well with no residual staining, small fragments of stool or opaque liquid) Impression and Post Procedure Diagnosis: tortuous colon internal hemorrhoids Plan: High fiber diet leaflet Avoid straining at stool, epsom salts and sitz bath, anusol supps or cream Repeat Colonoscopy in 5 years due to strong FH of colonic polyps or earlier if clinically indicated --next time consider using adult colonoscope Above findings were reviewed with the patient and relevant handouts were provided if indicated.
[2024-07-09 12:38] VITALS: BP 120/84; PULSE 54; RESP 16; TEMP 36.8; O2SAT 100
== END 2024-07-09 13:20 | disposition home or self-care (01) ==
PROVIDERS: PCP Internal Medicine; Visit Provider Internal Medicine Gastroenterology
PROC: 0DJD8ZZ Inspection of Lower Intestinal Tract, Via Natural or Artificial Opening Endoscopic (ICD-10-PCS; CPT 45378; principal; 2024-07-09 12:50)
DX: Z12.11 Encounter for screening for malignant neoplasm of colon (principal); Z83.718 Family history of other colon polyps; K64.0 First degree hemorrhoids; R10.12 Left upper quadrant pain; Q43.8 Other specified congenital malformations of intestine; Z87.19 Personal history of other diseases of the digestive system; Z90.3 Acquired absence of stomach [part of]; I31.9 Disease of pericardium, unspecified; I10 Essential (primary) hypertension; E78.5 Hyperlipidemia, unspecified; E03.9 Hypothyroidism, unspecified; I72.8 Aneurysm of other specified arteries; E66.01 Morbid (severe) obesity due to excess calories; Z68.31 Body mass index [BMI] 31.0-31.9, adult; Z79.899 Other long term (current) drug therapy; Z98.84 Bariatric surgery status; Z98.890 Other specified postprocedural states; Z87.891 Personal history of nicotine dependence
CPT/HCPCS: 45378; J2704

== ENCOUNTER → 2024-07-09 10:28 | Outpatient (BNV) | payer OTHER, SELFPAY | PROVIDERS: PCP Internal Medicine; Visit Provider Internal Medicine Gastroenterology | DX: Z12.11 Encounter for screening for malignant neoplasm of colon (principal); Z80.0 Family history of malignant neoplasm of digestive organs; K64.0 First degree hemorrhoids | CPT/HCPCS: 45378 ==

== ENCOUNTER 2024-07-14 07:49 | Outpatient (REF) | payer OTHER, SELFPAY ==
[2024-07-14 08:12] LABS: MANUAL DIFF FLAG NO
[2024-07-14 08:23] LABS: Basophils Percent Auto 0.4 % (0-2); Eosinophils Percent Auto 0.6 % (0-4); Hematocrit 41.3 % (37.0-47.0); Hemoglobin 13.7 g/dl (12.0-16.0); Imm Gran Abs Auto 0.01 X10*3/uL (0.00-0.03); Imm Gran Pct Auto 0.2 % (0.0-0.4); Lymphocytes Absolute Auto 1.3 X10*3/uL (1.2-4.9); Lymphocytes Percent Auto 25.9 % (20-40); Mean Corpuscular HGB Conc 33.2 g/dl (31.0-35.0); Mean Corpuscular Hemoglobin 27.8 pg (27.0-33.0); Mean Corpuscular Volume 83.8 fL (80.0-98.0); Mean Platelet Volume 11.1 fL (9.4-12.3); Monocytes Absolute Auto 0.3 X10*3/uL (0.1-1.2); Monocytes Percent Auto 6.9 % (2-11); Neutrophils Absolute Auto 3.2 x10*3/uL (2.0-8.3); Platelet Count 145 X10*3/uL (160-400); Red Blood Count 4.93 X10*6/uL (4.20-5.50); Red Cell Distribution Width 13.1 % (11.0-16.0); White Blood Count 4.9 X10*3/uL (4.8-10.8)
[2024-07-14 08:27] LABS: Prothrombin Time 12.4 SEC (11.1-13.3)
[2024-07-14 08:29] LABS: Partial Thromboplastin Time 36.2 SEC (26.0-36.8)
[2024-07-14 08:32] LABS: Estimated Average Glucose 103 mg/dL; Hemoglobin A1c % 5.2 % (<6.0)
[2024-07-14 08:53] LABS: Alanine Aminotransferase 31 U/L (0-31); Albumin Level 4.4 g/dL (3.5-5.0); Alkaline Phosphatase 57 U/L (39-117); Anion Gap 10 (12-20); Aspartate Amino Transferase 27 U/L (5-31); Bilirubin Total 0.8 mg/dL (0.0-1.0); Blood Urea Nitrogen 16 mg/dL (9-16); C Reactive Protein 0.15 mg/dL (< or = 0.50); Calcium 10.3 mg/dL (8.4-10.2); Carbon Dioxide 33 mmol/L (22-29); Chloride 104 mmol/L (96-108); Cholesterol 162 mg/dL (<200); Estimated Glomerular Filt Rate > 60; Glucose Random 96 mg/dL (60-115); HDL Cholesterol 61 mg/dL (>40); Iron 120 mcg/dL (30-160); LDL Cholesterol Calculated 88 mg/dL (<100); Percent Iron Saturation 49 % (15-50); Sodium 142 mmol/L (135-145); Total Iron Binding Capacity 246 mcg/dL (228-428); Total Protein 7.1 g/dL (6.5-8.0); Triglycerides 67 mg/dL (<150); Unsaturated Iron Binding 126 ug/dL
[2024-07-14 09:12] LABS: Ferritin 161 ng/mL (10-250); TSH reflex Free T4 2.51 uIU/mL (0.32-4.0); Vitamin D 25-OH Total 57.1 ng/mL (>30)
[2024-07-14 09:13] LABS: Vitamin B12 905 pg/mL (200-900)
[2024-07-17 04:28] LABS: Zinc 81 mcg/dL (60-130)
[2024-07-17 21:13] LABS: Vitamin A 57 mcg/dL (38-98)
[2024-07-21 06:24] LABS: Vitamin B1 15 nmol/L (8-30)
== END 2024-07-14 07:50 | disposition home or self-care (01) ==
LOC: HO.LAB 07:49
PROVIDERS: PCP Internal Medicine; Visit Provider Physician Assistant Surgical
DX: Z01.812 Encounter for preprocedural laboratory examination (principal)
CPT/HCPCS: 36415; 80053; 80061; 82306; 82607; 82728; 83036; 83540; 84425; 84443; 84590; 84630; 85025; 85610; 85730; 86140

== ENCOUNTER 2024-07-24 08:59 | Day surgery (SDC) | payer OTHER, SELFPAY ==
[2024-07-22 13:45] VITALS: BMI 23.6
--- NOTE | 2024-07-23 11:51 | HO.ANESPROP2 ---
Documented by User: Susan Marroquin NP 07/23/24 11:57 HPI - Anesthesia Eval Consult details Narrative: 59yo F for Cholecystectomy Laparoscopic s/p [place] 06/2024 with TIVA s/p sleeve 08/2023 (Cardiac optimized prior) [facility] Active Problems Active Problems: All Active Problems Splenic artery aneurysm (Acute) History of IBS (Acute) Hemorrhoids (Acute) Other family history of colon polyps (Acute) LUQ abdominal pain (Acute) S/P laparoscopic sleeve gastrectomy (Acute) Steatosis, liver (Acute) Liver fibrosis (Acute) LVH (left ventricular hypertrophy) (Acute) Pre-op exam (Acute) BMI 35.0-35.9,adult (Acute) Preoperative cardiovascular examination (Acute) Abnormal stress test (Acute) BMI 37.0-37.9, adult (Acute) Obesity (BMI 30-39.9) (Acute) Adjustment disorder, unspecified (Acute) Vitamin B12 deficiency (Acute) Abnormal EKG (Acute) Internal and external prolapsed hemorrhoids (Acute) Hyperlipidemia (Acute) Hypothyroidism (Acute) Hypertension (Acute) Morbid obesity (Acute) Past Medical History Medical History Splenic artery aneurysm Internal and external prolapsed hemorrhoids Cholelithiasis Pericarditis BMI 31.0-31.9,adult DJD (degenerative joint disease) Hyperlipidemia Hypothyroidism Hypertension Morbid obesity Family History Family History Mother Cancer Father Cancer Brother No problems noted. Brother No problems noted. Brother No problems noted. Brother No problems noted. Brother No problems noted. Sister No problems noted. Sister No problems noted. Son No problems noted. Daughter No problems noted. Daughter Hyperthyroidism Family history of problems with anesthesia: No Surgical History Surgical History History of sleeve gastrectomy H/O colonoscopy History of salpingo-oophorectomy Hx of section Hx of tonsillectomy History of Problems with Anesthesia: No Social History Social History Household Members: Spouse and Family Housing: House Are you a primary cna caregiver to a significant other at home: No Do you presently have visiting nurse or other home services: No Alcohol intake: never Patient Tobacco Use Status: Former Tobacco user Tobacco use type: Cigarette Years Smoked: 20 Use of substances other than those prescribed or required for medical reasons: No Have you been hit, kicked, punched, or otherwise hurt by someone within the past year? If so, by whom?: No Are you DNR?: No Advance Directives: No Advance Directives Information Provided: Yes Advance Directives on File: No Recently lost weight without trying: No Nutrition Risks: No Nutritional Risk Current occupational status: employed Current occupation: [employer] Allergies Allergy/AdvReac Type Severity Reaction Status Date / Time No Known Allergies Allergy Verified 07/24/24 11:22 Home Medications ?Medication ?Instructions ?Recorded ?Confirmed ?Last Taken ?Type celebrate MVI 1 tab PO DAILY 12/25/23 07/22/24 07/23/24 History atorvastatin 10 mg tablet 10 mg PO BEDTIME 03/14/24 07/22/24 07/23/24 History levothyroxine 50 mcg tablet 25 mcg PO DAILY 04/17/24 07/22/24 07/24/24 History Exam Height,Weight and Vital Signs: Height 5 ft 3 in Weight 60.328 kg Pertinent Lab Results Pertinent Lab Results: Laboratory Tests 07/14/24 07:58 Blood Type O Positive Antibody Screen NEGATIVE Laboratory Tests 07/14/24 08:11 WBC 4.9 Hgb 13.7 Hct 41.3 Plt Count 145 L Sodium 142 Potassium 5.0 D Chloride 104 Carbon Dioxide 33 H BUN 16 Creatinine 0.78 Assessment and Plan Assessment Anesthesia Assessment: Chart Reviewed Final Anesthetic Review Family History of Problems with Anesthesia: No History of Problems with Anesthesia: No Documented by User: Shell Bautista MD 07/24/24 13:51 HPI - Anesthesia Eval Consult details Narrative: 59yo F for Laparoscopic Cholecystectomy s/p [place] 06/2024 with TIVA s/p Laparoscopic Sleeve Gastrectomy 08/2023 (Cardiac optimized prior) PMFSH Active Problems Active Problems: All Active Problems Splenic artery aneurysm (Acute) History of IBS (Acute) Hemorrhoids (Acute) Other family history of colon polyps (Acute) LUQ abdominal pain (Acute) S/P laparoscopic sleeve gastrectomy (Acute) Steatosis, liver (Acute) Liver fibrosis (Acute) LVH (left ventricular hypertrophy) (Acute) Preoperative cardiovascular examination (Acute) H/o Abnormal stress test (Acute) Adjustment disorder, unspecified (Acute) Vitamin B12 deficiency (Acute) Abnormal EKG (Acute) Internal and external prolapsed hemorrhoids (Acute) Hyperlipidemia (Acute) Hypothyroidism (Acute) Hypertension (Acute)- Not taking BP meds. BP normal at home. High in hospital Morbid obesity (Acute) Past Medical History Medical History Splenic artery aneurysm Internal and external prolapsed hemorrhoids Cholelithiasis Pericarditis BMI 31.0-31.9,adult DJD (degenerative joint disease) Hyperlipidemia Hypothyroidism Hypertension Morbid obesity Family History Family History Mother Cancer Father Cancer Brother No problems noted. Brother No problems noted. Brother No problems noted. Brother No problems noted. Brother No problems noted. Sister No problems noted. Sister No problems noted. Son No problems noted. Daughter No problems noted. Daughter Hyperthyroidism Family history of problems with anesthesia: No Surgical History Surgical History History of sleeve gastrectomy H/O colonoscopy History of salpingo-oophorectomy Hx of section Hx of tonsillectomy History of Problems with Anesthesia: No Social History Social History Household Members: Spouse and Family Housing: House Are you a primary cna caregiver to a significant other at home: No Do you presently have visiting nurse or other home services: No Alcohol intake: never Patient Tobacco Use Status: Former Tobacco user Tobacco use type: Cigarette Years Smoked: 20 Use of substances other than those prescribed or required for medical reasons: No Have you been hit, kicked, punched, or otherwise hurt by someone within the past year? If so, by whom?: No Are you DNR?: No Advance Directives: No Advance Directives Information Provided: Yes Advance Directives on File: No Recently lost weight without trying: No Nutrition Risks: No Nutritional Risk Current occupational status: employed Current occupation: school [employer] Allergies Allergy/AdvReac Type Severity Reaction Status Date / Time No Known Allergies Allergy Verified 07/24/24 11:22 Home Medications ?Medication ?Instructions ?Recorded ?Confirmed ?Last Taken ?Type celebrate MVI 1 tab PO DAILY 12/25/23 07/22/24 07/23/24 History atorvastatin 10 mg tablet 10 mg PO BEDTIME 03/14/24 07/22/24 07/23/24 History levothyroxine 50 mcg tablet 25 mcg PO DAILY 04/17/24 07/22/24 07/24/24 History Exam Height,Weight and Vital Signs: Height 5 ft 3 in Weight 60.328 kg Vital Signs Temp Pulse Resp BP Pulse Ox O2 Del Method 07/24/24 10:56 98.0 F 66 18 163/87 H 100 Room Air Pertinent Lab Results Pertinent Lab Results: fLaboratory Tests 07/14/24 07:58 Blood Type O Positive Antibody Screen NEGATIVE Laboratory Tests 07/14/24 08:11 WBC 4.9 Hgb 13.7 Hct 41.3 Plt Count 145 L Sodium 142 Potassium 5.0 D Chloride 104 Carbon Dioxide 33 H BUN 16 Creatinine 0.78 Airway Mallampati Class: I TM Dist: >3cm Neck ROM: Full Partial: Upper and Lower Loose/Missing/Broken Teeth: Yes (Partials top and bottom. Denies broken or loose teeth) Heart: RRR Lungs: CTAB Assessment and Plan Assessment Anesthesia Assessment: Anesthesia Plan Discussed and Chart Reviewed Final Anesthetic Review Family History of Problems with Anesthesia: No History of Problems with Anesthesia: No NPO: Yes ASA Class: II Final Preanesthetic Review: No Changes in Pt Med Stat, Meds/Allgs Chart Reviewed, Consent Obtained/Reviewed and Anes Risks/Benef Reviewed Patient Risk: Low Procedure Risk: Low Assessment/Block/Sedation in SS: Assess/Block/Sedation- Anesthetic Plan Anesthetic Plan: GA Disposition: Standard PACU
[2024-07-24] VITALS (10 sets, daily range): BP systolic 154–176; BP diastolic 79–87; PULSE 60–92; RESP 12–19; TEMP 36.1–36.7; O2SAT 97–100
[2024-07-24] MEDS: Lactated Ringers 1,000 ML 100 ML IVCONT (10:57)
[2024-07-24] MEDS: Aprepitant 32 MG/4.4 ML VIAL IVPUSH (11:12)
--- NOTE | 2024-07-24 11:34 | PM.OP ---
Brief Operative Note Date of Service: 07/24/24 Pre-op diagnosis: Epigastric pain and cholelithiasis Post-op diagnosis: same Procedure: PROCEDURE DATE: 07/24/2024 PREOPERATIVE DIAGNOSIS: Symptomatic cholelithiasis, mid epigastric and left upper quadrant abdominal pain POSTOPERATIVE DIAGNOSIS: Same as above. PROCEDURE: Laparoscopic cholecystectomy and lysis of adhesions Surgeon: Leonides Florentino M.D.. Ph.D. [employer] Worker Composites: Jessie Waters PA-C Anesthesia: General endotracheal anesthesia Estimated blood loss: Minimal FINDINGS AND PROCEDURE: OPERATIVE INDICATIONS: The patient is a 59 year old female known to me who underwent a laparoscopic sleeve gastrectomy. The patient had remarkable weight loss so far and had a completely uneventful recovery. The patient was doing very well but has recently been complaining of persistent mid epigastric and right upper quadrant abdominal pain which is mostly postprandial. Ultrasound of the abdomen and pelvis was consistent with cholelithiasis. Based on this information we recommended laparoscopic cholecystectomy, upper endoscopy to evaluate the patient's symptoms. In addition to that the plan was also to examine the gastric bypass at the same time. Risks and complications of the surgery were discussed with the patient in advance particularly the possibility of conversion to an open surgery, bleeding, infection, obstruction, deep vein thrombosis or pulmonary embolism, bile leak or major bile duct injury that may require surgical intervention. The patient understood the risks and was in agreement with the plan. PROCEDURE: After informed consent was obtained by the patient, the patient was transferred to the Operating Room and was placed in the supine position. The patient was given preoperative antibiotics and after successful induction of general anesthesia pneumatic compression devices were placed. The patient was then prepped and draped in the usual sterile manner and abdominal access was established with the Ambika techniqu. The abdomen was insufflated with C02 to a pressure of 15 mmHg. A 5 mm Versi-step port was placed, slightly to the right and superior from the umbilicus. The 5 mm camera was introduced. We inspected the area where the port had been placed and there was no injury. The patient was then placed initially in a steep reverse Trendelenburg position and three additional ports were placed, specifically a 12 mm Versi-step port just to the right of the midline below the xiphoid process and two 5 mm Versi-step ports at the right upper quadrant and right flank. The sleeve gastrectomy was inspected and it was completely normal. There were no adhesions of twists at all. At that point the patient was placed in a steep reverse Trendelenburg position tilted to the left side. The gallbladder was retracted cephalad and laterally. There were adhesions between the omentum and the gallbladder wall that were taken down. The peritoneal attachments of the gallbladder at the triangle of Calot posteriorly and anteriorly were taken down. The cystic duct and artery were both seen. They were completely dissected free, skeletonized all the way to the infundibulum of the gallbladder . In a similar fashion we also cleaned the liver bed just behind the cystic artery to make sure there was no additional structures in this area. Once we confirmed that both structures were entering into the gallbladder and there were no other structures in the area, they were both clipped with two clips proximally, one distally and were cut in-between. We then using the electrocautery we slowly took down the gallbladder from the liver bed. Small areas of bleeding from the liver parenchyma were controlled with the cautery. After the gallbladder was completely detached from the liver bed, it was placed in an EndoCatch bag and was removed without difficulty from the xiphoid port. We then inspected the clips at the cystic duct and artery and were both in place. There was no active bleeding from the liver bed. We thoroughly irrigated the right upper quadrant and we removed all fluid until clear. At that point the patient was placed in supine position, we deflated the abdomen and we removed all ports under direct vision and no bleeding was noted from any of the port sites. The fascia of the 12 mm port was closed using a #1 Polysorb suture. 30cc Ropivacaine and 1% Lidocaine plain were used to infiltrate the fascial closure as well as all skin incisions. A total of ml Zynrelef was applied in the Ambika wound. The wounds were irrigated with saline mixed with antibiotic solution and then the skin was closed with 4-0 Monocryl subcuticular sutures antibiotic-coated. Steri-strips and OpSites were used to cover all incisions. The patient extubated and was transferred in stable condition to the Recovery Room for further care. I was present and performed all steps of the procedure. Chari Mullinsflaco was the first helper. There were no residents to assist with this case. Leonides Florentino M.D., Ph.D., F.A.C.S. Surgeon: Trav Florentino MD Anesthesia: GETA, local and other (TAP block and Zynrelef) Was an [employer] Worker Composites used for this Procedure?: No [employer] Worker Composites: Jessie Waters Estimated blood loss (mL): 10 IV fluids (mL): 1,400 Urine output (mL): 0 (No Hummel to record output) Pathology: other (Gallbladder) Condition: stable Disposition: PACU
--- NOTE | 2024-07-24 11:41 | MHC.SHP ---
Pre-Procedural Eval Section A - 24 Hr Update-Section A only Date of Service: 07/24/24 The patient is an INPATIENT: No The patient has been examined within 24 hours of the surgical procedure. The History & Physical has been completed within 30 days and I have reviewed it.: Yes Section B - Complete if H&P > 30 days Chief Complaint: Calculus of gallbladder without cholecystitis Relevant Family History (Specify if Yes): No Relevant Social History: None Present Medications: None Medical History: No relevant PMH History of Previous Operations: No relevant previous surgery Allergies: Allergies Allergy/AdvReac Type Severity Reaction Status Date / Time No Known Allergies Allergy Verified 07/24/24 11:22 Review of Systems Sugical H&P ROS: Negative: Constitution, Cardiovascular, Respiratory, Neurological, Psychiatric, Hem-Onc, Allergic/Immunologic, Genitourinary, Musculoskeletal, Integumentary, Endocrine and Eyes/Ears/Nose/Throat and Yes, Specify: Gastrointestinal (abdominal pain) Exam Surgical H&P Exam: Normal: HEENT, Normal: Heart, Normal: Lungs, Normal: Extremities, Normal: Abdomen, Normal: Skin and Normal: Neurological Plan Diagnosis/Plan: Unchanged I have reviewed the history and physical and performed a pertinent physical examination on my patient. No changes have occurred unless specified. Time Spent With Patient Time: Total time managing care of this patient today ____ minutes.
[2024-07-24] MEDS: fentaNYL citrate/PF 100 MCG/2 ML VIAL 25 MCG IVPUSH ×3 (14:20→14:30)
[2024-07-24] MEDS: droPERidol 5 MG/2 ML VIAL 0.625 MG IVPUSH (14:37)
== END 2024-07-24 15:54 | disposition home or self-care (01) ==
PROVIDERS: PCP Internal Medicine; Visit Provider Surgery
PROC: 0FT44ZZ Resection of Gallbladder, Percutaneous Endoscopic Approach (ICD-10-PCS; CPT 47562; principal; 2024-07-24 11:50)
DX: K80.10 Calculus of gallbladder with chronic cholecystitis without obstruction (principal); K82.8 Other specified diseases of gallbladder; Z98.84 Bariatric surgery status; Z90.3 Acquired absence of stomach [part of]; I10 Essential (primary) hypertension; E78.5 Hyperlipidemia, unspecified; Z79.899 Other long term (current) drug therapy; Z87.891 Personal history of nicotine dependence
CPT/HCPCS: 47562; 86850; 86900; 86901; 88304; C9145; J0131; J0690; J1100; J1790; J2250; J2405; J2704; J2795; J3010

== ENCOUNTER → 2024-07-24 08:59 | Outpatient (BNV) | payer OTHER, SELFPAY | PROVIDERS: PCP Internal Medicine; Visit Provider Surgery | DX: K80.20 Calculus of gallbladder without cholecystitis without obstruction (principal) | CPT/HCPCS: 47562 ==

== ENCOUNTER 2024-07-31 14:10 | Outpatient (AMB) | payer OTHER, SELFPAY ==
--- NOTE | 2024-07-31 14:17 | MHC.OFFVISWM ---
VS Expanded 07/31/24 14:27 BP 172/85 H Blood Pressure Location Rt brachial Blood Pressure Position Sitting Pulse 92 Pulse Source Pulse Oximeter Temp 97.6 F Temperature Source Tympanic Pulse Oximetry 95 Oxygen Delivery Method Room Air Height 5 ft 3 in Weight 128 lb 12.8 oz BMI 22.8 Body Fat % 29.6 Body Fat Mass 38.2 Fat Free Mass 90.6 Visceral Fat Rating 6.0 Body Water % 49.7 Body Water Mass 64.0 Muscle Mass/Score 86.0 Basal Metabolic Rate/Score 1,220 Intake Visit Reasons: (OV) s/p Lap Jodee 07/23/24 Allergies No Known Allergies Allergy (Verified 07/24/24 11:22) HPI Comments Details: Patient is a pleasant 59-year-old female who returns to the office today in follow-up. She is 8 days status post laparoscopic cholecystectomy performed on 07/23/2024. Pathology revealed no evidence of malignancy. There were 2 gallstones. She also is status post sleeve gastrectomy performed on 08/28/2023. Weight today is 128.8 with a BMI of 22.8.There has been a 100.2 pound weight loss,(initial weight 229 pounds) since starting the program on 05/14/23 reflecting a 43.7% total body weight loss and a weight loss of 59.7 pounds since surgery (operative weight 188.5 pounds) reflecting a 31.6% TBWL since surgery. She does continue to complain of intermittent left upper quadrant/flank pain. She states that she had a colonoscopy last month and was told that she has redundant colon. This may be a contributing factor to her discomfort in that area which is intermittent as mentioned above. She had a significant workup and this also included evaluation of the area during the laparoscopic cholecystectomy. There was no evidence of organ dysfunction or anatomical abnormality within the operative field of the sleeve gastrectomy to account for her discomfort [facility] Medical History Splenic artery aneurysm Internal and external prolapsed hemorrhoids Cholelithiasis Pericarditis BMI 31.0-31.9,adult DJD (degenerative joint disease) Hyperlipidemia Hypothyroidism Hypertension Morbid obesity Surgical History (Updated 07/31/24 @ 14:41 by NATE Pena) Hx laparoscopic cholecystectomy History of sleeve gastrectomy H/O colonoscopy History of salpingo-oophorectomy Hx of section Hx of tonsillectomy Family History Mother Cancer Father Cancer Brother No problems noted. Brother No problems noted. Brother No problems noted. Brother No problems noted. Brother No problems noted. Sister No problems noted. Sister No problems noted. Son No problems noted. Daughter No problems noted. Daughter Hyperthyroidism Social History Household Members: Spouse and Family Housing: House Are you a primary certified social workers in health care to a significant other at home: No Do you presently have visiting nurse or other home services: No Alcohol intake: never Patient Tobacco Use Status: Former Tobacco user Tobacco use type: Cigarette Years Smoked: 20 Current occupational status: employed Current occupation: school bus- Physical Exam Vital Signs: Last Vital Signs Temp 97.6 F 07/31/24 14:27 Pulse 92 07/31/24 14:27 BP 172/85 H 07/31/24 14:27 Pulse Ox 95 07/31/24 14:27 Oxygen Delivery Method Room Air 07/31/24 14:27 BMI result Body Mass Index 22.8 GI Inspection: Yes incision (Clean, dry, intact) Assessment & Plan Assessment & Plan (1) S/P laparoscopic cholecystectomy: Code(s): Z90.49 - Acquired absence of other specified parts of digestive tract Category: Surgical Plan: 8 days post sleeve gastrectomy. Continue to follow meal plan as directed by Dr. Florentino. Pathology without malignancy. Positive cholelithiasis. (2) S/P laparoscopic sleeve gastrectomy: Comment: f/u Dr. Hicks- sent to GI- Code(s): Z98.84 - Bariatric surgery status Category: Surgical Plan: As above. Follow-up in the office next month for her 2 year follow-up
[2024-07-31 14:27] VITALS: BP 172/85; PULSE 92; TEMP 36.4; O2SAT 95; BMI 22.8
== END 2024-07-31 14:42 | disposition home or self-care (01) ==
PROVIDERS: PCP Internal Medicine; Visit Provider Physician Assistant Surgical
DX: Z90.49 Acquired absence of other specified parts of digestive tract (principal); Z98.84 Bariatric surgery status
CPT/HCPCS: 99024

== ENCOUNTER → 2024-07-31 14:10 | Outpatient (BNVA) | payer OTHER, SELFPAY | PROVIDERS: PCP Internal Medicine; Visit Provider Physician Assistant Surgical ==